=== PATIENT | female | born 1945 | race Caucasian/White ===

== ENCOUNTER 2021-08-12 15:56 | Outpatient (REF) | payer MEDICARE, SELFPAY ==
--- NOTE | ~2021-08-12 | US_ITS ---
EXAMINATION: US VENOUS ULTRASOUND WITH DOPPLER LOWER EXTREMITY, LEFT CLINICAL INFORMATION: Left leg edema COMPARISON: None TECHNIQUE: Ultrasound of the deep veins is performed from the hip to the calf with compression sonography and color and pulse Doppler assessment. Spectral analysis with color-flow imaging is performed. FINDINGS: There is normal venous compression and respiratory variation and augmented flow. The visualized common femoral vein, superficial femoral vein, profunda femoral vein, popliteal vein, and the trifurcation region shows no evidence of deep venous thrombosis. There is a small complex Riley's cyst. There are small normal-appearing left groin lymph nodes. US/US venous duplex LE LT IMPRESSION: No DVT demonstrated in the left lower extremity. Small Riley's cyst.
== END 2021-08-12 15:57 | disposition home or self-care (01) ==
LOC: HO.US 15:56
PROVIDERS: PCP Internal Medicine; Visit Provider Internal Medicine
DX: R60.0 Localized edema (principal)
CPT/HCPCS: 93971

== ENCOUNTER 2021-10-06 10:30 | Outpatient (REF) | payer MEDICARE, SELFPAY ==
--- NOTE | ~2021-10-06 | US_ITS ---
EXAMINATION: US ABDOMEN COMPLETE CLINICAL INFORMATION: Elevated liver function tests.. COMPARISON: None TECHNIQUE: Real-time imaging of the abdominal viscera. FINDINGS: PANCREAS: The visualized head and body of the pancreas appears unremarkable. Remainder of the pancreas is obscured by bowel gas. ABDOMINAL AORTA: The proximal, mid, and distal segments are normal in caliber. INFERIOR VENA CAVA: Visualized portions are normal. LIVER: Normal. The liver is normal in size. The liver contour is normal. Parenchymal echogenicity is normal. No focal hepatic lesion. There is no intrahepatic biliary duct dilatation seen. GALLBLADDER: Multiple echogenic nonmobile nonshadowing foci adjacent to the gallbladder wall, suggestive of polyps. The larger polyps measures 4 x 3 x 3 mm. No shadowing calculi. No wall thickening or pericholecystic fluid. COMMON BILE DUCT: Normal in caliber measuring 0.4 cm in diameter. RIGHT KIDNEY: Normal. No hydronephrosis. No renal calculi or focal parenchymal lesions. The kidney measures 10.3 cm in maximum dimension. LEFT KIDNEY: Normal. No hydronephrosis. No renal calculi or focal parenchymal lesions. The kidney measures 11.3 cm in maximum dimension. SPLEEN: Normal. The spleen measures 9.3 cm in maximum dimension. FREE FLUID: None. US/US abdomen complete IMPRESSION: 1. Findings suggest multiple gallbladder polyps, larger measuring 4 mm. Follow-up ultrasound in 6-12 months could be considered to ensure stability. 2. Otherwise unremarkable study.
== END 2021-10-06 10:31 | disposition home or self-care (01) ==
LOC: HO.HMGCX 10:30
PROVIDERS: PCP Internal Medicine; Visit Provider Internal Medicine
DX: R74.8 Abnormal levels of other serum enzymes (principal)
CPT/HCPCS: 76700

== ENCOUNTER 2022-04-14 08:47 | Outpatient (REF) | payer MEDICARE, SELFPAY ==
--- NOTE | ~2022-04-14 | US_ITS ---
EXAMINATION: US ABDOMEN COMPLETE CLINICAL INFORMATION: Elevated alkaline phosphatase. Gallbladder polyp. COMPARISON: Ultrasound abdomen complete 10/06/2021. TECHNIQUE: Real-time imaging of the abdominal viscera. FINDINGS: PANCREAS: Visualized head and body of the pancreas is homogeneous echotexture. The tail is not optimally visualized. ABDOMINAL AORTA: There is mild atherosclerosis of the abdominal aorta. INFERIOR VENA CAVA: Visualized portions are normal. LIVER: Normal. The liver is normal in size. The liver contour is normal. Parenchymal echogenicity is normal. No focal hepatic lesion. There is no intrahepatic biliary duct dilatation seen. GALLBLADDER: There are 3 nonmobile echogenic polyps along the inner gallbladder wall. The largest polyp measuring 0.5 x 0.5 x 0.4 cm. Gallbladder wall thickness measures 0.3 cm. The gallbladder is physiologically distended without evidence of stones, sludge, wall thickening or pericholecystic fluid. COMMON BILE DUCT: Normal in caliber measuring 0.6 cm in diameter. RIGHT KIDNEY: There is an anechoic cyst in the upper pole measuring 1.6 x 1.5 x 1.6 cm. There is mild pelvic fullness. No hydronephrosis or renal calculi. The kidney measures 11.2 cm in maximum dimension. LEFT KIDNEY: The left kidney is not optimally visualized. No hydronephrosis. No renal calculi or focal parenchymal lesions. The kidney measures 11.0 cm in maximum dimension. SPLEEN: Normal. The spleen measures 10.8 cm in maximum dimension. FREE FLUID: None. US/US abdomen complete IMPRESSION: At least 3 gallbladder polyps. No echogenic gallstones or wall thickening. Mild right kidney pelvic fullness with anechoic cyst upper pole measuring 1.6 cm. Mild atherosclerotic changes of abdominal aorta without dilation. Suboptimal visualization of left kidney.
== END 2022-04-14 08:48 | disposition home or self-care (01) ==
LOC: HO.US 08:47
PROVIDERS: PCP Internal Medicine; Visit Provider Internal Medicine
DX: K82.4 Cholesterolosis of gallbladder (principal); R74.8 Abnormal levels of other serum enzymes
CPT/HCPCS: 76700

== ENCOUNTER 2022-08-24 12:39 | Outpatient (REF) | payer MEDICARE, SELFPAY ==
--- NOTE | ~2022-08-24 | MM_ITS ---
EXAMINATION: MM SCREENING DIGITAL BREAST TOMOSYNTHESIS, BILATERAL CLINICAL INFORMATION: Screening. Asymptomatic. The lifetime risk of breast cancer based on the Tyrer-Cuzick Model is 2%. COMPARISON: Mammography: 06/12/2020, 11/01/2018, 09/14/2017 TECHNIQUE: Digital breast tomosynthesis is performed in both the craniocaudal and mediolateral oblique views along with computer-aided detection (CAD). Synthesized 2D images are generated from the tomosynthesis. FINDINGS: There are scattered areas of fibroglandular density (ACR BI-RADS breast composition Category b). Parenchymal pattern is similar to prior studies. There is no developing density or interval mass or architectural abnormality. There are vascular calcifications again noted primarily on the anterior breasts. Dermal lesion overlies the upper anterior left breast. The axilla are unremarkable. No significant changes. MM/MM tomosynthesis screening BI IMPRESSION: No mammographic evidence of malignancy. ASSESSMENT: BI-RADS 2: Benign RECOMMENDATION: Routine annual mammography screening. This patient's information was entered into a reminder system with a target due date for their next mammogram.
== END 2022-08-24 12:40 | disposition home or self-care (01) ==
LOC: HO.MAMMO 12:39
PROVIDERS: Visit Provider Internal Medicine
DX: Z12.31 Encounter for screening mammogram for malignant neoplasm of breast (principal)
CPT/HCPCS: 77063; 77067

== ENCOUNTER 2023-08-30 13:48 | Outpatient (REF) | payer MEDICARE, SELFPAY | END 2023-08-30 13:49 | disposition home or self-care (01) | LOC: HO.MAMMO 13:48 | PROVIDERS: PCP Internal Medicine; Visit Provider Radiology Diagnostic Radiology | DX: Z12.31 Encounter for screening mammogram for malignant neoplasm of breast (principal) | CPT/HCPCS: 77063; 77067 ==

== ENCOUNTER → 2023-08-30 14:00 | Outpatient (BNV) | payer MEDICARE, SELFPAY | PROVIDERS: PCP Internal Medicine; Visit Provider Radiology Diagnostic Radiology | DX: Z12.31 Encounter for screening mammogram for malignant neoplasm of breast (principal) | CPT/HCPCS: 77063; 77067 ==

== ENCOUNTER 2023-09-04 17:40 | Emergency (ER) | payer MEDICARE, SELFPAY ==
--- NOTE | ~2023-09-04 | XR_ITS ---
EXAMINATION: XR WRIST, RIGHT XR HAND, RIGHT CLINICAL INFORMATION: Fall, pain. COMPARISON: None available. TECHNIQUE: 4 views of the right wrist and right hand were obtained. FINDINGS: Comminuted, displaced and impacted distal radial fracture with intra-articular extension. Minimally displaced ulnar styloid fracture. Background of decreased bone mineralization with multifocal moderate to severe osteoarthritis manifested by joint space narrowing, subcortical sclerosis and in some sites marginal erosions; these are more prominent in the distal third and fourth interphalangeal joints, middle fifth interphalangeal joints, second and third metacarpophalangeal joints, and first carpometacarpal space. Chronic appearing fixed flexion deformities of the third, fourth and fifth distal phalanges. XR/XR hand wrist RT IMPRESSION: 1. Comminuted, impacted and displaced distal radial fracture with intra-articular extension. 2. Minimally displaced ulnar styloid fracture. 3. 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
--- NOTE | 2023-09-04 18:04 | ED_ITS ---
HPI - Fall General Chief Complaint: Extremity Injury, Upper Stated Complaint: fall at home, wrist injury Time Seen by Provider: 09/04/23 18:27 Source: patient and family Mode of arrival: wheelchair Limitations: no limitations History of Present Illness HPI Narrative: Patient is a 78-year-old female presents emergency department for evaluation after of Mechanical trip and fall while getting off of a stool at home. No precipitating symptoms. Sustaining injury to right wrist and right hip (history bilateral hip replacement). Denies head strike loss of consciousness. Denies use of anticoagulants. Denies numbness tingling. Related Data Previous Rx's Medication Instructions Recorded oxycodone 5 mg tablet 5 mg PO Q6H PRN pain #14 tabs 09/04/23 Allergies Allergy/AdvReac Type Severity Reaction Status Date / Time oxaprozin [Daypro] Allergy Unknown Rash Verified 09/04/23 18:09 alendronate sodium Allergy Unknown Verified 09/04/23 18:09 amlodipine Allergy Swelling Verified 09/04/23 18:09 amoxicillin Allergy Diarrhea Verified 09/04/23 18:09 azithromycin Allergy Rash Verified 09/04/23 18:09 carvedilol Allergy Joint Pain Verified 09/04/23 18:09 hydrochlorothiazide Allergy Unknown Verified 09/04/23 18:09 labetalol Allergy Swelling Verified 09/04/23 18:09 nitrofurantoin Allergy Gastrointestinal Verified 09/04/23 18:09 Upset Sulfa (Sulfonamide Allergy Gastrointestinal Verified 09/04/23 18:09 Antibiotics) Upset sulfamethoxazole Allergy Gastrointestinal Verified 09/04/23 18:09 [From Upset Sulfamethoxazole-Trimethoprim] trimethoprim Allergy Gastrointestinal Verified 09/04/23 18:09 [From Upset Sulfamethoxazole-Trimethoprim] Caltrate 600 Allergy Unknown Unknown Uncoded 09/04/23 18:04 Flonase Allergy Unknown Unknown Uncoded 09/04/23 18:04 Review of Systems Review of Systems: Yes all other systems are reviewed and are negative PMFSH Past Medical History Attestation statement: The following information was validated with the patient. Source: old records reviewed Social History Social History Smoked in Last 30 Days: No Use of substances other than those prescribed or required for medical reasons: No Advance Directives: No Advance Directives Information Provided: Yes Physical Exam Vital Signs: Vital Signs: Last Vital Signs Temp 96.1 F L 09/04/23 18:09 Pulse 79 09/04/23 20:00 Resp 16 09/04/23 20:00 BP 165/82 H 09/04/23 20:00 Pulse Ox 97 09/04/23 20:00 O2 Del Method Room Air 09/04/23 20:00 BMI result Body Mass Index 23.2 Appearance: Alert.?Oriented to person, place and time. No acute distress.?Normal affect. Head: Normocephalic, Eyes: Pupils equal, round and reactive to light.? ENT: Pharynx normal.?? Neck: Normal inspection.? Neck supple.??No midline cervical spine tenderness, step-offs, CVS: Heart sounds normal. Normal heart rate and rhythm.? Pulses normal.?? Respiratory: No respiratory distress.? Lung sounds clear to auscultation bilaterally?? Abdomen: Soft and non-tender. Normoactive bowel sounds. Skin: Skin warm and dry.? Normal skin color.? Extremities: No lower extremity edema.? No calf ttp?pain upon palpation of the right lateral hip. 2+ DP/PT pulse bilaterally. No shortening or rotation of the right lower extremity. Right wrist 2+ radial pulse, localized swelling along the radial, decreased AROM, tenderness to palpation. Neuro: Moves all extremities spontaneously. Sensation intact bilaterally. CN II- XII intact. No focal neuro deficits. Medications Administered Discontinued Medications Generic Name Dose Route Start Last Admin Trade Name Freq PRN Reason Stop Dose Admin Acetaminophen 975 mg 09/04/23 18:30 09/04/23 19:01 Acetaminophen 325 Mg Tablet PO 09/04/23 18:31 975 mg ONCE ONE Administration Oxycodone HCl 5 mg 09/04/23 19:55 09/04/23 20:05 Oxycodone Hcl Immed Release 5 Mg Tablet PO 09/04/23 19:56 5 mg ONCE ONE Administration Procedures Orthopedic Splinting/Casting Injury #1: Side: right Upper Extremity Injury Location: wrist Upper Extremity Immobilizer: sugar tong splint Medical Decision Making Medical Decision Making MDM Narrative: Patient is a 78-year-old female who presents emergency department for evaluation after mechanical fall landing on the right hand and hip with pain as per HPI. Examination notable for tenderness upon palpation of the right lateral hip, tenderness and swelling to the radial aspect of the wrist with decreased AROM. Bilateral upper and lower extremities are neurovascularly intact distally. Denies any head strike or loss of consciousness and She has no focal neurological deficits. She presents here with her family today who confirms history. No precipitating symptoms to suggest alternative cause for fall. XR imaging ordered for right hip she however refuses, reporting that she does not believe there is anything ?seriously injured?. XR imaging of the wrist reveals a comminuted impacted distal radius fracture, ulnar styloid fracture for which she was placed in a sugar-tong splint, remained neurovascularly intact distally after application. Advised that she will require outpatient follow-up with orthopedics. Reviewed worrisome signs and symptoms that would warrant re- evaluation in the emergency department. Differential Diagnosis Differential Diagnoses: The differential diagnosis associated with the presentation includes (Fracture, dislocation, sprain, fall) Independent Interpretation I performed an independent interpretation of an: Plain X-Ray (I person interpreted XR imaging and) Radiology Impression Discussion of test interpretation with radiology: I have reviewed the radiologist's reading. Independent Historian Clinical information obtained from an independent historian. History obtained from or confirmed by: Other (Daughter present who confirms history) External Record Review External record reviewed: Outpatient record and Other ([facility], no conflicts) Prescription Management I considered prescription management with: Pain Medication Discharge Plan Discharge Clinical Impression: Fracture of right ulnar styloid Distal radius fracture, right Qualifiers: Encounter type: initial encounter Fracture type: closed Patient Disposition: Home, Self-Care Instructions: Wrist Fracture in Adults (ED) Additional Instructions: Wear the sling as provided. The splint must remain in place at all times. It cannot be removed. It cannot get wet. Please be sure to rest, apply ice for 10-15 minutes 4 times daily. Elevate the arm above the level of your chest. You can take Tylenol 500 mg, 2 tablets (1,000mg) every 4-6 hours as needed for pain, but not to exceed 3 doses daily (3,000mg). I have sent a prescription for oxycodone to the pharmacy to use as needed for pain that is unrelieved by Tylenol. This is a narcotic medication. May make you drowsy. He can be addictive. You should not drive, drink alcohol, operate machinery while taking this medication. I have provided you with the contact information for the orthopedic office associated with this hospital. Should you wish to follow-up with your previous orthopedic office you are entitled to do so, they may contact the Medical Records Department to obtain imaging results. Return back to the emergency department with any new or worsening symptoms or concerns including severe worsening pain, discoloration to the fingers, persistent numbness, inability to move the fingers. XR/XR hand wrist RT IMPRESSION: 1. Comminuted, impacted and displaced distal radial fracture with intra-articular extension. 2. Minimally displaced ulnar styloid fracture. 3. 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 ? Prescriptions: New oxycodone 5 mg tablet 5 mg PO Q6H PRN (Reason: pain) Qty: 14 0RF Rx Instructions: Partial Fill upon patient request. Referrals: Balaji Mercado MD [Primary Care Provider] - Veronica Carey MD [Physician] -
[2023-09-04 18:09] VITALS: BP 177/80; PULSE 70; RESP 18; TEMP 35.6; O2SAT 100; BMI 23.2
[2023-09-04] MEDS: Acetaminophen 325 MG TABLET 975 MG PO (19:01)
[2023-09-04 20:00] VITALS: BP 165/82; PULSE 79; RESP 16; O2SAT 97
[2023-09-04] MEDS: oxyCODONE HCl Immed Release 5 MG TABLET PO (20:05)
--- NOTE | 2023-09-04 20:27 | PC.NURSE ---
sling applied by alana guzman at bedside. no distress- tolerated well.
--- NOTE | 2023-09-04 20:46 | PC.NURSE ---
pt d/c'd w sling intact. aware of d/c instructions by rn education. walked out w steady gait.
== END 2023-09-04 20:46 | disposition home or self-care (01) ==
PROVIDERS: Emergency Provider Internal Medicine; PCP Internal Medicine
DX: S52.611A Displaced fracture of right ulna styloid process, initial encounter for closed fracture (principal); S52.571A Other intraarticular fracture of lower end of right radius, initial encounter for closed fracture; W17.89XA Other fall from one level to another, initial encounter; Y93.9 Activity, unspecified; Y92.9 Unspecified place or not applicable; Y99.9 Unspecified external cause status
CPT/HCPCS: 29125; 73110; 73130; 99283; 99284

== ENCOUNTER 2023-09-09 14:38 | Outpatient (AMB) | payer MEDICARE, SELFPAY ==
--- NOTE | 2023-09-09 14:40 | A.OFFVIS_ITS ---
Intake Intake Visit Reasons: FC- Distal radius fx Intake Note: Samantha is a 78 year old right hand dominant female who presents today for a evaluation of her right wrist fx, DOI 09/04/23. Patient reports when she was cleaning her cabinets she lost balance and she fell on her right arm and right hip. She states having pain in her wrist and she feels pressure. Having off and on numbness and swelling. Allergies oxaprozin [Daypro] Allergy (Unknown, Verified 09/04/23 18:09) Rash alendronate sodium Allergy (Verified 09/04/23 18:09) Unknown amlodipine Allergy (Verified 09/04/23 18:09) Swelling amoxicillin Allergy (Verified 09/04/23 18:09) Diarrhea azithromycin Allergy (Verified 09/04/23 18:09) Rash carvedilol Allergy (Verified 09/04/23 18:09) Joint Pain hydrochlorothiazide Allergy (Verified 09/04/23 18:09) Unknown labetalol Allergy (Verified 09/04/23 18:09) Swelling nitrofurantoin Allergy (Verified 09/04/23 18:09) Gastrointestinal Upset Sulfa (Sulfonamide Antibiotics) Allergy (Verified 09/04/23 18:09) Gastrointestinal Upset sulfamethoxazole [From Sulfamethoxazole-Trimethoprim] Allergy (Verified 09/04/23 18:09) Gastrointestinal Upset trimethoprim [From Sulfamethoxazole-Trimethoprim] Allergy (Verified 09/04/23 18:09) Gastrointestinal Upset Caltrate 600 Allergy (Unknown, Uncoded 09/04/23 18:04) Unknown Flonase Allergy (Unknown, Uncoded 09/04/23 18:04) Unknown HPI FC- Distal radius fx HPI Details 78-year-old right hand dominant female anisha robles presents in the office today, as a new patient, for an evaluation of right wrist pain. The patient presented to the ED on 09/04/2023 status post a mechanical trip and fall while getting off of a stool at home while cleaning her cabinets. She states when she fell she hit her right arm and hip. X-rays of the right wrist were obtained. The patient was placed in a sugar tong splint and referred to orthopedics. She reports having pain in her right wrist with pressure. She confirms intermittent numbness and edema. She is accompanied in the office today by her daughter, who works at [employer], and will help to care for her mother post-op surgery and her son. Patient has an allergy history, as follows: -Oxaprozin; rash -Alendronate sodium; unknown -Amlodipine; edema -Amoxicillin; diarrhea -Azithromycin; rash -Carvedilol; joint pain -Hydrochlorothiazide; unknown -Labetalol; edema -Nitrofurantoin; GI upset -Sulfa; GI upset -Sulfamethoxazole; GI upset -Trimethoprim; GI upset -Caltrate 600; unknown -Flonase; unknown Patient is currently taking, as follows: -Betamethasone dipropionate 0.05% topica l cream -Hydrocortisone 2.5% topical cream BID -Loratadine 10 mg PO daily -Metronidazole 0.75% topical BID -Olmesartan 40 mg PO daily -Oxycodone 5 mg PO Q6H PRN Patient has a medical history, as follows: -Rheumatoid arthritis in the upper extre mities -Hypothyroid -Hypertension -Osteopenia Patient has a surgical history, as follows: -History of right hip arthroplasty -History of left hip arthroplasty Patient has a social history, as follows: -She is unemployed but stays active at [employer] [employer]. Review of Systems Const All systems reviewed & are unremarkable except as noted in HPI and below Physical Exam Const General: cooperative and no acute distress Orientation/consciousness: patient oriented x3 Resp Effort & Inspection: normal respiratory effort and able to speak in complete sentences Cardio Peripheral pulses: Peripheral pulses 2+ throughout Skin General skin exam: no rashes or lesions noted Neuro General: patient oriented x3 Extrem Other: Right wrist: Skin is intact. Circumferential resolving ecchymosis at the distal bicep extending to the elbow. Able to move all digits. Able to perform thumbs up. Sensation intact. Capillary refill is brisk. Office Procedures Casting/Splints [id number] Splint Application Procedure code (CPT) selection complete Assessment & Plan Assessment & Plan (1) Distal radius fracture, right: Code(s): S52.501A - Unspecified fracture of the lower end of right radius, initial encounter for closed fracture Qualifiers: Encounter type: initial encounter Fracture morphology: other fracture Fracture type: closed Qualified Code(s): S52.591A - Other fractures of lower end of right radius, initial encounter for closed fracture (2) Fracture of right ulnar styloid: Code(s): S52.611A - Displaced fracture of right ulna styloid process, initial encounter for closed fracture Qualifiers: Encounter type: initial encounter Fracture alignment: displaced Fracture type: closed Qualified Code(s): S52.611A - Displaced fracture of right ulna styloid process, initial encounter for closed fracture (3) Osteoarthritis of right wrist: Code(s): M19.031 - Primary osteoarthritis, right wrist Qualifiers: Osteoarthritis type: unspecified Qualified Code(s): M19.031 - Primary osteoarthritis, right wrist Plan Ms. Lr is a 78-year-old right hand dominant female who presents in the office today, as a new patient, for an evaluation of right wrist pain. The patient presented to the ED on 09/04/2023 status post a mechanical trip and fall while getting off of a stool at home while cleaning her cabinets. She states when she fell she hit her right arm and hip. X-rays of the right wrist were obtained. The patient was placed in a sugar tong splint and referred to orthopedics. She reports having pain in her right wrist with pressure. She confi guillermo intermittent numbness and edema. She is accompanied in the office today by her daughter, who works at [employer], and will help to care for her mother post-op surgery and her son. Patient has an allergy history, as follows: -Oxaprozin; rash -Alendronate sodium; unknown -Amlodipine; edema -Amoxicillin; diarrhea -Azithromycin; rash -Carvedilol; joint pain -Hydrochlorothiazide; unknown -Labetalol; edema -Nitrofurantoin; GI upset -Sulfa; GI upset -Sulfamethoxazole; GI upset -Trimethoprim; GI upset -Caltrate 600; unknown -Flonase; unknown Patient is currently taking, as follows: -Betamethasone dipropionate 0.05% topical cream -Hydrocortisone 2.5% topical cream BID -Loratadine 10 mg PO daily -Metronidazole 0.75% topical BID -Olmesartan 40 mg PO daily -Oxycodone 5 mg PO Q6H PRN Patient has a medical history, as follows: -Rheumatoid arthritis in the upper extremities -Hypothyroid -Hypertension -Osteopenia Patient has a surgical history, as follows: -History of right hip arthroplasty -History of left hip arthroplasty Patient has a social history, as follows: -She is unemployed but stays active at home. I discussed in detail the procedure and what to expect pre and post operatively. We discussed the risks, benefits and alternatives to the surgery as well as the rehabilitation course. The risks; which include, but are not limited to infection, bleeding, nerve injury, ongoing pain, swelling, and stiffness, perioperative risk of injury to bones and soft tissues, and blood clots. I have answered all questions and with their understanding they have consented to move forward with a right wrist open reduction internal fixation to be performed on next week by Dr. Mustapha Gan. Dr. Gan was available to speak with me about the patient while in the office and collaborative treatment plan was made. The patient was placed in a short arm volar splint, custom made, while in the office today. Follow up will be at the post operative appointment, or sooner if needed. X-rays of the right wrist, obtained on 09/04/2023, revealed: 1. Comminuted, impacted and displaced distal radial fracture with intra-articular extension. 2. Minimally displaced ulnar styloid fracture. 3. 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 Patient Instructions: Scribed for Christina Lozoya PA-C by Yakelin Guido medical office technologist, on 09/09/2023 at 2:42 pm, EST. Coding Level of Care Code New Pt Level 4 (05822) Diagnoses Other closed fracture of distal end of right radius, initial encounter S52.591A Encounter type: initial encounter Fracture morphology: other fracture Fracture type: closed Closed displaced fracture of styloid process of right ulna, initial encounter S52.611A Encounter type: initial encounter Fracture alignment: displaced Fracture type: closed Osteoarthritis of right wrist, unspecified osteoarthritis type M19.031 Osteoarthritis type: unspecified CPT Codes Splint - CPT: 99202-[id number] Splint Application ([id number])
== END 2023-09-09 16:00 ==
PROVIDERS: PCP Internal Medicine; Visit Provider Physician Assistant
DX: S52.591A Other fractures of lower end of right radius, initial encounter for closed fracture (principal); S52.611A Displaced fracture of right ulna styloid process, initial encounter for closed fracture; M19.031 Primary osteoarthritis, right wrist
CPT/HCPCS: 25600; 99204

== ENCOUNTER → 2023-09-09 14:38 | Outpatient (BNVA) | payer MEDICARE, SELFPAY | PROVIDERS: PCP Internal Medicine; Visit Provider Physician Assistant | DX: S52.591A Other fractures of lower end of right radius, initial encounter for closed fracture (principal); S52.611A Displaced fracture of right ulna styloid process, initial encounter for closed fracture; M19.031 Primary osteoarthritis, right wrist | CPT/HCPCS: 25600; 99202 ==

== ENCOUNTER 2023-09-15 06:23 | Day surgery (SDC) | payer MEDICARE, SELFPAY ==
--- NOTE | 2023-09-14 12:06 | HO.ANESPROP2 ---
Documented by User: Renetta Eller NP 09/14/23 12:08 HPI - Anesthesia Eval Consult details Narrative: 78yo F for Right Radius Distal Fracture ORIF *Multiple Med allergies* PMFSH Active Problems Active Problems: All Active Problems (Updated 09/09/23 @ 15:20 by Yakelin Guido) Osteoarthritis of right wrist (Acute) Past Medical History Medical History Osteopenia Hypothyroid HLD (hyperlipidemia) HTN (hypertension) Rheumatoid arthritis Surgical History Surgical History S/P total left hip arthroplasty S/P total right hip arthroplasty Social History Social History Patient Tobacco Use Status: Never used Tobacco Have you been hit, kicked, punched, or otherwise hurt by someone within the past year? If so, by whom?: No Are you DNR?: No Advance Directives: No Advance Directives Information Provided: Yes Nutrition Risks: No Nutritional Risk Patient : No Meds Allergies Allergy/AdvReac Type Severity Reaction Status Date / Time oxaprozin [Daypro] Allergy Unknown Rash Verified 09/04/23 18:09 alendronate sodium Allergy Unknown Verified 09/04/23 18:09 amlodipine Allergy Swelling Verified 09/04/23 18:09 amoxicillin Allergy Diarrhea Verified 09/04/23 18:09 azithromycin Allergy Rash Verified 09/04/23 18:09 carvedilol Allergy Joint Pain Verified 09/04/23 18:09 hydrochlorothiazide Allergy Unknown Verified 09/04/23 18:09 labetalol Allergy Swelling Verified 09/04/23 18:09 nitrofurantoin Allergy Gastrointestinal Verified 09/04/23 18:09 Upset Sulfa (Sulfonamide Allergy Gastrointestinal Verified 09/04/23 18:09 Antibiotics) Upset sulfamethoxazole Allergy Gastrointestinal Verified 09/04/23 18:09 [From Upset Sulfamethoxazole-Trimethoprim] trimethoprim Allergy Gastrointestinal Verified 09/04/23 18:09 [From Upset Sulfamethoxazole-Trimethoprim] Caltrate 600 Allergy Unknown Unknown Uncoded 09/04/23 18:04 Flonase Allergy Unknown Unknown Uncoded 09/04/23 18:04 Home Medications Medication Instructions Recorded Confirmed Last Taken Type betamethasone dipropionate 0.05 % appl topical 09/09/23 Unknown History topical cream hydrocortisone 2.5 % topical cream appl topical BID 09/09/23 Unknown History loratadine 10 mg tablet 10 mg PO DAILY 09/09/23 Unknown History metronidazole 0.75 % topical cream appl topical BID 09/09/23 Unknown History mupirocin 2 % topical ointment 1 appl topical BID-TID 09/09/23 Unknown History olmesartan 40 mg tablet 40 mg PO DAILY 09/09/23 Unknown History Assessment and Plan Assessment Anesthesia Assessment: Chart Reviewed Documented by User: Alejandro Haynes MD 09/15/23 07:34 [facility] Past Medical History Medical History Osteopenia Hypothyroid HLD (hyperlipidemia) HTN (hypertension) Rheumatoid arthritis Family History Family history of problems with anesthesia: No Surgical History Surgical History S/P total left hip arthroplasty S/P total right hip arthroplasty History of Problems with Anesthesia: No Social History Social History Patient Tobacco Use Status: Never used Tobacco Have you been hit, kicked, punched, or otherwise hurt by someone within the past year? If so, by whom?: No Are you DNR?: No Advance Directives: No Advance Directives Information Provided: Yes Nutrition Risks: No Nutritional Risk Patient : No Meds Allergies Allergy/AdvReac Type Severity Reaction Status Date / Time oxaprozin [Daypro] Allergy Unknown Rash Verified 09/04/23 18:09 alendronate sodium Allergy Unknown Verified 09/04/23 18:09 amlodipine Allergy Swelling Verified 09/04/23 18:09 amoxicillin Allergy Diarrhea Verified 09/04/23 18:09 azithromycin Allergy Rash Verified 09/04/23 18:09 carvedilol Allergy Joint Pain Verified 09/04/23 18:09 hydrochlorothiazide Allergy Unknown Verified 09/04/23 18:09 labetalol Allergy Swelling Verified 09/04/23 18:09 nitrofurantoin Allergy Gastrointestinal Verified 09/04/23 18:09 Upset Sulfa (Sulfonamide Allergy Gastrointestinal Verified 09/04/23 18:09 Antibiotics) Upset sulfamethoxazole Allergy Gastrointestinal Verified 09/04/23 18:09 [From Upset Sulfamethoxazole-Trimethoprim] trimethoprim Allergy Gastrointestinal Verified 09/04/23 18:09 [From Upset Sulfamethoxazole-Trimethoprim] Caltrate 600 Allergy Unknown Unknown Uncoded 09/04/23 18:04 Flonase Allergy Unknown Unknown Uncoded 09/04/23 18:04 Home Medications Medication Instructions Recorded Confirmed Last Taken Type betamethasone dipropionate 0.05 % appl topical 09/09/23 Unknown History topical cream hydrocortisone 2.5 % topical cream appl topical BID 09/09/23 Unknown History loratadine 10 mg tablet 10 mg PO DAILY 09/09/23 Unknown History metronidazole 0.75 % topical cream appl topical BID 09/09/23 Unknown History mupirocin 2 % topical ointment 1 appl topical BID-TID 09/09/23 Unknown History olmesartan 40 mg tablet 40 mg PO DAILY 09/09/23 Unknown History Exam Airway Mallampati Class: II TM Dist: >3cm Neck ROM: Limited Heart: rrr Lungs: cta Assessment and Plan Assessment Anesthesia Assessment: Anesthesia Plan Discussed Final Anesthetic Review Family History of Problems with Anesthesia: No History of Problems with Anesthesia: No NPO: Yes ASA Class: III Final Preanesthetic Review: No Changes in Pt Med Stat, Meds/Allgs Chart Reviewed, Consent Obtained/Reviewed and Anes Risks/Benef Reviewed Patient Risk: Intermediate Procedure Risk: Intermediate Anesthetic Plan Anesthetic Plan: GA, Regional Block and Agree w/ Assess. and Plan Disposition: Standard PACU
[2023-09-15] VITALS (7 sets, daily range): BP systolic 157–190; BP diastolic 70–82; PULSE 66–75; RESP 12–18; TEMP 36.6–36.8; O2SAT 98–100; BMI 23.4
--- NOTE | ~2023-09-15 | FL_ITS ---
EXAMINATION: XR FLUOROSCOPY WITH IMAGES CLINICAL INFORMATION: Fracture right distal radius. COMPARISON: Right hand x-ray 09/04/2023 TECHNIQUE: Fluoroscopy Supervised By: Dr. Mustapha Gan. Fluoroscopy Time: 23.44 seconds. Cumulative Dose: 0.4663 mGy. DAP: 0.0282 Gycm2. Images: 2. FINDINGS: Images demonstrate plate and screws transfixing the right distal radius fracture. There is improved alignment. FL/FL guidance in OR IMPRESSION: Fluoroscopic guidance for ORIF of right distal radius fracture.
[2023-09-15] MEDS: Lactated Ringers 1,000 ML 100 ML IVCONT (07:33)
--- NOTE | 2023-09-15 14:56 | PM.OP ---
Brief Operative Note Date of Service: 09/15/23 Pre-op diagnosis: Right distal radius fracture Post-op diagnosis: same Procedure: ORIF right distal radius fracture Implants: Le[place]aker Surgeon: Mustapha Gan MD Anesthesia: GETA Was an Binder Cutter used for this Procedure?: No Binder Cutter: Christina Lozoya Estimated blood loss (mL): 25 Tourniquet time (min): 40 IV fluids (mL): 750 Pathology: none sent Condition: stable Disposition: PACU
--- NOTE | 2023-09-17 12:58 | W.PM.OPN ---
Operative Note Operative Note Date of Service: 09/15/23 Narrative: Date of Service: 09/15/23 Pre-op diagnosis: Right distal radius fracture Post-op diagnosis: same Procedure: ORIF right distal radius fracture Implants: [place] Surgeon: Mustapha Gan MD Anesthesia: GETA Was an Relations Liaison used for this Procedure?: No Relations Liaison: Christina Lozoya Estimated blood loss (mL): 25 Tourniquet time (min): 40 IV fluids (mL): 750 Pathology: none sent Condition: stable Disposition: PACU Procedure in detail: The patient was brought to the operating room and placed supine on the hand table. The limb was prepped and draped in standard fashion and a time-out was called to identify proper site procedure proper surgeon. IV antibiotics per weight were administered. I began by exsanguinating the limb and insufflating the tourniquet to 250 mm Hg. I then made a standard incision over the FCR. FCR sheath was incised and the FCR was retracted ulnar. A irasema incision was made in the FPL sheath and this was opened up proximally and distally. The FPL was swept aside revealing the pronator quadratus which was periosteally elevated off the distal radius revealing a displaced distal radius fracture. I used a [place] and right your to remove necrotic debris and reduced the fracture. Using biplanar fluoroscopy I was satisfied with the reduction . A 0.54 K-wire was placed through the radial styloid into the radial shaft to provisionally maintain the reduction. A [place] distal radius plate was selected and placed on the distal radius. Fluoroscopic images were taken to confirm appropriate alignment on the AP and lateral projection. Once I was satisfied with this the radial styloid screw and the distal row were placed using standard AO technique. I then filled the proximal row with locking screws again confirming fracture reduction and hardware position using biplanar fluoroscopy. Once this was done I placed 2 proximal nonlocking screws through the cortical shaft reducing the plate to the bone and reapproximating the anatomic tilt of the distal radius on the lateral projection. Again once I was satisfied with the position of the plate and the fracture alignment all instrumentation was removed. The DRUJ was assessed and found to be stable and a layered closure was performed with absorbable sub-Q suture, a running prolene and skin glue. Sterile dressings were applied. Patient was placed into a well-padded volar splint. Patient was extubated brought to recovery room in stable condition there were no known complications.
== END 2023-09-15 11:30 | disposition home or self-care (01) ==
PROVIDERS: PCP Internal Medicine; Visit Provider Orthopaedic Surgery
PROC: (CPT 25608; principal; 2023-09-15 08:20)
DX: S52.571A Other intraarticular fracture of lower end of right radius, initial encounter for closed fracture (principal); S52.611A Displaced fracture of right ulna styloid process, initial encounter for closed fracture; M19.031 Primary osteoarthritis, right wrist; M06.9 Rheumatoid arthritis, unspecified; M85.80 Other specified disorders of bone density and structure, unspecified site; W08.XXXA Fall from other furniture, initial encounter; Y93.E9 Activity, other interior property and clothing maintenance; Y92.000 Kitchen of unspecified non-institutional (private) residence as the place of occurrence of the external cause; Y99.9 Unspecified external cause status; Z96.643 Presence of artificial hip joint, bilateral; I10 Essential (primary) hypertension; E03.9 Hypothyroidism, unspecified; Z79.899 Other long term (current) drug therapy; Z88.1 Allergy status to other antibiotic agents; Z88.2 Allergy status to sulfonamides; Z88.8 Allergy status to other drugs, medicaments and biological substances
CPT/HCPCS: 25608; C1713; J0665; J0690; J1100; J2405; J2704

== ENCOUNTER → 2023-09-15 06:23 | Outpatient (BNV) | payer MEDICARE, SELFPAY | PROVIDERS: PCP Internal Medicine; Visit Provider Orthopaedic Surgery | DX: S52.571A Other intraarticular fracture of lower end of right radius, initial encounter for closed fracture (principal) | CPT/HCPCS: 25608 ==

== ENCOUNTER 2023-09-21 12:09 | Outpatient (AMB) | payer MEDICARE, SELFPAY ==
--- NOTE | 2023-09-21 12:24 | A.OFFVIS_ITS ---
Intake Intake Visit Reasons: PO Rt distal radius ORIF 09/15/23 NE Intake Note: Samantha is a 78 year old female who presents today for a post op appointment s/p right distal radius ORIF 09/15/23 NE. Patient reports she is doing well, however just having numbness in her fingers. Allergies oxaprozin [Daypro] Allergy (Unknown, Verified 09/21/23 12:29) Rash alendronate sodium Allergy (Verified 09/21/23 12:29) Unknown amlodipine Allergy (Verified 09/21/23 12:29) Swelling amoxicillin Allergy (Verified 09/21/23 12:29) Diarrhea azithromycin Allergy (Verified 09/21/23 12:29) Rash carvedilol Allergy (Verified 09/21/23 12:29) Joint Pain hydrochlorothiazide Allergy (Verified 09/21/23 12:29) Unknown labetalol Allergy (Verified 09/21/23 12:29) Swelling nitrofurantoin Allergy (Verified 09/21/23 12:29) Gastrointestinal Upset Sulfa (Sulfonamide Antibiotics) Allergy (Verified 09/21/23 12:29) Gastrointestinal Upset sulfamethoxazole [From Sulfamethoxazole-Trimethoprim] Allergy (Verified 09/21/23 12:29) Gastrointestinal Upset trimethoprim [From Sulfamethoxazole-Trimethoprim] Allergy (Verified 09/21/23 12:29) Gastrointestinal Upset Caltrate 600 Allergy (Unknown, Uncoded 09/04/23 18:04) Unknown Flonase Allergy (Unknown, Uncoded 09/04/23 18:04) Unknown HPI PO Rt distal radius ORIF 09/15/23 NE HPI Details 78-year-old right hand dominant female w ho presents in the office today 6 days status post right wrist distal radius fracture ORIF, which was performed on 09/15/[address] Gan. While in the office today the patient reports she is doing well. However, she reports some numbness in her fingers that is intermittent. PFSH Medical History Osteopenia Hypothyroid HLD (hyperlipidemia) HTN (hypertension) Rheumatoid arthritis Surgical History S/P total left hip arthroplasty S/P total right hip arthroplasty Social History Patient Tobacco Use Status: Never used Tobacco Review of Systems Const All systems reviewed & are unremarkable except as noted in HPI and below Physical Exam Const General: cooperative, healthy appearing and no acute distress Resp Effort & Inspection: normal respiratory effort and able to speak in complete sentences Cardio Rate: regular rate Peripheral pulses: Peripheral pulses 2+ throughout GI Palpation (GI): Soft to palpation Skin Lesions: no lesions Rashes: no rashes Extrem Other: Right wrist: Incision site is clean, dry, and intact. Ecchymosis along the volar of the distal radius. No surrounding erythema or drainage. No signs of infection. Able to flex and extend all digits. Lacking about 3 cm from making a closed fist. NVI. Occasional numbness and tingling reported in all fingers dorsal and volar. Capillary refill is brisk. Assessment & Plan Assessment & Plan (1) Distal radius fracture, right: Code(s): S52.501A - Unspecified fracture of the lower end of right radius, initial encounter for closed fracture Qualifiers: Encounter type: initial encounter Fracture morphology: other fracture Fracture type: closed Qualified Code(s): S52.591A - Other fractures of lower end of right radius, initial encounter for closed fracture (2) Fracture of right ulnar styloid: Code(s): S52.611A - Displaced fracture of right ulna styloid process, initial encounter for closed fracture Qualifiers: Encounter type: initial encounter Fracture alignment: displaced Fracture type: closed Qualified Code(s): S52.611A - Displaced fracture of right ulna styloid process, initial encounter for closed fracture (3) Osteoarthritis of right wrist: Code(s): M19.031 - Primary osteoarthritis, right wrist Qualifiers: Osteoarthritis type: unspecified Qualified Code(s): M19.031 - Primary osteoarthritis, right wrist Plan Ms. Lr is a 78-year-old right hand dominant female who presents in the office today 6 days status post right wrist distal radius fracture ORIF, which was performed on 09/15/[address] Gan. While in the office today the patient reports she is doing well. However, she reports some numbness in her fingers. The patient was re-educated she can work on gentle ROM of the elbow, wrist, and hand. She was instructed she does not have to wear the sling at night, but can wear it for comfort. She should not allow the arm to hang down as this may result in increased swelling. She was places in a custom made cast while in the office today. She was educated should the cast become loose, dirty, wet, or have any damage or if she is concerned about an increase in pain she should contact the office immediately or present to the emergency room. She demonstrates understanding. We discussed pain management as she is taking percocet, but for the first hour after taking the medication she reports dizziness. She states she is taking the percocet when she feels a ?little twinge? of pain. She was instructed she should stay on top of her pain medication. She is unsure is she should take the percocet or not. She also had a question about if she should supplement the percocet with Tylenol. I educated the patient she should take no more than 2,000 mg of Tylenol per day. I gave her two options which included to continue on her current pain management regiment or she can discontinue the narcotics and stick to the Tylenol. This will depend on her pain management. I demonstrated exercises for the patient to work on while in the office today to help her get fingertips to palm. I instructed her she should use her good hand over the top of her fingertips to help slowly stretch her fingertips down until she is a little uncomfortable. Then she is to hold for 10 seconds. Release and repeat until her fingertips reach the palm. The patient is hesitant and it is unclear if she will follow these directions. However, I explained this is necessary to avoid stiffness. Out of an abundance of caution I would like for her to follow up will be in 1 week for a wound check and repeat x-rays, or sooner if needed. Patient Instructions: Scribed for Christina Lozoya PA-C by Yakelin Guido biomedical engineering technician, on 09/21/2023 at 12:11 pm, EST. Coding Level of Care Code Global (49726) Diagnoses Other closed fracture of distal end of right radius, initial encounter S52.591A Encounter type: initial encounter Fracture morphology: other fracture Fracture type: closed Closed displaced fracture of styloid process of right ulna, initial encounter S52.611A Encounter type: initial encounter Fracture alignment: displaced Fracture type: closed Osteoarthritis of right wrist, unspecified osteoarthritis type M19.031 Osteoarthritis type: unspecified
== END 2023-09-21 13:21 | disposition home or self-care (01) ==
PROVIDERS: PCP Internal Medicine; Visit Provider Physician Assistant
DX: S52.591A Other fractures of lower end of right radius, initial encounter for closed fracture (principal); S52.611A Displaced fracture of right ulna styloid process, initial encounter for closed fracture; M19.031 Primary osteoarthritis, right wrist
CPT/HCPCS: 99024

== ENCOUNTER → 2023-09-21 12:09 | Outpatient (BNVA) | payer MEDICARE, SELFPAY | PROVIDERS: PCP Internal Medicine; Visit Provider Physician Assistant | DX: S52.591D Other fractures of lower end of right radius, subsequent encounter for closed fracture with routine healing (principal); S52.611D Displaced fracture of right ulna styloid process, subsequent encounter for closed fracture with routine healing; M19.031 Primary osteoarthritis, right wrist | CPT/HCPCS: 99212 ==

== ENCOUNTER 2023-09-28 09:25 | Outpatient (REF) | payer MEDICARE, SELFPAY | END 2023-09-28 09:26 | disposition home or self-care (01) | LOC: HO.HOSX 09:25 | PROVIDERS: Visit Provider Physician Assistant | DX: S52.611D Displaced fracture of right ulna styloid process, subsequent encounter for closed fracture with routine healing (principal); S52.591D Other fractures of lower end of right radius, subsequent encounter for closed fracture with routine healing; M19.031 Primary osteoarthritis, right wrist | CPT/HCPCS: 29085; 73110; 99212 ==

== ENCOUNTER 2023-09-28 13:14 | Outpatient (AMB) | payer MEDICARE, SELFPAY ==
--- NOTE | 2023-09-28 13:31 | A.OFFVIS_ITS ---
Intake Intake Visit Reasons: PO Rt distal radius ORIF 09/15/23 NE-cast off Intake Note: Samantha is a 78 year old right hand dominant female who presents today for a post op appointment wound check s/p right distal radius ORIF 09/15/23 NE. Patient reports that she has been doing well, she has not needed to take her medication. Allergies oxaprozin [Daypro] Allergy (Unknown, Verified 09/28/23 13:35) Rash alendronate sodium Allergy (Verified 09/28/23 13:35) Unknown amlodipine Allergy (Verified 09/28/23 13:35) Swelling amoxicillin Allergy (Verified 09/28/23 13:35) Diarrhea azithromycin Allergy (Verified 09/28/23 13:35) Rash carvedilol Allergy (Verified 09/28/23 13:35) Joint Pain hydrochlorothiazide Allergy (Verified 09/28/23 13:35) Unknown labetalol Allergy (Verified 09/28/23 13:35) Swelling nitrofurantoin Allergy (Verified 09/28/23 13:35) Gastrointestinal Upset Sulfa (Sulfonamide Antibiotics) Allergy (Verified 09/28/23 13:35) Gastrointestinal Upset sulfamethoxazole [From Sulfamethoxazole-Trimethoprim] Allergy (Verified 09/28/23 13:35) Gastrointestinal Upset trimethoprim [From Sulfamethoxazole-Trimethoprim] Allergy (Verified 09/28/23 13:35) Gastrointestinal Upset Caltrate 600 Allergy (Unknown, Uncoded 09/28/23 13:35) Unknown Flonase Allergy (Unknown, Uncoded 09/28/23 13:35) Unknown HPI PO Rt distal radius ORIF 09/15/23 NE-cast off HPI Details 78-year-old right hand dominant female anisha robles returns to the office today for post-op right distal radius ORIF, 09/15/[address] Gan. She states she has no pain and is doing well overall. She also c/o swelling in her wrist at night and in the morning. She has not been having the need to take her medication. She has no other concerns today. [facility] Medical History (Updated 09/29/23 @ 20:25 by Kelly Craig PA-C) Osteopenia Hypothyroid HLD (hyperlipidemia) HTN (hypertension) Rheumatoid arthritis Surgical History S/P total left hip arthroplasty S/P total right hip arthroplasty Social History Patient Tobacco Use Status: Never used Tobacco Review of Systems Const All systems reviewed & are unremarkable except as noted in HPI and below Physical Exam Extrem Other: Right wrist: Incision clean, dry and intact. Swelling is resolving. She has some bruising over the surgical site but she has full sensation and pulses are present. Office Procedures Casting/Splints 12861-Lbpl/Wrist Cast Application Procedure code (CPT) selection complete Results Reviewed Results Reviewed: Xrays were obtained in the office today and personally reviewed by me of the right wrist show intact hardware with stable fracture alignment Assessment & Plan Assessment & Plan (1) Distal radius fracture, right: Code(s): S52.501A - Unspecified fracture of the lower end of right radius, initial encounter for closed fracture Qualifiers: Encounter type: subsequent encounter Fracture morphology: other fracture Fracture type: closed Fracture healing: with routine healing Qualified Code(s): S52.591D - Other fractures of lower end of right radius, subsequent encounter for closed fracture with routine healing (2) Fracture of right ulnar styloid: Code(s): S52.611A - Displaced fracture of right ulna styloid process, initial encounter for closed fracture Qualifiers: Encounter type: initial encounter Fracture alignment: displaced Fracture type: closed Qualified Code(s): S52.611A - Displaced fracture of right ulna styloid process, initial encounter for closed fracture (3) Osteoarthritis of right wrist: Code(s): M19.031 - Primary osteoarthritis, right wrist Qualifiers: Osteoarthritis type: unspecified Qualified Code(s): M19.031 - Primary osteoarthritis, right wrist Plan She was placed in a short arm cast which she will wear for another 2 weeks until there is good evidence of healing on x-rays. She may benefit from an Velcro wrist splint at that time which she would remove only for hygiene purposes and gentle ROM. I would like to see her back in 2 weeks for cast off and new x-rays, sooner if needed. Orders: Orders XR wrist RT min 3V 09/28/23 M25.531 - Pain in right wrist Patient Instructions: Scribed for Tiburcio-Kendal Craig PA-C, by Abisai Valencia medical chemist, on 09/28/2023 at 1:30 PM Kelly LYNNE PA-C, have personally reviewed and agree with the information entered by the scribe. Coding Level of Care Code Global (02454) Diagnoses Other closed fracture of distal end of right radius with routine healing, subsequent encounter S52.591D Encounter type: subsequent encounter Fracture morphology: other fracture Fracture type: closed Fracture healing: with routine healing Closed displaced fracture of styloid process of right ulna, initial encounter S52.611A Encounter type: initial encounter Fracture alignment: displaced Fracture type: closed Osteoarthritis of right wrist, unspecified osteoarthritis type M19.031 Osteoarthritis type: unspecified CPT Codes Casting - CPT: 42363-Yipu/Wrist Cast Application ([id number])
== END 2023-09-28 14:28 | disposition home or self-care (01) ==
PROVIDERS: PCP Internal Medicine; Visit Provider Physician Assistant
DX: S52.591D Other fractures of lower end of right radius, subsequent encounter for closed fracture with routine healing (principal); S52.611A Displaced fracture of right ulna styloid process, initial encounter for closed fracture; M19.031 Primary osteoarthritis, right wrist
CPT/HCPCS: 29085; 99024

== ENCOUNTER 2023-10-15 10:06 | Outpatient (AMB) | payer MEDICARE, SELFPAY ==
--- NOTE | 2023-10-15 10:30 | A.OFFVIS_ITS ---
Intake Intake Visit Reasons: PO Rt distal radius ORIF 09/15/23 NE-cast off Intake Note: Samantha is a 78 year old right hand dominant female who presents today for a post op appointment wound check s/p right distal radius ORIF 09/15/23 NE. Patient reports having a lot of soreness. She states that her skin feels tight. Allergies oxaprozin [Daypro] Allergy (Unknown, Verified 10/15/23 10:32) Rash alendronate sodium Allergy (Verified 10/15/23 10:32) Unknown amlodipine Allergy (Verified 10/15/23 10:32) Swelling amoxicillin Allergy (Verified 10/15/23 10:32) Diarrhea azithromycin Allergy (Verified 10/15/23 10:32) Rash carvedilol Allergy (Verified 10/15/23 10:32) Joint Pain hydrochlorothiazide Allergy (Verified 10/15/23 10:32) Unknown labetalol Allergy (Verified 10/15/23 10:32) Swelling nitrofurantoin Allergy (Verified 10/15/23 10:32) Gastrointestinal Upset Sulfa (Sulfonamide Antibiotics) Allergy (Verified 10/15/23 10:32) Gastrointestinal Upset sulfamethoxazole [From Sulfamethoxazole-Trimethoprim] Allergy (Verified 10/15/23 10:32) Gastrointestinal Upset trimethoprim [From Sulfamethoxazole-Trimethoprim] Allergy (Verified 10/15/23 10:32) Gastrointestinal Upset Caltrate 600 Allergy (Unknown, Uncoded 09/28/23 13:35) Unknown Flonase Allergy (Unknown, Uncoded 09/28/23 13:35) Unknown HPI PO Rt distal radius ORIF 09/15/23 NE-cast off HPI0 Details 78-year-old right hand dominant female anisha robles presents in the office today 1 month status post right wrist distal radius fracture ORIF, which was performed on 09/15/[address] Gan. I last saw the patient in the office on 09/21/2023 where she was placed into a cast. She was demonstrated exercises to work on to get fingertips to palm. While in the office today the patient reports a lot of soreness. She states her skin feel tight. [facility] Medical History (Updated 09/29/23 @ 20:25 by Kelly Craig PA-C) Osteopenia Hypothyroid HLD (hyperlipidemia) HTN (hypertension) Rheumatoid arthritis Surgical History S/P total left hip arthroplasty S/P total right hip arthroplasty Social History Patient Tobacco Use Status: Never used Tobacco Review of Systems Const All systems reviewed & are unremarkable except as noted in HPI and below Physical Exam Const General: cooperative, healthy appearing and no acute distress Resp Effort & Inspection: normal respiratory effort and able to speak in complete sentences Cardio Rate: regular rate Peripheral pulses: Peripheral pulses 2+ throughout GI Palpation (GI): Soft to palpation Skin Lesions: no lesions Rashes: no rashes Extrem Other: Right wrist: Distal radius incision site is clean, dry, and intact. Steri- stripes still intact. No surrounding erythema or drainage. Dry skin throughout the area that was in the cast. No open wounds. No signs of infection. Able to make a closed fist. Able to extend all digits fully. Sensation intact. Capillary refill is brisk. Radial pulse intact. Office Procedures Casting/Splints 98802-Ijci/Wrist Cast Application Procedure code (CPT) selection complete Assessment & Plan Assessment & Plan (1) Distal radius fracture, right: Code(s): S52.501A - Unspecified fracture of the lower end of right radius, initial encounter for closed fracture Qualifiers: Encounter type: subsequent encounter Fracture healing: with routine healing Fracture morphology: other fracture Fracture type: closed Qualified Code(s): S52.591D - Other fractures of lower end of right radius, subsequent encounter for closed fracture with routine healing (2) Fracture of right ulnar styloid: Code(s): S52.611A - Displaced fracture of right ulna styloid process, initial encounter for closed fracture Qualifiers: Encounter type: initial encounter Fracture alignment: displaced Fracture type: closed Qualified Code(s): S52.611A - Displaced fracture of right ulna styloid process, initial encounter for closed fracture (3) Osteoarthritis of right wrist: Code(s): M19.031 - Primary osteoarthritis, right wrist Qualifiers: Osteoarthritis type: unspecified Qualified Code(s): M19.031 - Primary osteoarthritis, right wrist Plan Ms. Lr is a 78-year-old right hand dominant female who presents in the office today 1 month status post right wrist distal radius fracture ORIF, which was performed on 09/15/[address] Gan. I last saw the patient in the office on 09/21/2023 where she was placed into a cast. She was demonstrated exercises to work on to get fingertips to palm. While in the office today the patient rep orts a lot of soreness. She states her skin feel tight. The patient was placed back into a short arm cast, custom made, for an additional 2 weeks to support the fracture site. Follow up will be in 2 weeks with repeat x-rays out of the cast, or sooner if needed. X-rays of the right wrist which were obtained while in the office today and were reviewed by me, Christina Lozoya PA-C, revealed intact orthopedic hardware with minimal bone callus. Orders: Orders XR wrist LT min 3V Today M25.539 - Pain in unspecified wrist Patient Instructions: Scribed for Christina Lozoya PA-C by Yakelin Guido diagnostic medical sonographer, on 10/12/2023 at 10:09 am, EST. Coding Level of Care Code Global (61318) Diagnoses Other closed fracture of distal end of right radius with routine healing, subsequent encounter S52.591D Encounter type: subsequent encounter Fracture healing: with routine healing Fracture morphology: other fracture Fracture type: closed Closed displaced fracture of styloid process of right ulna, initial encounter S52.611A Encounter type: initial encounter Fracture alignment: displaced Fracture type: closed Osteoarthritis of right wrist, unspecified osteoarthritis type M19.031 Osteoarthritis type: unspecified CPT Codes Casting - CPT: 07155-Hbyn/Wrist Cast Application ([id number])
== END 2023-10-15 11:27 | disposition home or self-care (01) ==
PROVIDERS: PCP Internal Medicine; Visit Provider Physician Assistant
DX: S52.591D Other fractures of lower end of right radius, subsequent encounter for closed fracture with routine healing (principal); S52.611A Displaced fracture of right ulna styloid process, initial encounter for closed fracture; M19.031 Primary osteoarthritis, right wrist
CPT/HCPCS: 29085; 99024

== ENCOUNTER 2023-10-15 10:22 | Outpatient (REF) | payer MEDICARE, SELFPAY ==
--- NOTE | ~2023-10-15 | XR_ITS ---
EXAMINATION: XR WRIST, LEFT CLINICAL INFORMATION: Wrist pain COMPARISON: 09/28/2023 TECHNIQUE: PA, lateral, and oblique views of the left wrist. FINDINGS: Diffuse demineralization and degenerative changes. Side plate and screws traverse mildly displaced distal radial fracture without signs of loosening. The distal radial fracture site is less conspicuous with mild increasing sclerosis. Mildly displaced ulnar styloid fracture is less evident. Alignment is maintained. Soft tissue swelling has improved. XR/XR wrist LT min 3V IMPRESSION: Healing distal right radial and ulnar fractures.
== END 2023-10-15 10:23 | disposition home or self-care (01) ==
LOC: HO.HOSX 10:22
PROVIDERS: Visit Provider Physician Assistant
DX: S52.591D Other fractures of lower end of right radius, subsequent encounter for closed fracture with routine healing (principal); S52.611D Displaced fracture of right ulna styloid process, subsequent encounter for closed fracture with routine healing
CPT/HCPCS: 29085; 73110; 99212

== ENCOUNTER 2023-10-29 10:18 | Outpatient (REF) | payer MEDICARE, SELFPAY ==
--- NOTE | ~2023-10-29 | XR_ITS ---
EXAMINATION: XR WRIST, RIGHT CLINICAL INFORMATION: Right wrist fracture, taken off cast COMPARISON: Right wrist x-rays on 10/15/2023 TECHNIQUE: PA, lateral, and oblique views of the right wrist. FINDINGS: BONES: Bony structures are diffusely osteopenic. Oblique fracture distal right radius, fixation with volar plate and cortical screws is seen. Alignment is close to anatomical. JOINTS: Alignment of joints is normal. SOFT TISSUE: Soft tissue is normal. No radiopaque foreign body or abnormal air collection is seen. XR/XR wrist RT min 3V IMPRESSION: 1. Unchanged Anatomic alignment of distal right radial fracture status post ORIF. No hardware failure or loosening is seen. 2. Interval healing of the right ulna styloid process fracture.
== END 2023-10-29 10:19 | disposition home or self-care (01) ==
LOC: HO.HOSX 10:18
PROVIDERS: Visit Provider Physician Assistant
DX: S52.591D Other fractures of lower end of right radius, subsequent encounter for closed fracture with routine healing (principal); S52.611D Displaced fracture of right ulna styloid process, subsequent encounter for closed fracture with routine healing; M19.031 Primary osteoarthritis, right wrist; X58.XXXD Exposure to other specified factors, subsequent encounter; Z98.890 Other specified postprocedural states
CPT/HCPCS: 73110; 99212

== ENCOUNTER 2023-10-29 11:19 | Outpatient (AMB) | payer MEDICARE, SELFPAY ==
--- NOTE | 2023-10-29 11:32 | A.OFFVIS_ITS ---
Intake Intake Visit Reasons: PO Rt distal radius ORIF 09/15/23 NE-w/XR/cast off Intake Note: Samantha is a 78 year old right hand dominant female who presents today for a post op appointment wound check s/p right distal radius ORIF 09/15/23 NE. Patient reports her skin feels a bit tight. Allergies oxaprozin [Daypro] Allergy (Unknown, Verified 10/29/23 11:33) Rash alendronate sodium Allergy (Verified 10/29/23 11:33) Unknown amlodipine Allergy (Verified 10/29/23 11:33) Swelling amoxicillin Allergy (Verified 10/29/23 11:33) Diarrhea azithromycin Allergy (Verified 10/29/23 11:33) Rash carvedilol Allergy (Verified 10/29/23 11:33) Joint Pain hydrochlorothiazide Allergy (Verified 10/29/23 11:33) Unknown labetalol Allergy (Verified 10/29/23 11:33) Swelling nitrofurantoin Allergy (Verified 10/29/23 11:33) Gastrointestinal Upset Sulfa (Sulfonamide Antibiotics) Allergy (Verified 10/29/23 11:33) Gastrointestinal Upset sulfamethoxazole [From Sulfamethoxazole-Trimethoprim] Allergy (Verified 10/29/23 11:33) Gastrointestinal Upset trimethoprim [From Sulfamethoxazole-Trimethoprim] Allergy (Verified 10/29/23 11:33) Gastrointestinal Upset Caltrate 600 Allergy (Unknown, Uncoded 09/28/23 13:35) Unknown Flonase Allergy (Unknown, Uncoded 09/28/23 13:35) Unknown HPI PO Rt distal radius ORIF 09/15/23 NE-w/XR/cast off HPI Details 78-year-old right hand dominant female anisha robles presents in the office today 1 month status post right wrist distal radius fracture ORIF, which was performed on 09/15/[address] Gan. I last saw the patient while in the office on 10/15/2023 when she was placed back into a short leg cast. She reports weakness in the right wrist. The patient reports dryness of her skin and states she feels tightness. [facility], [facility] Medical History (Updated 09/29/23 @ 20:25 by Kelly Craig PA-C) Osteopenia Hypothyroid HLD (hyperlipidemia) HTN (hypertension) Rheumatoid arthritis Surgical History S/P total left hip arthroplasty S/P total right hip arthroplasty Social History Patient Tobacco Use Status: Never used Tobacco Review of Systems Const All systems reviewed & are unremarkable except as noted in HPI and below Physical Exam Const General: cooperative, healthy appearing and no acute distress Resp Effort & Inspection: normal respiratory effort and able to speak in complete sentences Cardio Rate: regular rate Peripheral pulses: Peripheral pulses 2+ throughout GI Palpation (GI): Soft to palpation Skin Lesions: no lesions Rashes: no rashes Extrem Other: Right wrist: Incision site is clean, dry, and intact. No surrounding erythema or drainage. No signs of infection. Able to flex and extend at the wrist, but is limited due to stiffness and mild pain. Able to make a closed fist. Sensation intact. Capillary refill is brisk. Radial pulse intact. Assessment & Plan Assessment & Plan (1) Distal radius fracture, right: Code(s): S52.501A - Unspecified fracture of the lower end of right radius, initial encounter for closed fracture Qualifiers: Encounter type: subsequent encounter Fracture healing: with routine healing Fracture morphology: other fracture Fracture type: closed Qualified Code(s): S52.591D - Other fractures of lower end of right radius, subsequent encounter for closed fracture with routine healing (2) Fracture of right ulnar styloid: Code(s): S52.611A - Displaced fracture of right ulna styloid process, initial encounter for closed fracture Qualifiers: Encounter type: initial encounter Fracture alignment: displaced Fracture type: closed Qualified Code(s): S52.611A - Displaced fracture of right ulna styloid process, initial encounter for closed fracture (3) Osteoarthritis of right wrist: Code(s): M19.031 - Primary osteoarthritis, right wrist Qualifiers: Osteoarthritis type: unspecified Qualified Code(s): M19.031 - Primary osteoarthritis, right wrist Plan Ms. Lr is a 78-year-old right hand dominant female who presents in the office today 1 month status post right wrist distal radius fracture ORIF, which was performed on 09/15/[address] Gan. I last saw the patient while in the office on 10/15/2023 when she was placed back into a short leg cast. She reports weakness in the right wrist. The patient reports dryness of her skin and states she feels tightness. The patient will be placed in a velcro wrist splint, off the shelf. She can take it off for hand washing and hygiene. A referral was placed for occupational therapy. I recommend for the patient to attend occupational therapy 2 times a week for 4-6 weeks. The patient expressed an issue with attending this often due to a concern for lacking transportation. Her current means of transportation is her daughter. I discuss with the patient that the hospital has partnered with [employer] and they would be able to bring her back and forth to appointment. She would like to defer stating she does not want someone picking her up. For the dry skin the patient was told she is able to apply lotion but should avoid the incision site. Follow up will be in 5 weeks, or sooner if needed. X-rays of the right wrist which were obtained while in the office today and were reviewed by me, Christina Lozoya PA-C, revealed intact orthopedic hardware with routine healing. Orders: Orders XR wrist RT min 3V Today M25.539 - Pain in unspecified wrist OT Evaluation and Treatment Today M19.031 - Primary osteoarthritis, right wrist, S52.501A - Unspecified fracture of the lower end of right radius, initial encounter for closed fracture, S52.611A - Displaced fracture of right ulna styloid process, initial encounter for closed fracture Patient Instructions: Scribed for Christina Lozoya PA-C by Yakelin Guido director medical science, on 10/29/2023 at 11:30 am, EST. Coding Level of Care Code Global (71807) Diagnoses Other closed fracture of distal end of right radius with routine healing, subsequent encounter S52.591D Encounter type: subsequent encounter Fracture healing: with routine healing Fracture morphology: other fracture Fracture type: closed Closed displaced fracture of styloid process of right ulna, initial encounter S52.611A Encounter type: initial encounter Fracture alignment: displaced Fracture type: closed Osteoarthritis of right wrist, unspecified osteoarthritis type M19.031 Osteoarthritis type: unspecified
== END 2023-10-29 12:32 | disposition home or self-care (01) ==
PROVIDERS: PCP Internal Medicine; Visit Provider Physician Assistant
DX: S52.591D Other fractures of lower end of right radius, subsequent encounter for closed fracture with routine healing (principal); S52.611A Displaced fracture of right ulna styloid process, initial encounter for closed fracture; M19.031 Primary osteoarthritis, right wrist
CPT/HCPCS: 99024

== ENCOUNTER 2023-12-07 12:21 | Outpatient (AMB) | payer MEDICARE, SELFPAY ==
--- NOTE | 2023-12-07 12:32 | MHC.OFFVIS ---
Intake Intake Visit Reasons: PO Rt distal radius ORIF 09/15/23 NE Intake Note: Samantha is a 78 year old right hand dominant female who presents today for a post op appointment wound check s/p right distal radius ORIF 09/15/23 NE.X rays were updated. Patient reports that OT is going well, yet is feeling a bit sore. Pain is a bit worse when she is done doing her exercises. Allergies oxaprozin [Daypro] Allergy (Unknown, Verified 10/29/23 11:33) Rash alendronate sodium Allergy (Verified 10/29/23 11:33) Unknown amlodipine Allergy (Verified 10/29/23 11:33) Swelling amoxicillin Allergy (Verified 10/29/23 11:33) Diarrhea azithromycin Allergy (Verified 10/29/23 11:33) Rash carvedilol Allergy (Verified 10/29/23 11:33) Joint Pain hydrochlorothiazide Allergy (Verified 10/29/23 11:33) Unknown labetalol Allergy (Verified 10/29/23 11:33) Swelling nitrofurantoin Allergy (Verified 10/29/23 11:33) Gastrointestinal Upset Sulfa (Sulfonamide Antibiotics) Allergy (Verified 10/29/23 11:33) Gastrointestinal Upset sulfamethoxazole [From Sulfamethoxazole-Trimethoprim] Allergy (Verified 10/29/23 11:33) Gastrointestinal Upset trimethoprim [From Sulfamethoxazole-Trimethoprim] Allergy (Verified 10/29/23 11:33) Gastrointestinal Upset Caltrate 600 Allergy (Unknown, Uncoded 09/28/23 13:35) Unknown Flonase Allergy (Unknown, Uncoded 09/28/23 13:35) Unknown HPI PO Rt distal radius ORIF 09/15/23 NE HPI Details 78-year-old right hand dominant female who presents in the office today 3 month status post right wrist distal radius fracture ORIF, which was performed on 09/15/[address] Gan. I last saw the patient in the office on 10/29/2023 when she was referred to occupational therapy. While in the office today the patient reports occupational therapy went well, but she does have a bit of soreness. She states her pain is a bit worse when she is doing her exercises. [facility] Medical History (Updated 09/29/23 @ 20:25 by Kelly Craig PA-C) Osteopenia Hypothyroid HLD (hyperlipidemia) HTN (hypertension) Rheumatoid arthritis Surgical History S/P total left hip arthroplasty S/P total right hip arthroplasty Social History Patient Tobacco Use Status: Never used Tobacco Review of Systems Const All systems reviewed & are unremarkable except as noted in HPI and below Physical Exam Const General: cooperative, healthy appearing and no acute distress Resp Effort & Inspection: normal respiratory effort and able to speak in complete sentences Cardio Rate: regular rate Peripheral pulses: Peripheral pulses 2+ throughout GI Palpation (GI): Soft to palpation Skin Lesions: no lesions Rashes: no rashes Extrem Other: Right wrist: Incision site is healed. No surrounding erythema or drainage. No signs of infection. Able to flex and extend at the wrist, slightl stiffness. Able to make a closed fist. Sensation intact. Capillary refill is brisk. Radial pulse intact. Assessment & Plan Assessment & Plan (1) Distal radius fracture, right: Code(s): S52.501A - Unspecified fracture of the lower end of right radius, initial encounter for closed fracture Qualifiers: Encounter type: subsequent encounter Fracture healing: with routine healing Fracture morphology: other fracture Fracture type: closed Qualified Code(s): S52.591D - Other fractures of lower end of right radius, subsequent encounter for closed fracture with routine healing (2) Fracture of right ulnar styloid: Code(s): S52.611A - Displaced fracture of right ulna styloid process, initial encounter for closed fracture Qualifiers: Encounter type: initial encounter Fracture alignment: displaced Fracture type: closed Qualified Code(s): S52.611A - Displaced fracture of right ulna styloid process, initial encounter for closed fracture (3) Osteoarthritis of right wrist: Code(s): M19.031 - Primary osteoarthritis, right wrist Qualifiers: Osteoarthritis type: unspecified Qualified Code(s): M19.031 - Primary osteoarthritis, right wrist Plan Ms. Lr is a 78-year-old right hand dominant female who presents in the office today 3 month status post right wrist distal radius fracture ORIF, which was performed on 09/15/[address] Gan. I last saw the patient in the office on 10/29/2023 when she was referred to occupational therapy. While in the office today the patient reports occupational therapy went well, but she does have a bit of soreness. She states her pain is a bit worse when she is doing her exercises. I asked the patient is her ROM is similar or at the same level that it was prior to her wrist fracture. She reports her ROM has actually improved slightly. She is attending occupational therapy and was given a home exercise program to work on. I would encourage her to attend one to two more sessions with further instructions on the home exercise program. She may discontinue the use of the sling as she has met her goals. Follow up will be PRN, or sooner if needed. X-rays of the right wrist which were obtained while in the office today and were reviewed by me, Christina Lozoya PA-C, revealed a healed distal radius fracture with intact orthopedic hardware. Current pain regiment: --Oxycodone-acetaminophen 5-325 PO Q4-6H PRN (09/15/2023) Orders: Orders XR wrist RT min 3V 12/07/23 M25.539 - Pain in unspecified wrist Patient Instructions: Scribed by Yakelin Guido medical staff assistant, for Christina Lozoya PA-C on 12/07/2023 at 12:29 pm, EST. Coding Level of Care Code Global (76913) Diagnoses Other closed fracture of distal end of right radius with routine healing, subsequent encounter S52.591D Encounter type: subsequent encounter Fracture healing: with routine healing Fracture morphology: other fracture Fracture type: closed Closed displaced fracture of styloid process of right ulna, initial encounter S52.611A Encounter type: initial encounter Fracture alignment: displaced Fracture type: closed Osteoarthritis of right wrist, unspecified osteoarthritis type M19.031 Osteoarthritis type: unspecified
== END 2023-12-07 12:53 | disposition home or self-care (01) ==
PROVIDERS: PCP Internal Medicine; Visit Provider Physician Assistant
DX: S52.591D Other fractures of lower end of right radius, subsequent encounter for closed fracture with routine healing (principal); S52.611A Displaced fracture of right ulna styloid process, initial encounter for closed fracture; M19.031 Primary osteoarthritis, right wrist
CPT/HCPCS: 99024

== ENCOUNTER 2023-12-07 17:03 | Outpatient (REF) | payer MEDICARE, SELFPAY ==
--- NOTE | ~2023-12-07 | XR_ITS ---
EXAMINATION: XR WRIST, RIGHT CLINICAL INFORMATION: Pain. COMPARISON: Radiographs dated 10/29/2023. TECHNIQUE: PA, lateral, and oblique views of the right wrist. FINDINGS: There is bony demineralization. An intact orthopedic fixator plate and fixator screws are applied to the distal right radius. There is stable alignment of an oblique fracture of the distal right radial metaphysis. No hardware failure or loosening is seen. The proximal and distal carpal rows are intact. There is mild osteoarthritic change of the first carpometacarpal joint. Marked osteoarthritic change is seen of the second and third metacarpophalangeal joints and the fifth proximal interphalangeal joint. No focal soft tissue swelling, gas or foreign body is seen. XR/XR wrist RT min 3V IMPRESSION: There is stable alignment of a fracture of the distal right radial metaphysis status-post ORIF. No hardware failure or loosening is seen.
== END 2023-12-07 17:04 | disposition home or self-care (01) ==
LOC: HO.HOSX 17:03
PROVIDERS: Visit Provider Physician Assistant
DX: S52.611D Displaced fracture of right ulna styloid process, subsequent encounter for closed fracture with routine healing (principal)
CPT/HCPCS: 73110; 99212

== ENCOUNTER 2023-12-10 15:30 | Outpatient (RCR) | payer MEDICARE, SELFPAY ==
--- NOTE | 2023-11-23 12:34 | MHC.OT.OEV ---
[address] [phone] F: [phone] Occupational Therapy Evaluation Patient Name: Samantha Lr Diagnosis: (R) distal radial fracture ORIF Date of Onset: 09/04/23 Date of Surgery: 09/15/23 Attending Provider: Christina Lozoya Prescribed Treatment: MD Follow Up Appointment: History of Current Condition: Patient is a 78 year old right handed female who sustained a fall when attempting to clean out a kitchen cabinet while on a step stool resulting in a right distal radial fx with ORIF (09/15/2023). Significant Medical History: Precautions/Contraindications: Patient Goals: To be (I) to drive Hand Dominance: Right Observations: QuickDASH Score: 56.8 Prior Level of Function and Occupation Self Care, Employment, Leisure: (I)ADLs/ IADLs Lives with family. Daughter and boyfriend are supportive Living Situation, Family and/or Social Support: Strong family support Current Level of Function and Occupation Self Care, Employment, Leisure: Min (A) upper body self care task; daughter was helping but patient is able complete hair washing and styling hair Mod (A) IADLs; daughter and boyfriend assist Sleep: Pain is not waking patient at night. Driving: max (A) Vision: Balance: Pain Assessment Pain Score: 6 Pain Scale Used: Numeric (0 - 10) Pain Location and Description: 0/10 at rest 6/10 the pain flucates Aggravating Factors: Movement Alleviating Factors: Tylenol Skin and Soft Tissue Assessment Skin and Soft Tissue: Other Comments: Bruising was observed on the volar side of wrist and down the forearm, and red yanelis on forearm was present. Nerve assessment Ulnar Nerve: Median Nerve: Radial Nerve: Comments: Sensory Assessment Temperature: Light Touch: Proprioception: Vibration: Comments: Edema Assessment Upper Extremity: Lower Extremity: Comments: Dexterity Assessment Dexterity: Comments: Finger opposition Special Tests Comments: AROM(PROM) Strength Cervical Cervical Flexion: Cervical Extension: Cervical Lateral Flexion: Cervical Rotation: Comments: Shoulder Flexion: WFL Extension: WFL Abduction: WFL Internal Rotation: External Rotation: Comments: Flexion: WFL Extension:WFL Abduction: WFL Internal Rotation: External Rotation: WFL Comments: Elbow Flexion: WFL Extension: WFL Pronation: Supination: Comments: Flexion: WFL Extension: WFL Pronation: Supination: Comments: Wrist Flexion: 45* Extension: 40* Ulnar Deviation: 20* Radial Deviation: 23* Comments: Flexion: (R) not tested Extension: (R) not tested Ulnar Deviation: (R) not tested Radial Deviation: (R) not tested Comments: Thumb Thumb CMC Flexion: Thumb MCP Flexion: Thumb IP Flexion: Radial Abduction: Palmar Abduction: [place] ([place] 0-10): Comments: Digits Index MCP: PIP: DIP: Long MCP: PIP: DIP: Ring MCP: PIP: DIP: Small MCP: PIP: DIP: Comments: Demonstrated the ability to make a composite fist. Gross Grasp: (R)24.7lbs., (L)35.3lbs. Lateral Pinch: Two-Point Pinch: Three-Jaw Bull: Comments: Patient Education Primary Language: Barbadian Learning Consultant Required: No Current Knowledge: Teaching Method: Education Needs Identified on Evaluation: How did patient/family demonstrate learning? Barriers to Learning: Readiness for Learning: Who was educated? Comments: Plan of Care Assessment: Patient is a 78 year old female who sustained a fall while attempting to clean out her kitchen cabinet while on a step stool. She stated that she miss-stepped onto the stool which is what caused the fall resulting in a (R)distal radial fx ORIF. She also stated she is motivated to participated in therapy and wants to be (I) with daily tasks. Patient denied numbness/ tingling in upper extremity. Reported pain as 0/10 at rest and 6/10 during movement. Patient's (R) wrist ROM measurements are as follows: flexion 45*, extension 40*, radial deviation 23*, ulnar deviation 20. She demonstrated the ability to make composite fist to the 1st palmar crease. Patient's pig casting machine operator strength is 24.71lbs. (R) 35.3lbs. (L) which is under for patient's age and gender. Quick DASH= 56.8 indicating patient's perceived impairment of her upper extremity during self care tasks. Based on patient's initial evaluation patient's current level of function is min (A) ADLs, mod (A) IADLs as patient presents with impaired strength, impaired ROM, impaired functional activity tolerance as patient reports 6/10 pain during movement and impaired performance during functional tasks. Due to the documented impairments it is recommended that patient receive skilled OT in order for patient to achieve her PLOF of (I) during self care tasks. Thank you for your referral. STG Duration: 2 weeks Short Term Goals: Patient will increase (R) wrist flexion by 10* Patient will increase (R) wrist extension by 10* Patient will increase (R) wrist ulnar deviation by 5* Patient will report decreased pain of 4/10 pain in (R) wrist Patient will be (I) with brace weaning schedule Patient will be (I) with edema management techniques LTG Duration: 4 weeks [employer]ductor Packages Leak Tester Goals: Patient will have full ROM in (R) wrist Patient will report 0/10 pain in (R) wrist Patient will increase (R) pig casting machine operator strength by 10lbs. Patient will be (I) with HEP Frequency and Duration: The patient will be seen 2x a week for 4 weeks Treatment Plan: Therapeutic Exercise Therapeutic Activity Home Exercise Program Splinting Patient Education Edema Control ADL Training Fluidotherapy MHP Cold Packs Kinesiotaping OT eval and treat Electronically Signed By: Renetta Waggoner OTR/L,CLT Reviewed/agree with student documentation: Therapist: Please sign and return to therapist, Thank you for your referral.
--- NOTE | 2023-12-03 16:19 | MHC.OT.OP ---
[address] [phone] F: [phone] Occupational Therapy Progress Note Patient Name: Samantha Lr Diagnosis: (R) distal radial fracture ORIF Date of Surgery: 09/15/23 Date of Evaluation: 11/19/23 Treatments to Date: 3 Cancellations to Date: No Shows to Date: Subjective: I think the yellow band is causing me pain. Pain Score: 0 Pain Location: (R) wrist Objective Measures: Status: Progressing Assessment: Patient was seen for initial OT evaluation on 11/19/2023 and has had 3 visits. Patient has been working on increasing wrist ROM and gentle strengthening. She demonstrates deconditioning of the wrist, OT will slowly increase tolerance for strength. She is compliant with her HEP and is motivated to participate in therapy. Short Term Goals: Patient will increase (R) wrist flexion by 10* Patient will increase (R) wrist extension by 10* Patient will increase (R) wrist ulnar deviation by 5* Patient will report decreased pain of 4/10 pain in (R) wrist Patient will be (I) with brace weaning schedule Patient will be (I) with edema management techniques Correction Goals: Patient will have full ROM in (R) wrist Patient will report 0/10 pain in (R) wrist Patient will increase (R) project manager/team coach strength by 10lbs. Patient will be (I) with HEP Frequency and Duration: The patient will be seen 2x a week for 4 weeks Treatment Plan: Therapeutic Exercise Therapeutic Activity Home Exercise Program Splinting Patient Education Edema Control ADL Training Fluidotherapy MHP Cold Packs Kinesiotaping OT eval and treat Electronically Signed By: CHRIS Dobbs/Gary,CLT Reviewed/agree with student documentation: Therapist:
--- NOTE | 2023-12-10 16:20 | MHC.OT.DC ---
[address] [phone] F: [phone] Occupational Therapy Discharge Note Patient Name: Samantha Lr Provider: Christina Lozoya Diagnosis: (R) distal radial fracture ORIF Date of Surgery: 09/15/23 Date of Evaluation: 11/19/23 Date of Discharge: 12/10/23 Treatments to Date: 4 Cancellations to Date: No Shows to Date: Discharge Status: Discharge Summary: Patient is d/c from skilled therapy as patient elected to stop. Patient is (I) with current HEP and was educated in safely advancing program as needed. Patient verbalized understanding. Should patient need to return to [facility], OT will re-evaluate and treat as appropriate. Thank you for your referral Electronically Signed By: CHRIS Dobbs/Gary, BETHANYT Reviewed/agree with student documentation: Therapist: Please Sign and return to therapist, thank you for your referral.
== END 2023-12-10 16:21 | disposition home or self-care (01) ==
LOC: HO.OT 15:30
PROVIDERS: PCP Internal Medicine; Visit Provider Physician Assistant
DX: S52.501A Unspecified fracture of the lower end of right radius, initial encounter for closed fracture (principal); S52.611A Displaced fracture of right ulna styloid process, initial encounter for closed fracture; M19.031 Primary osteoarthritis, right wrist
CPT/HCPCS: 97110; 97166; 97535

== ENCOUNTER 2024-02-16 13:53 | Outpatient (REF) | payer MEDICARE, SELFPAY ==
[2024-02-16 15:07] LABS: Anion Gap 14 (12-20); Blood Urea Nitrogen 4 mg/dL (9-16); Calcium 9.7 mg/dL (8.4-10.2); Carbon Dioxide 29 mmol/L (22-29); Chloride 91 mmol/L (96-108); Estimated Glomerular Filt Rate > 60; Glucose Random 112 mg/dL (60-115); Potassium 3.4 mmol/L (3.3-5.1); Sodium 131 mmol/L (135-145)
== END 2024-02-16 13:54 | disposition home or self-care (01) ==
LOC: HO.LAB 13:53
PROVIDERS: PCP Internal Medicine; Visit Provider Nurse Practitioner Adult Health
DX: E87.1 Hypo-osmolality and hyponatremia (principal)
CPT/HCPCS: 36415; 80048

== ENCOUNTER 2024-03-01 06:36 | Inpatient (IN) | payer MEDICARE, SELFPAY ==
[2024-03-01] VITALS (11 sets, daily range): BP systolic 133–202; BP diastolic 65–119; PULSE 97–113; RESP 16–34; TEMP 36.4–37.4; O2SAT 93–98; BMI 21.9
--- NOTE | ~2024-03-01 | CT_ITS ---
EXAMINATION: CT ANGIOGRAM OF THE CHEST WITH AND WITHOUT CONTRAST (CT PULMONARY ANGIOGRAM FOR PE) CLINICAL INFORMATION: Reason for Exam tachycardia, dyspnea COMPARISON: None available. TECHNIQUE: Prior to contrast administration, noncontrast localization images were obtained. Subsequently, multidetector volumetric imaging was performed from the thoracic inlet to below the diaphragms following the administration of 65 mL Omnipaque 350 intravenous contrast. No contrast reaction reported Sagittal, coronal, and MIP oblique sagittal reformatted images were obtained on the CT workstation, uploaded to PACS, and reviewed. This CT examination was performed using dose optimization techniques as appropriate, variously including the following: *Automated exposure control *Adjustment of mA and/or kV according to patient size (this includes techniques or standardized protocols for targeted exams where dose is matched to indication/reason for exam; i.e. extremities or head) *Use of iterative reconstruction technique Total exam dose-length product 156 mGy-cm FINDINGS: QUALITY OF STUDY/CONTRAST BOLUS: Satisfactory. PULMONARY ARTERIES: No pulmonary emboli. THORACIC AORTA: No aneurysm. LUNG: Parenchymal lymph node along the left major fissure. A few scattered micronodules. No follow-up imaging is recommended as per Fleischner Society guidelines. Minor tree-in-bud airspace opacities in the middle lobe consistent with bronchiolitis. Mild diffuse airway wall thickening. Mild centrilobular emphysema. 1.5 x 1.3 x 1.0 cm pure groundglass nodule right upper lobe series 7 image 28. PLEURA: No pleural effusion or pneumothorax. MEDIASTINUM: Normal heart size. No pericardial effusion. No hilar or mediastinal lymphadenopathy. No evidence of septal bowing or right heart strain. CORONARY ARTERY CALCIFICATION: None visualized on this study. CHEST WALL/AXILLA: No axillary or internal mammary lymphadenopathy. OSSEOUS STRUCTURES: Degenerative changes in the spine. UPPER ABDOMEN: Simple cyst in the right upper kidney. No follow-up imaging is recommended. No reflux of contrast into the hepatic veins to suggest elevated right heart pressures. CT/CT angio chest PE protocol IMPRESSION: Negative for pulmonary embolus and. Mild tree-in-bud airspace opacities in the middle lobe consistent with bronchiolitis. 1.5 x 1.3 cm groundglass nodule in the right upper lobe. 2017 Fleischner Society Recommendations for Lung Nodule(s): Follow-Up based on size (average of long- and short-axis diameters). Use most suspicious nodule for followup. Single GG lung nodule >= 6 mm: Recommend a non-contrast Chest CT at 6-12 months to confirm persistence, then additional non-contrast Chest CTs every 2 years until 5 years. These guidelines do not apply to patients younger than 35 years, immunocompromised patients, and patients with cancer. Follow up in patients with significant comorbidities as clinically warranted. For lung cancer screening, adhere to Lung-RADS guidelines. Reference: Radiology. 2017 Mc; 284(1):228-243 Emphysema and diffuse airway wall thickening consistent with chronic airways disease. VTE: negative
--- NOTE | 2024-03-01 06:44 | ECG_ITS ---
Test Reason : SOB Blood Pressure : / mmHG Vent. Rate : 094 BPM Atrial Rate : 094 BPM P-R Int : 192 ms QRS Dur : 080 ms QT Int : 346 ms P-R-T Axes : 082 -10 063 degrees QTc Int : 432 ms Normal sinus rhythm Minimal voltage criteria for LVH, may be normal variant ( Ismael product ) Septal infarct , age undetermined Abnormal ECG No previous ECGs available Referred By: Generic ED Physician Electronically Signed By:DONNELL DOWNEY
[2024-03-01 07:03] LABS: Hemoglobin 12.7 g/dl (12.0-16.0); PLT CLUMP 1; SCAN SMEAR FLAG 1
--- NOTE | 2024-03-01 07:04 | ED.SOB ---
HPI - SOB/Dyspnea General Chief Complaint: Dyspnea Stated Complaint: diff breathing for multiple days Time Seen by Provider: 03/01/24 07:01 Source: patient and family Mode of arrival: ambulatory Limitations: no limitations History of Present Illness ED Provider: BRIGIDA AGUERO Narrative: 78 yo female with PMH of HTN sick on and off since January has been on prednisone taper and doxycycline without improvement - seemed to do a little better on prednisone then got worse. Lived with a smoker as a child but otherwise has never smoked no travel no change in history. No fevers. She has no sick contacts or exposures. Reportedly just had normal CXR. She is using albuterol newly which sort of helps as well. Has been coughing up clear then yellow then nothing on and off. MD elicited complaint: shortness of breath and cough Onset (ago): week(s) (4+) Context: recent illness Timing: intermittent Severity: moderate Exacerbating factors: exertion and coughing Relieving factors: bronchodilators Associated symptoms: cough, wheezing and sputum production Treatment prior to arrival: bronchodilator and other Related Data Home Medications ?Medication ?Instructions ?Recorded ?Confirmed betamethasone dipropionate 0.05 % 1 appl topical BID PRN Rash 09/09/23 03/01/24 topical cream loratadine 10 mg tablet 10 mg PO BEDTIME 09/09/23 03/01/24 metronidazole 0.75 % topical cream 1 appl topical BID 09/09/23 03/01/24 olmesartan 40 mg tablet 40 mg PO DAILY 09/09/23 03/01/24 Lactobacillus rhamnosus GG 10 1 cap PO DAILY 03/01/24 03/01/24 billion cell capsule (Culturelle) albuterol sulfate 90 mcg/actuation 2 puff inhalation Q6H PRN wheezing 03/01/24 03/01/24 aerosol inhaler celecoxib 200 mg capsule (Celebrex) 200 mg PO BID 03/01/24 03/01/24 cholecalciferol (vitamin D3) 25 25 mcg PO DAILY 03/01/24 03/01/24 mcg (1,000 unit) tablet (Vitamin D3) clobetasol 0.05 % topical cream 1 appl topical DAILY PRN Rash 03/01/24 03/01/24 cocoa butter-zinc oxide 76 %-10 % 1 supp AL QPM 03/01/24 03/01/24 rectal suppository (Calmol-4) fluticasone propionate 50 2 spray intranasal DAILY 03/01/24 03/01/24 mcg/actuation nasal spray,suspension hydrochlorothiazide 12.5 mg tablet 6.25 mg PO SUMOWEFR 03/01/24 03/01/24 hydroxychloroquine 200 mg tablet 200 mg PO Q OTHER DAY 03/01/24 03/01/24 hydroxychloroquine 200 mg tablet 400 mg PO Q OTHER DAY 03/01/24 03/01/24 levothyroxine 112 mcg tablet 112 mcg PO SUMOTUWETHFR 03/01/24 03/01/24 Allergies Allergy/AdvReac Type Severity Reaction Status Date / Time oxaprozin [Daypro] Allergy Unknown Rash Verified 03/01/24 06:43 alendronate sodium Allergy Unknown Verified 03/01/24 06:43 amlodipine Allergy Swelling Verified 03/01/24 06:43 amoxicillin Allergy Diarrhea Verified 03/01/24 06:43 azithromycin Allergy Rash Verified 03/01/24 06:43 carvedilol Allergy Joint Pain Verified 03/01/24 06:43 hydrochlorothiazide Allergy Unknown Verified 03/01/24 06:43 labetalol Allergy Swelling Verified 03/01/24 06:43 nitrofurantoin Allergy Gastrointestinal Verified 03/01/24 06:43 Upset Sulfa (Sulfonamide Allergy Gastrointestinal Verified 03/01/24 06:43 Antibiotics) Upset sulfamethoxazole Allergy Gastrointestinal Verified 03/01/24 06:43 [From Upset Sulfamethoxazole-Trimethoprim] trimethoprim Allergy Gastrointestinal Verified 03/01/24 06:43 [From Upset Sulfamethoxazole-Trimethoprim] Caltrate 600 Allergy Unknown Unknown Uncoded 03/01/24 06:43 Flonase Allergy Unknown Unknown Uncoded 03/01/24 06:43 Review of Systems Review of Systems: Constitutional : No Fever, No Chills ENT/Mouth : No Hoarseness, No sore throat, No Rhinorrhea Eyes: No Redness, No Discharge, No Vision Changes Cardiovascular : No Chest Pain, positive SOB, positive Dyspnea on Exertion, No Edema Respiratory : positive Cough, pos Sputum, positive Wheezing, Gastrointestinal : No Nausea, No Vomiting, No Diarrhea, No abdominal Pain Genitourinary : No Dysuria, No Hematuria Musculoskeletal : No joint pain, No Myalgias Skin : No rash Neuro : No Weakness, No Numbness, No Headache Psych : No anxiety, depression All other systems reviewed and are negative [facility] Past Medical History Attestation statement: The following information was validated with the patient. Source: old records reviewed Medical History Osteopenia Hypothyroid HLD (hyperlipidemia) HTN (hypertension) Rheumatoid arthritis Surgical History S/P total left hip arthroplasty S/P total right hip arthroplasty Social History Social History Patient Tobacco Use Status: Never used Tobacco Advance Directives: No Advance Directives Information Provided: Yes Do you have a plan to hurt others: No Plan Physical Exam Vital Signs: Vital Signs: Last Vital Signs Temp 99.3 F 03/01/24 13:41 Pulse 108 H 03/01/24 13:41 Resp 16 03/01/24 13:41 BP 155/74 H 03/01/24 13:41 Pulse Ox 94 03/01/24 13:41 O2 Del Method Room Air 03/01/24 13:41 BMI result Body Mass Index 21.9 Appearance: Alert. Oriented X3. Mild acute distress. Eyes: Pupils equal, round and reactive to light. ENT: Pharynx normal. Neck: Normal inspection. Neck supple. CVS: Normal heart rate and rhythm. Pulses normal. Respiratory: Mild respiratory distress - tachypnea and retractions Breath sounds insp and exp wheezes Abdomen: Soft and non-tender. Skin: Skin warm and dry. Normal skin color. Extremities: No lower extremity edema. Neuro: Oriented X 3. No motor deficit. No sensory deficit. Medications Administered Generic Name Dose Route Start Last Admin Trade Name Freq PRN Reason Stop Dose Admin Albuterol/Ipratropium 3 ml 03/01/24 11:15 03/01/24 11:59 Albuterol/Iprat 2.5/0.5mg 3 Ml Ampul.Neb INHALE 3 ml Q4H JAYDA Administration Enoxaparin Sodium 40 mg 03/01/24 12:00 03/01/24 11:41 Enoxaparin Sodium 40 Mg/0.4 Ml Syringe SUBCUT 40 mg Q24H JAYDA Administration Guaifenesin/Codeine Phosphate 10 ml 03/01/24 11:15 03/01/24 11:41 Guaifen/Codeine Sf 200/20/10ml 10 Ml Liquid PO 10 ml Q6H JAYDA Administration Omeprazole 20 mg 03/01/24 11:06 03/01/24 11:41 Omeprazole 20 Mg Capsule. PO 20 mg DAILY@0630 JAYDA Administration Discontinued Medications Generic Name Dose Route Start Last Admin Trade Name Tabby PRN Reason Stop Dose Admin Acetaminophen 650 mg 03/01/24 09:25 03/01/24 10:06 Acetaminophen 325 Mg Tablet PO 03/01/24 09:26 650 mg ONCE ONE Administration Albuterol Sulfate 2.5 mg 03/01/24 08:02 03/01/24 08:08 Albuterol Sulfate (0.083%) 2.5 Mg/3 Ml Vial.Neb INHALE 03/01/24 08:03 2.5 mg ONCE ONE Administration Albuterol Sulfate 2.5 mg/ 0 mg 03/01/24 07:43 03/01/24 07:54 Albuterol/Ipratropium 3 ml INHALE 03/01/24 07:44 1 dose ONCE ONE Administration Sodium Chloride 1,000 mls @ 80 mls/hr 03/01/24 08:00 03/01/24 09:16 Ns IVCONT 80 mls/hr .[id number] JAYDA Administration Ceftriaxone Sodium 1 gm/ 50 mls @ 100 mls/hr 03/01/24 09:44 03/01/24 11:05 Sodium Chloride IV 03/01/24 10:13 Infused ONCE ONE Infusion Iohexol 100 ml 03/01/24 11:12 03/01/24 11:12 Iohexol 350 Mg/Ml 100 Ml Infus..Btl IV 03/01/24 11:13 65 ml ONCE ONE Administration Methylprednisolone Sodium Succinate 60 mg 03/01/24 07:15 03/01/24 08:11 Methylprednisolone Sod Succ 125 Mg/2 Ml Vial IVPUSH 03/01/24 07:16 60 mg ONCE ONE Administration Medical Decision Making Medical Decision Making MDM Narrative: 78 yo female with PMH of HTN sick on and off since January here with c/o URI and dyspnea on and off for 4 weeks at this time given the chronicity of her complaints will obtain labs, CTA for mass/lung parenchyma evaluation, nebs, IV steroids, EKG - patient adamantly denies any known prior reactive airway disease. Differential Diagnosis Differential Diagnoses: The differential diagnosis associated with the presentation includes bronchitis, mass, URI, reactive airway disease Admission/Observation Consideration of admission/observation: Escalation of care including admission/observation considered given work of breathing, wheezing and RR will admit - no pneumonia seen on CTA has emphysema though will start on ceftriaxone 945am possible infection suspected resp pathogen panel pending Consult Healthcare Provider Management of the patient was discussed with: Hospitalist (will admit) Lab Data MDM Lab Attestation statement: I reviewed the patient's lab results. 03/01/24 06:55 03/01/24 07:17 Labs: Lab Results 03/01/24 03/01/24 03/01/24 Range/Units 06:55 07:17 07:25 WBC 11.4 H (4.8-10.8) X10*3/uL RBC 4.13 L (4.20-5.50) X10*6/uL Hgb 12.7 (12.0-16.0) g/dl Hct 36.5 L (37.0-47.0) % MCV 88.4 (80.0-98.0) fL MCH 30.8 (27.0-33.0) pg MCHC 34.8 (31.0-35.0) g/dl RDW 12.7 (11.0-16.0) % Plt Count 452 H (160-400) X10*3/uL MPV 9.3 L (9.4-12.3) fL Immature Gran % (Auto) 0.4 (0.0-0.4) % Neut % (Auto) 77.7 H (45-73) % Lymph % (Auto) 6.0 L (20-40) % [place] % (Auto) 7.4 (2-11) % Eos % (Auto) 8.0 H (0-4) % Baso % (Auto) 0.5 (0-2) % Lymph # (Auto) 0.7 L (1.2-4.9) X10*3/uL [place] # (Auto) 0.8 (0.1-1.2) X10*3/uL Eos # (Auto) 0.9 H (0.0-0.4) X10*3/uL Baso # (Auto) 0.1 (0.0-0.2) X10*3/uL Abs Immat Gran (auto) 0.04 H (0.00-0.03) X10*3/uL Absolute Neuts (auto) 8.8 H (2.0-8.3) x10*3/uL Absolute Nucleated RBC 0.000 (0.0-0.012) X10*3/uL Nucleated RBC % (auto) 0.0 (0.0-0.2) /100WBC Smear Tech's Comments VERIFIED VBG pH (7.32-7.43) VBG pCO2 mmHg VBG pO2 mmHg VBG HCO3 (22-26) mmol/L VBG O2 Saturation % VBG Base Excess mmol/L Sodium 129 L (135-145) mmol/L Potassium 3.4 (3.3-5.1) mmol/L Chloride 95 L (96-108) mmol/L Carbon Dioxide 24 (22-29) mmol/L Anion Gap 13 (12-20) BUN 7 L (9-16) mg/dL Creatinine 0.61 (0.5-1.4) mg/dL Estim Creat Clear Calc 62.1 Estimated GFR > 60 Random Glucose 143 H (60-115) mg/dL Lactic Acid (0.5-2.0) mmol/L Calcium 9.4 (8.4-10.2) mg/dL Troponin I High Sens 9.6 (<3.5-17.0) ng/L B-Natriuretic Peptide 33 (<100) pg/mL Respiratory Panel Bach Adenovirus (Rapid PCR) (Not Detect.) B.pert (TEM-PCR) (Not Detect.) B.parapertussis DNA PCR (Not Detect.) C. pneumoniae DNA (PCR) (Not Detect.) Coronavirus OC43 (PCR) (Not Detect.) Coronavirus HKU1 (PCR) (Not Detect.) Coronavirus 229E (PCR) (Not Detect.) Coronavirus NL63 (PCR) (Not Detect.) Human Metapneumovir PCR (Not Detect.) Influenza A (RT-PCR) (Not Detect.) Influenza Type A (PCR) NEGATIVE (Negative) Influenza B (RT-PCR) (Not Detect.) Influenza Type B (PCR) NEGATIVE (Negative) M. pneumoniae (PCR) (Not Detect.) Parainfluenza 1 (PCR) (Not Detect.) Parainfluenza 2 (PCR) (Not Detect.) Parainfluenza 3 (PCR) (Not Detect.) Parainfluenza 4 (PCR) (Not Detect.) RSV (PCR) (Not Detect.) RSV RNA Qual (PCR) NEGATIVE (Negative) Entero/Rhino (PCR) (Not Detect.) SARS-CoV-2 RNA (RT-PCR) NEGATIVE (Negative) 03/01/24 03/01/24 03/01/24 Range/Units 07:27 07:44 10:15 WBC (4.8-10.8) X10*3/uL RBC (4.20-5.50) X10*6/uL Hgb (12.0-16.0) g/dl Hct (37.0-47.0) % MCV (80.0-98.0) fL MCH (27.0-33.0) pg MCHC (31.0-35.0) g/dl RDW (11.0-16.0) % Plt Count (160-400) X10*3/uL MPV (9.4-12.3) fL Immature Gran % (Auto) (0.0-0.4) % Neut % (Auto) (45-73) % Lymph % (Auto) (20-40) % [place] % (Auto) (2-11) % Eos % (Auto) (0-4) % Baso % (Auto) (0-2) % Lymph # (Auto) (1.2-4.9) X10*3/uL [place] # (Auto) (0.1-1.2) X10*3/uL Eos # (Auto) (0.0-0.4) X10*3/uL Baso # (Auto) (0.0-0.2) X10*3/uL Abs Immat Gran (auto) (0.00-0.03) X10*3/uL Absolute Neuts (auto) (2.0-8.3) x10*3/uL Absolute Nucleated RBC (0.0-0.012) X10*3/uL Nucleated RBC % (auto) (0.0-0.2) /100WBC Smear Tech's Comments VBG pH 7.62 H* (7.32-7.43) VBG pCO2 24 mmHg VBG pO2 169 mmHg VBG HCO3 24 (22-26) mmol/L VBG O2 Saturation 99.0 % VBG Base Excess 4.9 mmol/L Sodium (135-145) mmol/L Potassium (3.3-5.1) mmol/L Chloride (96-108) mmol/L Carbon Dioxide (22-29) mmol/L Anion Gap (12-20) BUN (9-16) mg/dL Creatinine (0.5-1.4) mg/dL Estim Creat Clear Calc Estimated GFR Random Glucose (60-115) mg/dL Lactic Acid 1.7 (0.5-2.0) mmol/L Calcium (8.4-10.2) mg/dL Troponin I High Sens (<3.5-17.0) ng/L B-Natriuretic Peptide (<100) pg/mL Respiratory Panel Bach See Note Adenovirus (Rapid PCR) Not Detected (Not Detect.) B.pert (TEM-PCR) Not Detected (Not Detect.) B.parapertussis DNA PCR Not Detected (Not Detect.) C. pneumoniae DNA (PCR) Not Detected (Not Detect.) Coronavirus OC43 (PCR) Not Detected (Not Detect.) Coronavirus HKU1 (PCR) Not Detected (Not Detect.) Coronavirus 229E (PCR) Not Detected (Not Detect.) Coronavirus NL63 (PCR) Not Detected (Not Detect.) Human Metapneumovir PCR Not Detected (Not Detect.) Influenza A (RT-PCR) Not Detected (Not Detect.) Influenza Type A (PCR) (Negative) Influenza B (RT-PCR) Not Detected (Not Detect.) Influenza Type B (PCR) (Negative) M. pneumoniae (PCR) Not Detected (Not Detect.) Parainfluenza 1 (PCR) Not Detected (Not Detect.) Parainfluenza 2 (PCR) Not Detected (Not Detect.) Parainfluenza 3 (PCR) Not Detected (Not Detect.) Parainfluenza 4 (PCR) Not Detected (Not Detect.) RSV (PCR) Not Detected (Not Detect.) RSV RNA Qual (PCR) (Negative) Entero/Rhino (PCR) Not Detected (Not Detect.) SARS-CoV-2 RNA (RT-PCR) Not Detected (Negative) Independent Interpretation I performed an independent interpretation of an: EKG and CT Scan (no PE, no pneumonia) Interpretation: Rate: 94 Rhythm: NSR [place]: left Normal P waves. Normal PASHA. Normal QRS complex. ST T wave : no SYD, flat aVL qTC: 432 prior studies: no acute ischemia The study has been interpreted contemporaneously by me. . Radiology Impression Discussion of test interpretation with radiology: I have reviewed the radiologist's reading. External Record Review External record reviewed: Inpatient record Critical Care Time Critical Care Time Critical Care Time: Yes Total Critical Care Time: 35 Attestation: repeat nebs, IV steroids, review of records, admission I attest to this time spent taking care of the patient Discharge Plan Discharge Clinical Impression: Acute bronchospasm, Shortness of breath, Bronchiolitis Patient Disposition: Admitted As Inpatient
[2024-03-01 07:07] LABS: Monocytes Percent Auto 7.4 % (2-11)
[2024-03-01 07:09] LABS: Basophils Absolute Auto 0.1 X10*3/uL (0.0-0.2); Basophils Percent Auto 0.5 % (0-2); Eosinophils Absolute Auto 0.9 X10*3/uL (0.0-0.4); Hematocrit 36.5 % (37.0-47.0); Imm Gran Abs Auto 0.04 X10*3/uL (0.00-0.03); Imm Gran Pct Auto 0.4 % (0.0-0.4); Lymphocytes Absolute Auto 0.7 X10*3/uL (1.2-4.9); MANUAL DIFF FLAG SCAN; Mean Corpuscular HGB Conc 34.8 g/dl (31.0-35.0); Mean Corpuscular Hemoglobin 30.8 pg (27.0-33.0); Mean Corpuscular Volume 88.4 fL (80.0-98.0); Monocytes Absolute Auto 0.8 X10*3/uL (0.1-1.2); Neutrophils Absolute Auto 8.8 x10*3/uL (2.0-8.3); Neutrophils Percent Auto 77.7 % (45-73); Red Blood Count 4.13 X10*6/uL (4.20-5.50); Red Cell Distribution Width 12.7 % (11.0-16.0)
[2024-03-01 07:14] LABS: White Blood Count 11.4 X10*3/uL (4.8-10.8)
[2024-03-01 07:28] LABS: Troponin-I High Sensitivity 9.6 ng/L (<3.5-17.0)
[2024-03-01 07:35] LABS: Mean Platelet Volume 9.3 fL (9.4-12.3); Platelet Count 452 X10*3/uL (160-400); SLIDE REVIEW VERIFIED
[2024-03-01 07:41] LABS: Venous Blood Gas Refer to POC result
[2024-03-01 07:42] LABS: Anion Gap 13 (12-20); Blood Urea Nitrogen 7 mg/dL (9-16); Calcium 9.4 mg/dL (8.4-10.2); Carbon Dioxide 24 mmol/L (22-29); Chloride 95 mmol/L (96-108); Creatinine Clr Calc Pharmacy 62.1; Estimated Glomerular Filt Rate > 60; Glucose Random 143 mg/dL (60-115); Potassium 3.4 mmol/L (3.3-5.1); Sodium 129 mmol/L (135-145)
[2024-03-01 07:42] LABS: VBG Base Excess 4.9 mmol/L; VBG HCO3 24 mmol/L (22-26); VBG pCO2 24 mmHg; VBG pH 7.62 (7.32-7.43); VBG pO2 169 mmHg
[2024-03-01 07:53] LABS: B Type Natriuretic Peptide 33 pg/mL (<100)
[2024-03-01] MEDS: Albuterol Sulfate 2.5 MG, Albuterol/Iprat 2.5/0.5MG 3 ML 3 ML INHALE (07:54)
[2024-03-01] MEDS: Albuterol Sulfate (0.083%) 2.5 MG/3 ML VIAL.NEB INHALE (08:08)
[2024-03-01] MEDS: methylPREDNISolone Sod Succ 125 MG/2 ML VIAL 60 MG IVPUSH (08:11)
[2024-03-01 09:02] LABS: Influenza A PCR NEGATIVE (Negative); Influenza B PCR NEGATIVE (Negative); Resp Syncy Virus RNA Qual PCR NEGATIVE (Negative); SARS COV2 PCR INHOUSE NEGATIVE (Negative)
[2024-03-01] MEDS: 0.9 % Sodium Chloride 1,000 ML 80 ML IVCONT (09:16)
[2024-03-01] MEDS: Acetaminophen 325 MG TABLET 650 MG PO (10:06)
[2024-03-01] MEDS: cefTRIAXone sodium 1 GM in 0.9 % Sodium Chloride 50 ML IV (10:32)
[2024-03-01 10:34] LABS: Lactic Acid 1.7 mmol/L (0.5-2.0)
--- NOTE | 2024-03-01 11:11 | P.HPHOSP_ITS ---
History of Present Illness Date of Service: 03/01/24 Attending physician on admission: Nya Llanos Chief Complaint: sob 78 yo f with PMHx HTN,RA , ? hypothyroidism-patient is having intermittent symptom of shortness of breath since January -patient went to her PCP and given prednisone taper and doxycycline without much effect, so decided to come to the hospital. Patient also having cough on and off she says the sputum will be clear to yellowish color. Denies any fever or sick contacts or recent travel. Lived with a smoker as a child but otherwise has never smoked. No fevers. Reportedly just had normal CXR. She is using albuterol newly which sort of helps as well. Denies any new complaint of chest pain or abdominal pain or fever or chills or nausea or vomiting Denies any weakness or numbness. Lab imaging reviewed: WBC count 11.4 h/h: 12.7/36.5 platlet 452. bmp:sodium 129 range bnp 33 serum osm-normal urine osm and electolytes-lower side. cta: Negative for pulmonary embolus and. Mild tree-in-bud airspace opacities in the middle lobe consistent with bronchiolitis Review of Systems 2 Review of Systems: as above. Yes all other systems are reviewed and are negative [facility] Medical History Osteopenia Hypothyroid HLD (hyperlipidemia) HTN (hypertension) Rheumatoid arthritis Surgical History S/P total left hip arthroplasty S/P total right hip arthroplasty Social History Patient Tobacco Use Status: Never used Tobacco Advance Directives: No Advance Directives Information Provided: Yes Do you have a plan to hurt others: No Plan Nutrition Risks: No Nutritional Risk Meds Allergies Allergy/AdvReac Type Severity Reaction Status Date / Time oxaprozin [Daypro] Allergy Unknown Rash Verified 03/01/24 06:43 alendronate sodium Allergy Unknown Verified 03/01/24 06:43 amlodipine Allergy Swelling Verified 03/01/24 06:43 amoxicillin Allergy Diarrhea Verified 03/01/24 06:43 azithromycin Allergy Rash Verified 03/01/24 06:43 carvedilol Allergy Joint Pain Verified 03/01/24 06:43 hydrochlorothiazide Allergy Unknown Verified 03/01/24 06:43 labetalol Allergy Swelling Verified 03/01/24 06:43 nitrofurantoin Allergy Gastrointestinal Verified 03/01/24 06:43 Upset Sulfa (Sulfonamide Allergy Gastrointestinal Verified 03/01/24 06:43 Antibiotics) Upset sulfamethoxazole Allergy Gastrointestinal Verified 03/01/24 06:43 [From Upset Sulfamethoxazole-Trimethoprim] trimethoprim Allergy Gastrointestinal Verified 03/01/24 06:43 [From Upset Sulfamethoxazole-Trimethoprim] Caltrate 600 Allergy Unknown Unknown Uncoded 03/01/24 06:43 Flonase Allergy Unknown Unknown Uncoded 03/01/24 06:43 Active Medications: Current Medications Sodium Chloride (Ns) 1,000 mls @ 80 mls/hr IVCONT .[id number] Last Admin: 03/01/24 09:16 Dose: 80 mls/hr Home Medications ?Medication ?Instructions ?Recorded ?Confirmed ?Last Taken ?Type betamethasone dipropionate 0.05 % 1 appl topical BID PRN Rash 09/09/23 03/01/24 Unknown History topical cream loratadine 10 mg tablet 10 mg PO BEDTIME 09/09/23 03/01/24 Unknown History metronidazole 0.75 % topical cream 1 appl topical BID 09/09/23 03/01/24 Unknown History olmesartan 40 mg tablet 40 mg PO DAILY 09/09/23 03/01/24 Unknown History Lactobacillus rhamnosus GG 10 1 cap PO DAILY 03/01/24 03/01/24 Unknown History billion cell capsule (Culturelle) albuterol sulfate 90 mcg/actuation 2 puff inhalation Q6H PRN wheezing 03/01/24 03/01/24 03/01/24 History aerosol inhaler celecoxib 200 mg capsule (Celebrex) 200 mg PO BID 03/01/24 03/01/24 Unknown History cholecalciferol (vitamin D3) 25 25 mcg PO DAILY 03/01/24 03/01/24 Unknown History mcg (1,000 unit) tablet (Vitamin D3) clobetasol 0.05 % topical cream 1 appl topical DAILY PRN Rash 03/01/24 03/01/24 Unknown History cocoa butter-zinc oxide 76 %-10 % 1 supp RI BEDTIME 03/01/24 03/01/24 Unknown History rectal suppository (Calmol-4) fluticasone propionate 50 2 spray intranasal DAILY 03/01/24 03/01/24 Unknown History mcg/actuation nasal spray,suspension hydrochlorothiazide 12.5 mg tablet 6.25 mg PO SUMOWEFR 03/01/24 03/01/24 Unknown History hydroxychloroquine 200 mg tablet 200 mg PO Q OTHER DAY 03/01/24 03/01/24 02/29/24 History hydroxychloroquine 200 mg tablet 400 mg PO Q OTHER DAY 03/01/24 03/01/24 02/28/24 History levothyroxine 112 mcg tablet 112 mcg PO SUMOTUWETHFR 03/01/24 03/01/24 Unknown History Physical Exam 2 Vital Signs and Narrative: Vital Signs: Last Vital Signs Temp 98.7 F 03/01/24 11:09 Pulse 110 H 03/01/24 11:09 Resp 22 H 03/01/24 11:09 BP 133/70 03/01/24 11:09 Pulse Ox 94 03/01/24 11:09 O2 Del Method Room Air 03/01/24 11:09 BMI result Body Mass Index 21.9 Appearance: Alert.? Oriented X3.? sob ?. cvs: rrr, [id number] , no murmur res: air entry diminished ,has mild b/l wheezing. abd: no rebound or guarding ,nt, bs present. ext pulses present , no cyanosis . neuro: axo3 , nonfocal. Results Labs 03/01/24 06:55 03/01/24 15:45 Labs: Laboratory Results - last 24 hr 03/01/24 03/01/24 03/01/24 06:55 07:17 07:25 MCV 88.4 MCH 30.8 MCHC 34.8 RDW 12.7 Plt Count 452 H MPV 9.3 L Immature Gran % (Auto) 0.4 Neut % (Auto) 77.7 H Lymph % (Auto) 6.0 L Pope % (Auto) 7.4 Eos % (Auto) 8.0 H Baso % (Auto) 0.5 Lymph # (Auto) 0.7 L Pope # (Auto) 0.8 Eos # (Auto) 0.9 H Baso # (Auto) 0.1 Abs Immat Gran (auto) 0.04 H Absolute Neuts (auto) 8.8 H Absolute Nucleated RBC 0.000 Nucleated RBC % (auto) 0.0 Smear Tech's Comments VERIFIED VBG pH VBG pCO2 VBG pO2 VBG HCO3 VBG O2 Saturation VBG Base Excess Anion Gap 13 Estim Creat Clear Calc 62.1 Estimated GFR > 60 Random Glucose 143 H Lactic Acid Calcium 9.4 Troponin I High Sens 9.6 B-Natriuretic Peptide 33 Influenza Type A (PCR) NEGATIVE Influenza Type B (PCR) NEGATIVE RSV RNA Qual (PCR) NEGATIVE SARS-CoV-2 RNA (RT-PCR) NEGATIVE 03/01/24 03/01/24 07:27 10:15 MCV MCH MCHC RDW Plt Count MPV Immature Gran % (Auto) Neut % (Auto) Lymph % (Auto) Pope % (Auto) Eos % (Auto) Baso % (Auto) Lymph # (Auto) Pope # (Auto) Eos # (Auto) Baso # (Auto) Abs Immat Gran (auto) Absolute Neuts (auto) Absolute Nucleated RBC Nucleated RBC % (auto) Smear Tech's Comments VBG pH 7.62 H* VBG pCO2 24 VBG pO2 169 VBG HCO3 24 VBG O2 Saturation 99.0 VBG Base Excess 4.9 Anion Gap Estim Creat Clear Calc Estimated GFR Random Glucose Lactic Acid 1.7 Calcium Troponin I High Sens B-Natriuretic Peptide Influenza Type A (PCR) Influenza Type B (PCR) RSV RNA Qual (PCR) SARS-CoV-2 RNA (RT-PCR) Assessment and Plan (1) Shortness of breath: Status: Acute (2) Acute bronchospasm: Status: Acute Plan 78 yo f with PMHx HTN,RA , ? hypothyroidism- came with sob 1 month ,also has cough productive copd excerebation(undiagnosed copd) cta -shows emphysema, no pulm embolism ,has bronchiolitis. res panel negative tachycardia sec to nebs tachypnea due to copd/emphysema. mild leucocytosis sec to bronchiolitis. continue nebs,steriods ,iv doxycycline,loratidine ,hycodan . hyponatremia possible chronic possible related hctz /dehydration serum osm normal urine osmolarity/electrolytes low Briefly received fluid in ED. . Fluid, hold hydrochlorothiazide Monitor sodium closely hx rheumatoid arthritis: continue homemeds -hydrochloroquine, currently also on steroids due to COPD. History of hypothyroidism: Continue levothyroxine. htn : continue MANPREET ,will add small dose amlodipine and dc hctz. DVT prophylaxis: SubQ Lovenox. Ongoing hospitalization need: Patient will benefit from 2 midnight stays- secondary to COPD exacerbation, hypo natremia: Patient is nebs, steroids, IV antibiotics and need close renal function and electrolytes monitering. Above management discussed with the patient and her family at bedside in detail they all understand and in agreement with the above plan. Time spent 70 minute. Quality Stroke Does the patient have a stroke diagnosis?: No VTE Prior VTE?: No VTE Risk Level:: Medical - moderate - high VTE Device Contraindication: N/A - Device Ordered VTE Drug Contraindication: N/A - Med Ordered
[2024-03-01] MEDS: iohexoL 350 MG/ML 100 ML INFUS..BTL IV (11:12)
[2024-03-01 11:34] LABS: Adenovirus PCR Not Detected (Not Detect.); Bordetella parapertussis PCR Not Detected (Not Detect.); Bordetella pertussis PCR Not Detected (Not Detect.); Chlamydia pneumoniae PCR Not Detected (Not Detect.); Coronavirus 229E PCR Not Detected (Not Detect.); Coronavirus HKU1 PCR Not Detected (Not Detect.); Coronavirus NL63 PCR Not Detected (Not Detect.); Coronavirus OC43 PCR Not Detected (Not Detect.); Human metapneumovirus PCR Not Detected (Not Detect.); Influenza A PCR Not Detected (Not Detect.); Influenza B PCR Not Detected (Not Detect.); Mycoplasma pneumoniae PCR Not Detected (Not Detect.); Parainfluenza 1 PCR Not Detected (Not Detect.); Parainfluenza 2 PCR Not Detected (Not Detect.); Parainfluenza 3 PCR Not Detected (Not Detect.); Parainfluenza 4 PCR Not Detected (Not Detect.); RSV PCR Not Detected (Not Detect.); Rhino/Enterovirus PCR Not Detected (Not Detect.)
[2024-03-01] MEDS: Omeprazole 20 MG CAPSULE.DR PO (11:41)
[2024-03-01] MEDS: Enoxaparin Sodium 40 MG/0.4 ML SYRINGE SUBCUT (11:41)
[2024-03-01] MEDS: guaiFEN/Codeine SF 200/20/10ML 10 ML LIQUID PO ×3 (11:41→21:58)
[2024-03-01] MEDS: Albuterol/Iprat 2.5/0.5MG 3 ML AMPUL.NEB INHALE ×4 (11:59→23:07)
[2024-03-01 12:14] LABS: Osmolality Urine 143 mosm/kg (373-1093); Potassium Urine Random 14.5 mmol/L; Sodium Urine Random < 20.0 mmol/L
[2024-03-01 12:18] LABS: Chloride Urine Random < 20.0 mmol/L
[2024-03-01 13:08] LABS: SARS-CoV-2 PCR Not Detected (Not Detect.)
--- NOTE | 2024-03-01 14:12 | PHA.MEDREC ---
Pharmacy Consult ? Medication Reconciliation Pharmacy has completed the medication reconciliation. spoke with patient and family to confirm medications. They had an uncompleted med list and verified the rest of them. She reports her hydroxychloroquine alternates 200 mg daily and 400 mg daily. She last took 200 mg yesterday. She only takes a 1/2 tablet of the hydrochlorothiazide on wednesday, wednesday, wednesday and wednesday. She reports she finished her prednisone taper last week. She is no longer taking the benzonatate capsules. She reports she was taking mucinex for the phlegm but stopped taking it on Wednesday. She reports she did not take any medications today.
[2024-03-01] MEDS: Levothyroxine Sodium 112 MCG TABLET PO (14:57)
[2024-03-01] MEDS: Hydroxychloroquine Sulfate 200 MG TABLET 400 MG PO (14:58)
[2024-03-01] MEDS: 0.9 % Sodium Chloride Flush 3 ML SYRINGE IVFLUSH ×2 (15:01→21:59)
[2024-03-01 16:14] LABS: Sodium 133 mmol/L (135-145)
[2024-03-01 16:39] LABS: Osmolality, Serum 285 mosm/kg (281-305)
[2024-03-01 19:24] LABS: Sodium 135 mmol/L (135-145)
[2024-03-01] MEDS: Doxycycline Hyclate 100 MG in 0.9 % Sodium Chloride 250 ML 166.67 MG IV (21:54)
[2024-03-01] MEDS: Loratadine 10 MG TABLET PO (21:58)
[2024-03-01] MEDS: Celecoxib 200 MG CAPSULE PO (21:58)
[2024-03-01] MEDS: methylPREDNISolone Sod Succ 40 MG/ML VIAL IVPUSH (21:59)
[2024-03-01] MEDS: Cocoa Butter/Zinc Oxide SUPP.RECT 1 SUPP PR (21:59)
[2024-03-01] MEDS: Acetaminophen 325 MG TABLET 975 MG PO (22:17)
[2024-03-01 23:52] LABS: Sodium 136 mmol/L (135-145)
[2024-03-02] VITALS (13 sets, daily range): BP systolic 153–173; BP diastolic 75–88; PULSE 84–105; RESP 15–18; TEMP 36.1–36.8; O2SAT 94–97
[2024-03-02] MEDS: Albuterol/Iprat 2.5/0.5MG 3 ML AMPUL.NEB INHALE ×4 (04:30→23:50)
[2024-03-02] MEDS: Omeprazole 20 MG CAPSULE.DR PO (05:15)
[2024-03-02] MEDS: Levothyroxine Sodium 112 MCG TABLET PO (05:15)
[2024-03-02] MEDS: guaiFEN/Codeine SF 200/20/10ML 10 ML LIQUID PO ×4 (05:15→23:12)
[2024-03-02 07:47] LABS: Anion Gap 15 (12-20); Blood Urea Nitrogen 7 mg/dL (9-16); Calcium 9.2 mg/dL (8.4-10.2); Carbon Dioxide 22 mmol/L (22-29); Chloride 99 mmol/L (96-108); Estimated Glomerular Filt Rate > 60; Glucose Random 169 mg/dL (60-115); Potassium 3.3 mmol/L (3.3-5.1); Sodium 133 mmol/L (135-145)
[2024-03-02 08:20] LABS: Alanine Aminotransferase 15 U/L (0-31); Alkaline Phosphatase 92 U/L (39-117); Aspartate Amino Transferase 16 U/L (5-31); Bilirubin Direct < 0.2 mg/dL (0.0-0.5); Bilirubin Total 0.2 mg/dL (0.0-1.0); Total Protein 6.8 g/dL (6.5-8.0)
[2024-03-02] MEDS: 0.9 % Sodium Chloride Flush 3 ML SYRINGE IVFLUSH ×3 (09:27→23:13)
[2024-03-02] MEDS: Cholecalciferol (Vitamin D3) 25 MCG TABLET PO (09:28)
[2024-03-02] MEDS: Valsartan 160 MG TABLET PO (09:28)
[2024-03-02] MEDS: Celecoxib 200 MG CAPSULE PO ×2 (09:28→20:16)
[2024-03-02] MEDS: methylPREDNISolone Sod Succ 40 MG/ML VIAL IVPUSH ×2 (09:28→20:17)
[2024-03-02] MEDS: Hydroxychloroquine Sulfate 200 MG TABLET PO (09:29)
[2024-03-02] MEDS: Doxycycline Hyclate 100 MG in 0.9 % Sodium Chloride 250 ML 166.67 MG IV ×2 (09:30→20:17)
[2024-03-02] MEDS: Enoxaparin Sodium 40 MG/0.4 ML SYRINGE SUBCUT (11:04)
--- NOTE | 2024-03-02 11:59 | MHC.CM.PN ---
IMM 03/02/24, EMR REVIEWED, PT W/(UNDIAGNOSED) COPD EXAC & HYPONATREMIA, CM MET W/PT WHO REPORTS SHE LIVES W/HER AND ADULT DTR, PT IS FULLY INDEP AT BASELINE, DENIES USE OF DME/SERVICES AND GOAL FOR DC IS HOME NO SERVICES. PT VERIFIES PCP IS [facility] AND COPY OF HCP AT [facility], CM WILL CALL TO REQUEST COPY.
--- NOTE | 2024-03-02 12:57 | HO.PM.IMPN ---
Subjective Subjective Date of Service: 03/02/24 Interval History: copd excerebation,hyponatremia Review of Systems sob with excersion,otherwise feeling somewhat improving from yesterday cough improving Physical Exam Vital Signs: Vital Signs: Last Vital Signs Temp 98.3 F 03/02/24 12:00 Pulse 98 03/02/24 12:00 Resp 15 03/02/24 12:00 BP 173/83 H 03/02/24 12:00 Pulse Ox 94 03/02/24 12:00 O2 Del Method Room Air 03/02/24 12:00 BMI result Body Mass Index 21.9 Appearance: Alert.? Oriented X3.? sob ?. cvs: rrr, [id number] . res: air entry diminished ,has b/l wheezing. abd: no rebound or guarding ,nt, bs present. ext pulses present , no cyanosis . neuro: axo3 , nonfocal. Objective Data Active Medications Acetaminophen (Acetaminophen 325 Mg Tablet) 975 mg PO Q6H PRN PRN Reason: mild pain, headache or fever Last Admin: 03/01/24 22:17 Dose: 975 mg Documented By: FRIDA Albuterol Sulfate (Albuterol Sulfate 90 Mcg 8 Gm Inhaler) 2 puff INHALE Q6H PRN PRN Reason: wheezing Albuterol/Ipratropium (Albuterol/Iprat 2.5/0.5mg 3 Ml Ampul.Neb) 3 ml INHALE Q4H [facility] Last Admin: 03/02/24 04:30 Dose: 3 ml Documented By: PIPER Betamethasone Dipropion Augmented (Betamethasone Dip Aug 0.05% Cr 15 Gm Tube) 1 appl TOPICAL DAILY PRN PRN Reason: rash Celecoxib (Celecoxib 200 Mg Capsule) 200 mg PO BID [facility] Last Admin: 03/02/24 09:28 Dose: 200 mg Documented By: DEA Acton Butter/Zinc Oxide (Acton Butter/Zinc Oxide Supp.Rect) 1 supp UT BEDTIME [facility] Last Admin: 03/01/24 21:59 Dose: 1 supp Documented By: FRIDA Enoxaparin Sodium (Enoxaparin Sodium 40 Mg/0.4 Ml Syringe) 40 mg SUBCUT Q24H [facility] Last Admin: 03/02/24 11:04 Dose: 40 mg Documented By: DEA Fluticasone Propionate (Fluticasone Propionate Nasal 16 Gm Colon) 2 spray NOSTRIL-B DAILY [facility] Last Admin: 03/02/24 09:30 Dose: Not Given Documented By: DEA Non-Admin Reason: uses at bedtime Guaifenesin/Codeine Phosphate (Guaifen/Codeine Sf 200/20/10ml 10 Ml Liquid) 10 ml PO Q6H [facility] Last Admin: 03/02/24 11:04 Dose: 10 ml Documented By: DEA Hydroxychloroquine Sulfate (Hydroxychloroquine Sulfate 200 Mg Tablet) 200 mg PO Q48H [facility] Last Admin: 03/02/24 09:29 Dose: 200 mg Documented By: DEA Hydroxychloroquine Sulfate (Hydroxychloroquine Sulfate 200 Mg Tablet) 400 mg PO Q48H [facility] Doxycycline Hyclate 100 mg/ (Sodium Chloride) 250 mls @ 166.67 mls/hr IV BID [facility] Last Infusion: 03/02/24 11:04 Dose: Infused Documented By: DEA Levothyroxine Sodium (Levothyroxine Sodium 112 Mcg Tablet) 112 mcg PO SuMoTuWeThFr@0600 [facility] Last Admin: 03/02/24 05:15 Dose: 112 mcg Documented By: FRIDA Loratadine (Loratadine 10 Mg Tablet) 10 mg PO BEDTIME [facility] Last Admin: 03/01/24 21:58 Dose: 10 mg Documented By: FRIDA Methylprednisolone Sodium Succinate (Methylprednisolone Sod Succ 40 Mg/Ml Vial) 40 mg IVPUSH BID [facility] Last Admin: 03/02/24 09:28 Dose: 40 mg Documented By: DEA Non-Formulary Medication (Metronidazole) 1 appl TOPICAL BID [facility] Omeprazole (Omeprazole 20 Mg Capsule.Dr) 20 mg PO DAILY@0630 [facility] Last Admin: 03/02/24 05:15 Dose: 20 mg Documented By: FRIDA Sodium Chloride (0.9 % Sodium Chloride Flush 3 Ml Syringe) 3 ml IVFLUSH QSHIFT [facility] Last Admin: 03/02/24 09:27 Dose: 3 ml Documented By: DEA Triamcinolone Acetonide (Triamcinolone Acet 0.5 % Oint 15 Gm Tube) 1 appl TOPICAL BID PRN PRN Reason: Rash Valsartan (Valsartan 160 Mg Tablet) 160 mg PO DAILY [facility] Last Admin: 03/02/24 09:28 Dose: 160 mg Documented By: DEA Vitamin D (Cholecalciferol (Vitamin D3) 25 Mcg Tablet) 25 mcg PO DAILY [facility] Last Admin: 03/02/24 09:28 Dose: 25 mcg Documented By: DEA Labs 03/01/24 06:55 03/02/24 07:20 Labs: Laboratory Results - last 24 hr 03/01/24 03/01/24 03/02/24 07:44 15:45 07:20 Hold Purple Top SEE NOTE Anion Gap 15 Estim Creat Clear Calc 60.0 Estimated GFR > 60 Random Glucose 169 H Osmolality 285 Calcium 9.2 Total Bilirubin 0.2 Direct Bilirubin < 0.2 AST 16 ALT 15 Alkaline Phosphatase 92 Total Protein 6.8 Albumin 4.0 Respiratory Panel Bach See Note Adenovirus (Rapid PCR) Not Detected B.pert (TEM-PCR) Not Detected B.parapertussis DNA PCR Not Detected C. pneumoniae DNA (PCR) Not Detected Coronavirus OC43 (PCR) Not Detected Coronavirus HKU1 (PCR) Not Detected Coronavirus 229E (PCR) Not Detected Coronavirus NL63 (PCR) Not Detected Human Metapneumovir PCR Not Detected Influenza A (RT-PCR) Not Detected Influenza B (RT-PCR) Not Detected M. pneumoniae (PCR) Not Detected Parainfluenza 1 (PCR) Not Detected Parainfluenza 2 (PCR) Not Detected Parainfluenza 3 (PCR) Not Detected Parainfluenza 4 (PCR) Not Detected RSV (PCR) Not Detected Entero/Rhino (PCR) Not Detected SARS-CoV-2 RNA (RT-PCR) Not Detected Microbiology Microbiology Results: Microbiology 03/01/24 10:27 Blood Culture - Preliminary Blood - Venous No growth after 24 hours. 03/01/24 10:15 Blood Culture - Preliminary Blood - Venous No growth after 24 hours. Assessment and Plan (1) Bronchiolitis: Status: Acute (2) Shortness of breath: Status: Acute Plan 78 yo f with PMHx HTN,RA , ? hypothyroidism- came with sob 1 month ,also has cough productive copd excerebation(undiagnosed copd) sob with mild excersion cta -shows emphysema, no pulm embolism ,has bronchiolitis. res panel negative tachycardia sec to nebs tachypnea due to copd/emphysema. mild leucocytosis sec to bronchiolitis. continue nebs,steriods ,iv doxycycline,loratidine ,hycodan . hyponatremia possible chronic possible related hctz /dehydration serum osm normal urine osmolarity/electrolytes low improving with holding hctz. hx rheumatoid arthritis: continue homemeds -hydrochloroquine, currently also on steroids due to COPD. History of hypothyroidism: Continue levothyroxine. htn uncontrolled: continue MANPREET ,will add small dose amlodipine and dc hct,added procardia ongoing hospitalization need: copd excerbation/bronchiolitis-still significantly symptomatic -continue steroids, nebs, monitor respiratory status closely, monitor electrolytes closely for hyponatremia, also need monitering bp uncontrolled ( added procardia). Quality Stroke Does the patient have a stroke diagnosis?: No VTE Prior VTE?: No VTE Risk Level:: Medical - moderate - high VTE Device Contraindication: N/A - Device Ordered VTE Drug Contraindication: N/A - Med Ordered
[2024-03-02] MEDS: NIFEdipine ER 30 MG TAB.ER.24 PO (13:50)
[2024-03-02] MEDS: Loratadine 10 MG TABLET PO (20:16)
[2024-03-02] MEDS: Cocoa Butter/Zinc Oxide SUPP.RECT 1 SUPP PR (20:22)
[2024-03-03 03:02] VITALS: BP 155/78; PULSE 97; RESP 16; TEMP 36.8; O2SAT 98
[2024-03-03] MEDS: Omeprazole 20 MG CAPSULE.DR PO (05:41)
[2024-03-03] MEDS: guaiFEN/Codeine SF 200/20/10ML 10 ML LIQUID PO ×2 (05:41→11:24)
[2024-03-03] MEDS: Levothyroxine Sodium 112 MCG TABLET PO (05:48)
[2024-03-03 07:01] VITALS: BP 159/74; PULSE 97; RESP 18; TEMP 36.6; O2SAT 95
[2024-03-03] MEDS: Albuterol/Iprat 2.5/0.5MG 3 ML AMPUL.NEB INHALE ×3 (07:59→15:17)
[2024-03-03] MEDS: methylPREDNISolone Sod Succ 40 MG/ML VIAL IVPUSH (08:56)
[2024-03-03] MEDS: 0.9 % Sodium Chloride Flush 3 ML SYRINGE IVFLUSH (08:56)
[2024-03-03] MEDS: Celecoxib 200 MG CAPSULE PO (08:57)
[2024-03-03] MEDS: Cholecalciferol (Vitamin D3) 25 MCG TABLET PO (08:57)
[2024-03-03] MEDS: Hydroxychloroquine Sulfate 200 MG TABLET 400 MG PO (08:57)
[2024-03-03 08:58] VITALS: BP 151/74
[2024-03-03] MEDS: Valsartan 160 MG TABLET PO (08:58)
[2024-03-03 08:59] VITALS: BP 151/74
[2024-03-03] MEDS: NIFEdipine ER 30 MG TAB.ER.24 60 MG PO (08:59)
[2024-03-03] MEDS: Doxycycline Monohydrate 100 MG CAPSULE PO (09:27)
--- NOTE | 2024-03-03 09:34 | PM.DS ---
DS: Providers Provider Date of Service: 03/03/24 Date of admission: 03/01/24 11:04 Date of discharge: 03/03/24 Primary care physician: Balaji Mercado MD Attending physician on discharge: Nya Llanos Discharging clinician: Nya Llanos DS: Diagnosis Discharge Diagnosis (1) Bronchiolitis: Status: Acute (2) Shortness of breath: Status: Acute DS: Summary Hospital Course Hospital Course: 78 yo f with PMHx HTN,RA , ? hypothyroidism-patient is having intermittent symptom of shortness of breath since January -patient went to her PCP and given prednisone taper and doxycycline without much effect, so decided to come to the hospital. Patient also having cough on and off she says the sputum will be clear to yellowish color. Denies any fever or sick contacts or recent travel. Lived with a smoker as a child but otherwise has never smoked. No fevers. Reportedly just had normal CXR. She is using albuterol newly which sort of helps as well. Denies any new complaint of chest pain or abdominal pain or fever or chills or nausea or vomiting Denies any weakness or numbness. Lab imaging reviewed: WBC count 11.4 h/h: 12.7/36.5 platlet 452. bmp:sodium 129 range bnp 33 serum osm-normal urine osm and electolytes-lower side. cta: Negative for pulmonary embolus and. Mild tree-in-bud airspace opacities in the middle lobe consistent with bronchiolitis. Hospital course: Patient was admitted for shortness of breath and productive cough for 1 week-patient came to the hospital further workup with CTA shows mild emphysema and bronchitis: Patient was started on IV steroids, nebs, loratadine and cough syrup high-patient is seems to be improved significantly: Will be going home with p.o. prednisone 40 mg for 4 days. Doxycycline 100 mg p.o. b.i.d. for 7 days, loratadine 10 mg daily for 10 days. Will also add cough syrup. Hyponatremia possibly chronic-likely related to hydrochlorothiazide use. Patient hydrochlorothiazide was stopped and patient's sodium improved. hypertension: added nifedipine 60 mg po daily, continue omlesartan. Follow BMP out patiently in 1 week. plan: Continue prednisone 40 mg for 4 days. Doxycycline 100 mg p.o. b.i.d. for 7 days, loratadine 10 mg daily for 10 days. Will also add cough syrup. cta chest shows:1.5 x 1.3 cm groundglass nodule in the right upper lobe. consider follow up Ct chest outpatient with for follow up(please see imaging section for below for details). Stop hydrochlorothiazide, continue nifedipine 60 mg po daily. Follow BMP out patiently in 1 week. Follow-up with PCP outpatient, further management outpatient. Consider outpatient pulmonary evaluation. Above management discussed with the patient in detail length she understand and in agreement with the above plan, time spent 40 minute. Time Attestation Total time managing care of this patient today: 40 mintues. Discharge Coordination Time (in mins): 40 min Quality: Safe Use of Opioids Does Pt have an Active Cancer Diagnosis on the Problem List?: No Quality: Stroke Does the patient have a stroke diagnosis?: No Physical Exam Vital Signs: Vital Signs: Last Vital Signs Temp 97.9 F 03/03/24 07:01 Pulse 97 03/03/24 07:01 Resp 18 03/03/24 07:01 BP 151/74 H 03/03/24 08:59 Pulse Ox 95 03/03/24 07:01 O2 Del Method Room Air 03/03/24 07:01 BMI result Body Mass Index 21.9 Appearance: Alert.? Oriented X3.? sob ?. cvs: rrr, [id number] , no murmur res: air entry diminished ,has mild b/l wheezing. abd: no rebound or guarding ,nt, bs present. ext pulses present , no cyanosis . neuro: axo3 , nonfocal. DS: Data Data Completed and Pending Labs on day of discharge: Preliminary micro results at discharge 03/01/24 10:27 Blood Culture - Preliminary Blood - Venous No growth after 24 hours. 03/01/24 10:15 Blood Culture - Preliminary Blood - Venous No growth after 24 hours. Imaging Chest x-ray: Radiologist's impression: ITS Impressions Chest CTA 03/01/24 11:11 IMPRESSION: Negative for pulmonary embolus and. Mild tree-in-bud airspace opacities in the middle lobe consistent with bronchiolitis. 1.5 x 1.3 cm groundglass nodule in the right upper lobe. 2017 Fleischner Society Recommendations for Lung Nodule(s): Follow-Up based on size (average of long- and short-axis diameters). Use most suspicious nodule for followup. Single GG lung nodule >= 6 mm: Recommend a non-contrast Chest CT at 6-12 months to confirm persistence, then additional non-contrast Chest CTs every 2 years until 5 years. These guidelines do not apply to patients younger than 35 years, immunocompromised patients, and patients with cancer. Follow up in patients with significant comorbidities as clinically warranted. For lung cancer screening, adhere to Lung-RADS guidelines. Reference: Radiology. 2017 Apr; 284(1):228-243 Emphysema and diffuse airway wall thickening consistent with chronic airways disease. VTE: negative Discharge Plan Discharge Anticipated Discharge Date/Time: 03/03/24 09:13 Patient Disposition: Home, Self-Care Discharge Diagnosis: Bronchiolitis, possible COPD exacerbation, hypertension, hyponatremia Referrals: Balaji Mercado MD [Primary Care Provider] - 1 Week Discharge Medications: New omeprazole 20 mg Capsule,Delayed Release(Dr/Ec) 20 mg PO DAILY@0630 Qty: 30 0RF nifedipine 30 mg Tablet Extended Release 24hr 60 mg PO DAILY Qty: 180 0RF Protocol: Hold for SBP< HOLD for SBP < : 90 doxycycline monohydrate 100 mg Capsule 100 mg PO Q12H Qty: 14 0RF prednisone 20 mg tablet 40 mg PO DAILY Qty: 8 0RF Continued celecoxib [Celebrex] 200 mg capsule 200 mg PO BID hydroxychloroquine 200 mg tablet 200 mg PO Q OTHER DAY albuterol sulfate 90 mcg/actuation HFA aerosol inhaler 2 puff inhalation Q6H PRN (Reason: wheezing) fluticasone propionate 50 mcg/actuation spray,suspension 2 spray intranasal DAILY levothyroxine 112 mcg tablet 112 mcg PO SUMOTUWETHFR Culturelle 10 billion cell Capsule 1 cap PO DAILY cholecalciferol (vitamin D3) [Vitamin D3] 25 mcg (1,000 unit) Tablet 25 mcg PO DAILY Calmol-4 76-10 % Suppository 1 supp SD BEDTIME clobetasol 0.05 % cream 1 appl topical DAILY PRN (Reason: Rash) hydroxychloroquine 200 mg Tablet 400 mg PO Q OTHER DAY betamethasone dipropionate 0.05 % cream 1 appl topical BID PRN (Reason: Rash) metronidazole 0.75 % cream 1 appl topical BID loratadine 10 mg tablet 10 mg PO BEDTIME olmesartan 40 mg tablet 40 mg PO DAILY Discontinued hydrochlorothiazide 12.5 mg tablet 6.25 mg PO SUMOWEFR Discharge Orders: Discharge Order (Routine); Ordered 03/03/24 Ordered By: Nya Llanos Diet: Advance to usual diet Activity on Discharge: As tolerated Stand Alone Forms: Patient Portal Discharge page Print Language: Arabic Other Ambulatory Orders: Basic Metabolic Panel (Routine) Timeframe: 1 Week Facility: [facility] - Location: Laboratory Ordered By: Nya Llanos Care Plan Goals: Patient was admitted for shortness of breath and productive cough for 1 week-patient came to the hospital further workup with CTA shows mild emphysema and bronchitis: Patient was started on IV steroids, nebs, loratadine and cough syrup high-patient is seems to be improved significantly: Will be going home with p.o. prednisone 40 mg for 4 days. Doxycycline 100 mg p.o. b.i.d. for 7 days, loratadine 10 mg daily for 10 days. Will also add cough syrup. Hyponatremia possibly chronic-likely related to hydrochlorothiazide use. Patient hydrochlorothiazide was stopped and patient's sodium improved. hypertension: added nifedipine 60 mg po daily, continue omlesartan. Follow BMP out patiently in 1 week. Follow-up with PCP outpatient, further management outpatient. Consider outpatient pulmonary evaluation. Health Concerns: As above. Plan of Treatment: As above. Assessment: As above.
--- NOTE | 2024-03-03 10:51 | MHC.CM.PN ---
Addendum entered by Dayna Tiwari 03/03/24 11:01: [facility] WILL FAX A COPY OF PTS HCP TO CM OFFICE Original Note: PT CLEARED TO [place] HOME TODAY WITH NO SERVICES VIA PRIVATE TRANSPORT CM DID CALL [facility] TO REQUEST A COPY OF PTS HCP [facility] [phone] #[phone]
[2024-03-03] MEDS: Enoxaparin Sodium 40 MG/0.4 ML SYRINGE SUBCUT (11:25)
[2024-03-03 11:35] VITALS: PULSE 93; RESP 18; O2SAT 98
[2024-03-03 15:18] VITALS: PULSE 101; RESP 20; O2SAT 98
== END 2024-03-03 17:13 | disposition home or self-care (01) | DRG 202 ==
LOC: HO.ED 09:36 → HO.EDOVER 11:13 → HO.S3 17:18
PROVIDERS: Internal Medicine; Physician Assistant; Admitting Provider Internal Medicine; Emergency Provider Emergency Medicine; PCP Internal Medicine; Visit Provider Internal Medicine
DX: J21.9 Acute bronchiolitis, unspecified (principal); E87.1 Hypo-osmolality and hyponatremia; M06.9 Rheumatoid arthritis, unspecified; E78.5 Hyperlipidemia, unspecified; E03.9 Hypothyroidism, unspecified; J43.9 Emphysema, unspecified; I10 Essential (primary) hypertension; Z20.822 Contact with and (suspected) exposure to COVID-19; Z79.890 Hormone replacement therapy; Z79.899 Other long term (current) drug therapy
CPT/HCPCS: 0241U; 36415; 71275; 80048; 80076; 82436; 82803; 83605; 83880; 83930; 83935; 84133; 84295; 84300; 84484; 85025; 87040; 87633; 93005; 94640; 97161; 99285; J0696; J1650; J2919; Q9967

== ENCOUNTER → 2024-03-01 06:44 | Outpatient (BNV) | payer MEDICARE, SELFPAY | PROVIDERS: Admitting Provider Internal Medicine; Emergency Provider Emergency Medicine; PCP Internal Medicine; Visit Provider Internal Medicine | DX: R06.02 Shortness of breath (principal); R94.31 Abnormal electrocardiogram [ECG] [EKG] | CPT/HCPCS: 93010 ==

== ENCOUNTER → 2024-03-01 11:04 | Outpatient (BNV) | payer MEDICARE, SELFPAY | PROVIDERS: Admitting Provider Internal Medicine; Emergency Provider Emergency Medicine; PCP Internal Medicine; Visit Provider Internal Medicine | DX: J21.9 Acute bronchiolitis, unspecified (principal); R06.02 Shortness of breath | CPT/HCPCS: 99223; 99232; 99239 ==

== ENCOUNTER → 2024-04-03 13:59 | Outpatient (REF) | payer MEDICARE, SELFPAY ==
--- NOTE | 2024-04-03 14:04 | CA_ITS ---
Transthoracic Echocardiogram Patient (Last, First, Middle): Samantha Lr A Gender: Female Date of : 1945 Age: 79 Procedure Date: 04/03/2024 Procedure Type: Transthoracic Echocardiogram Location: OP Height: 154.94 cm Weight: 58.97 kg BSA: 1.57 m2 Heart Rate: bpm BP: 126 / 78 mmHg Solution Analyst: MARIA M Referring MD: Arsalan De La Torre PA-C Symptoms: R06.02 SOB Study Quality: Adequate ECG Rhythm: Sinus Conclusions: - The left ventricular systolic function is normal. The calculated ejection fraction is 63% by biplane method. - No obvious valvular pathology seen on this study. Findings Left Ventricle Normal left ventricular cavity size. The left ventricular systolic function is normal. The calculated ejection fraction is 63% by biplane method. There is no evidence of regional wall motion abnormalities. Evidence suggests grade I (mild) diastolic dysfunction. There is mild septal asymmetric hypertrophy. Right Ventricle Normal right ventricular cavity size and systolic function. Atria Both atria are normal in size. Aortic Valve There is a normal trileaflet aortic valve. There is no aortic valve stenosis. There is no aortic valve regurgitation. Mitral Valve The mitral valve appears normal. There is no mitral valve regurgitation. There is no mitral valve stenosis. Pulmonic Valve The pulmonic valve is likely normal. Tricuspid Valve There is trace tricuspid valve regurgitation. There is no evidence of pulmonary hypertension. Great Vessels The asc aorta is normal in size. Venous The inferior vena cava is normal in size and collapses greater than 50% with inspiration. Pericardium/Pleural There is no evidence of pericardial effusion. Prior Study Comparison No prior study available for comparison. Recommendations, Care & Conclusions No obvious valvular pathology seen on this study. Measurements 2D Linear Measurements IVSd: 1.11 0.6-0.9/0.6-1.0 cm LVIDd: 3.68 3.9-5.3/4.2-5.9 cm LVIDd Index: 2.34 2.4-3.2/2.2-3.1 cm/m2 LVIDs: 2.13 2.0-3.6 cm LVPWd: 0.86 0.7-1.1 cm LA Diam: 2.40 2.7-3.8/3.0-4.0 cm LAIDs Index: 1.53 1.5-2.3 cm/m2 LV Mass: 136.05 67-162/88-224 g LV Mass Index: 86.65 43-95/49-115 g/m2 LVOT Diam: 1.90 3.0+(-)1.3 cm 2D Systolic Function EF 4C: 60.70 >55% EF 2C: 64.20 >55% EF BiP: 63.10 >55% Mitral Valve MV Pk E: 0.73 MV PK A: 1.08 MV Decel Time: 195.00 E/A: 0.70 E'Lateral: 8.16 E'Medial: 3.92 E/E' Med: 18.60 E/E' Lat: 8.90 PHT: 57.00 MVA PHT: 3.86 Decel Payette: 3.74 Aortic Valve AoV Pk Emmett: 1.45 AoV Mn Emmett: 0.99 AoV VTI: 0.25 AoV Pk Grad: 8.00 Aov Mn Grad: 4.00 MARTIN Cont.VTI: 2.14 LVOT LVOT Pk Emmett: 1.16 LVOT Mn Emmett: 0.83 LVOT VTI: 0.19 LVOT Pk Grad: 5.00 LVOT Mn Grad: 3.00 LVOT Diam: 1.90 LVOT Area: 2.84 Diastolic Function MV Pk E: 0.73 MV Pk A: 1.08 E/A: 0.70 E'Medial: 3.92 E/E' Med: 18.60 E' Laterial: 8.16 E/E' Lat: 8.90 Right Ventricle TAPSE (mm): 20.00 TVS' Emmett: 12.90 Tricuspid Valve TR Pk Emmett: 2.29 TR Pk Grad: 21.00 RA Press: 3.00 RVSP: 24.00 Great Vessels Aorta Sinus of Valsalva: 3.23 2.0-3.[address] [place]: 2.55 1.7-3.4 cm Ao Asc: 3.40 2.1-3.4 cm Updated in Other Vendor System with Status of Final Gil Wade MD electronically signed on 04/04/2024 12:49:04 PM with status of Final
== END ==
LOC: HO.CARD 13:59
PROVIDERS: PCP Internal Medicine; Visit Provider Physician Assistant Surgical
DX: R06.02 Shortness of breath (principal)
CPT/HCPCS: 93306

== ENCOUNTER → 2024-04-03 14:04 | Outpatient (BNV) | payer MEDICARE, SELFPAY | PROVIDERS: PCP Internal Medicine; Visit Provider Internal Medicine | DX: I42.2 Other hypertrophic cardiomyopathy (principal) | CPT/HCPCS: 93306 ==

== ENCOUNTER 2024-04-08 10:23 | Inpatient (IN) | payer MEDICARE, SELFPAY ==
[2024-04-08] VITALS (12 sets, daily range): BP systolic 117–156; BP diastolic 69–81; PULSE 64–106; RESP 15–85; TEMP 36.6–37.2; O2SAT 25–98; BMI 23.8; BMI 23.7
--- NOTE | ~2024-04-08 | XR_ITS ---
EXAMINATION: XR CHEST CLINICAL INFORMATION: Reason for Exam CP COMPARISON: CT PE protocol 03/01/2024 TECHNIQUE: One view of the chest FINDINGS: Lines and tubes: EKG leads overlie the patient. Blunting of the costophrenic angles may reflect small bilateral pleural effusions. Clear lungs. No pneumothorax. Unchanged cardiomediastinal silhouette. XR/XR chest 1V IMPRESSION: 1. Blunting of the costophrenic angles may reflect small bilateral pleural effusions. Clear lungs.
--- NOTE | 2024-04-08 10:25 | ECG_ITS ---
Test Reason : chest pain Blood Pressure : / mmHG Vent. Rate : 104 BPM Atrial Rate : 104 BPM P-R Int : 180 ms QRS Dur : 082 ms QT Int : 342 ms P-R-T Axes : 069 -26 051 degrees QTc Int : 449 ms Sinus tachycardia Septal infarct (cited on or before 01-MAR-2024) Abnormal ECG When compared with ECG of 01-MAR-2024 06:51, No significant change was found Referred By: Generic ED Physician Electronically Signed By:DONNELL DOWNEY
[2024-04-08] MEDS: Magnesium Sulfate/H2O 2 GM/50 ML PIGGYBACK IV (11:08)
[2024-04-08] MEDS: methylPREDNISolone Sod Succ 125 MG/2 ML VIAL IVPUSH (11:08)
--- NOTE | 2024-04-08 11:09 | ED_ITS ---
HPI - SOB/Dyspnea General Chief Complaint: Dyspnea Stated Complaint: chest pain diff breathing Time Seen by Provider: 04/08/24 10:42 Source: patient and family (Daughter) Mode of arrival: ambulatory Limitations: no limitations History of Present Illness ED Provider: DR. Mari HPI Narrative: 79-year-old female with PMH HTN, RA, hypothyroidism, and started to have on and off breathing problems started 2 months ago, patient declined any history of smoking, had a recent hospitalization for similar presentation of shortness of breath and bronchospasm, patient was seen by public health technologist at [facility] who prescribed medication to the patient that is not fully effective for the patient. Presented with 2 days of worsening of difficulty breathing mostly with exertion, patient also reported PND and lower extremities edema. Patient had a CTA of the chest on 03/01/24. Which is consistent with diffuse airway wall thickening consistent with chronic airway disease. Related Data Home Medications ?Medication ?Instructions ?Recorded ?Confirmed betamethasone dipropionate 0.05 % 1 appl topical BID PRN Rash 09/09/23 03/01/24 topical cream loratadine 10 mg tablet 10 mg PO BEDTIME 09/09/23 03/01/24 metronidazole 0.75 % topical cream 1 appl topical BID 09/09/23 03/01/24 olmesartan 40 mg tablet 40 mg PO DAILY 09/09/23 03/01/24 Lactobacillus rhamnosus GG 10 1 cap PO DAILY 03/01/24 03/01/24 billion cell capsule (Culturelle) albuterol sulfate 90 mcg/actuation 2 puff inhalation Q6H PRN wheezing 03/01/24 03/01/24 aerosol inhaler celecoxib 200 mg capsule (Celebrex) 200 mg PO BID 03/01/24 03/01/24 cholecalciferol (vitamin D3) 25 25 mcg PO DAILY 03/01/24 03/01/24 mcg (1,000 unit) tablet (Vitamin D3) clobetasol 0.05 % topical cream 1 appl topical DAILY PRN Rash 03/01/24 03/01/24 cocoa butter-zinc oxide 76 %-10 % 1 supp VT BEDTIME 03/01/24 03/01/24 rectal suppository (Calmol-4) fluticasone propionate 50 2 spray intranasal DAILY 03/01/24 03/01/24 mcg/actuation nasal spray,suspension hydroxychloroquine 200 mg tablet 200 mg PO Q OTHER DAY 03/01/24 03/01/24 hydroxychloroquine 200 mg tablet 400 mg PO Q OTHER DAY 03/01/24 03/01/24 levothyroxine 112 mcg tablet 112 mcg PO SUMOTUWETHFR 03/01/24 03/01/24 Previous Rx's ?Medication ?Instructions ?Recorded doxycycline monohydrate 100 mg 100 mg PO Q12H #14 caps 03/03/24 capsule nifedipine 30 mg tablet,extended 60 mg PO DAILY #180 tabs 03/03/24 release 24 hr omeprazole 20 mg capsule,delayed 20 mg PO DAILY@0630 #30 caps 03/03/24 release prednisone 20 mg tablet 40 mg (2 x 20 mg) PO DAILY #8 tabs 03/03/24 Allergies Allergy/AdvReac Type Severity Reaction Status Date / Time oxaprozin [Daypro] Allergy Unknown Rash Verified 04/08/24 10:38 alendronate sodium Allergy Unknown Verified 04/08/24 10:38 amlodipine Allergy Swelling Verified 04/08/24 10:38 amoxicillin Allergy Diarrhea Verified 04/08/24 10:38 azithromycin Allergy Rash Verified 04/08/24 10:38 carvedilol Allergy Joint Pain Verified 04/08/24 10:38 hydrochlorothiazide Allergy Unknown Verified 04/08/24 10:38 labetalol Allergy Swelling Verified 04/08/24 10:38 nitrofurantoin Allergy Gastrointestinal Verified 04/08/24 10:38 Upset Sulfa (Sulfonamide Allergy Gastrointestinal Verified 04/08/24 10:38 Antibiotics) Upset sulfamethoxazole Allergy Gastrointestinal Verified 04/08/24 10:38 [From Upset Sulfamethoxazole-Trimethoprim] trimethoprim Allergy Gastrointestinal Verified 04/08/24 10:38 [From Upset Sulfamethoxazole-Trimethoprim] Caltrate 600 Allergy Unknown Unknown Uncoded 03/01/24 06:43 Flonase Allergy Unknown Unknown Uncoded 03/01/24 06:43 Review of Systems 2 Review of Systems: All other systems are reviewed and are negative Constitutional: Reports as per HPI and Reports no additional constitutional complaints Eyes: Reports as per HPI and Reports no additional eye complaints Reports system reviewed and no additional complaints, except as documented Cardiovascular: Reports as per HPI and Reports no additional cardiovascular complaints Respiratory: Reports as per HPI and Reports no additional respiratory complaints Gastrointestinal: Reports as per HPI and Reports no additional gastrointestinal complaints Genitourinary: Reports no additional female genitourinary complaints Musculoskeletal: Reports no additional musculoskeletal complaints Skin/Breast: Reports system reviewed and no additional complaints, except as docu Psychiatric: Reports no additional psychiatric complaints Endocrine: Reports no additional endocrine complaints Hematologic/Lymphatic: Reports no additional hematologic/lymphatic complaints Allergic/Immunologic: Reports no additional allergic/immunologic complaints Reports system reviewed and no additional complaints, except as documented and Reports Abnormal speech present [facility] Past Medical History Medical History Osteopenia Hypothyroid HLD (hyperlipidemia) HTN (hypertension) Rheumatoid arthritis Surgical History S/P total left hip arthroplasty S/P total right hip arthroplasty Social History Social History Household Members: Family Housing: House Housing Other:: 2 floors Do you presently have visiting nurse or other home services: No Patient Tobacco Use Status: Never used Tobacco e-Cigarette/Vaping Use: Never Used Advance Directives: No Advance Directives Information Provided: No Do you have a plan to hurt others: No Plan service: No Physical Exam 2 Vital Signs: Vital Signs: Last Vital Signs Pulse 94 04/08/24 11:33 Resp 18 04/08/24 11:33 BP 145/73 H 04/08/24 11:33 Pulse Ox 95 04/08/24 11:33 O2 Del Method Room Air 04/08/24 11:33 BMI result Body Mass Index 23.8 Vital signs have been reviewed and appear to be correct. Blood pressure elevated. Heart rate elevated , Respiratory rate fast, Temperature normal. Oxygen saturation normal. Appearance: Alert. Oriented X3. Mild acute respiratory distress. Head: Normal external exam. Normocephalic. Atraumatic. No Drummond signs noted. No raccoon eyes noted Eyes: PERRLA. EOMI. Conjunctiva and sclera normal. Eyelids normal. ENT: TM's Normal. Pharynx normal. Uvula midline. Moist mucous membranes. No trismus noted. No drooling noted. No muffled voice noted. Neck: Normal inspection. Neck supple. FROM. No adenopathy. Thyroid Normal. No meningeal signs. No neck mass noted. CVS: Normal heart rate and rhythm. Heart sound normal. No murmurs noted. Pulses normal throughout. Respiratory: Mild acute respiratory distress. Painless inspiration. Breath sounds normal, diffuse expiratory wheezing with prolonged expiration, Chest nontender. No accessory muscle usage noted or decreased air movement noted. Abdomen: Soft and nontender. Bowel sounds normal in all 4 quadrants. No distention noted. No organomegaly noted. No visible injury noted. Back: No CVA tenderness. Full range of motion noted. Skin: Skin warm and dry. Normal skin color. Normal skin turgor. No rashes/lesions/lacerations noted. Extremities: No lower extremity edema. Extremities exhibit normal range of motion. Extremities nontender. Neuro: Oriented X 3. Cranial nerve exam: II-XII are grossly intact No motor deficit. No sensory deficit. Reflexes normal. Course Reevaluation(s) Reevaluation #1: Acute bronchospasm. Patient came in with mild acute respiratory distress improved after was given bronchodilator, magnesium, and Solu-Medrol, and prophylactic dose of doxycycline. Will admit the patient to inpatient care for further evaluation and likely pulmonology consultation. Time: 12:45 Medications Administered Generic Name Dose Route Start Last Admin Trade Name Freq PRN Reason Stop Dose Admin Magnesium Sulfate 2 gm in 50 mls @ 25 mls/hr 04/08/24 10:50 04/08/24 11:08 Magnesium Sulfate/H2o IV 04/08/24 12:49 25 mls/hr ONCE ONE Administration Discontinued Medications Generic Name Dose Route Start Last Admin Trade Name Freq PRN Reason Stop Dose Admin Albuterol Sulfate 5 mg/ 0 mg 04/08/24 11:08 04/08/24 11:12 Albuterol/Ipratropium 3 ml INHALE 04/08/24 11:09 7.5 each ONCE ONE Administration Furosemide 20 mg 04/08/24 11:11 04/08/24 11:30 Furosemide 20 Mg/2 Ml Vial IVPUSH 04/08/24 11:12 20 mg ONCE ONE Administration Protocol Doxycycline Hyclate 100 mg/ 250 mls @ 166.67 mls/hr 04/08/24 10:50 04/08/24 11:15 Sodium Chloride IV 04/08/24 12:19 166.67 mls/hr ONCE ONE Administration Methylprednisolone Sodium Succinate 125 mg 04/08/24 10:50 04/08/24 11:08 Methylprednisolone Sod Succ 125 Mg/2 Ml Vial IVPUSH 04/08/24 10:51 125 mg ONCE ONE Administration Medical Decision Making Differential Diagnosis Differential Diagnoses: The differential diagnosis associated with the presentation includes (Acute asthma exacerbation, ACS, pneumonia, pneumothorax, pleural effusion, electrolyte derangement, severe anemia.) Admission/Observation Consideration of admission/observation: Escalation of care including admission/observation considered Consult Healthcare Provider Management of the patient was discussed with: Hospitalist (Dr. Kirk) Lab Data MDM Lab Attestation statement: I reviewed the patient's lab results. 04/08/24 11:08 04/08/24 11:08 Labs: Lab Results 04/08/24 04/08/24 Range/Units 11:06 11:08 WBC 8.1 (4.8-10.8) X10*3/uL RBC 4.06 L (4.20-5.50) X10*6/uL Hgb 12.2 (12.0-16.0) g/dl Hct 35.3 L (37.0-47.0) % MCV 86.9 (80.0-98.0) fL MCH 30.0 (27.0-33.0) pg MCHC 34.6 (31.0-35.0) g/dl RDW 12.2 (11.0-16.0) % Plt Count 449 H (160-400) X10*3/uL MPV 8.3 L (9.4-12.3) fL Immature Gran % (Auto) 0.5 H (0.0-0.4) % Neut % (Auto) 83.3 H (45-73) % Lymph % (Auto) 6.1 L (20-40) % [place] % (Auto) 3.7 (2-11) % Eos % (Auto) 5.5 H (0-4) % Baso % (Auto) 0.9 (0-2) % Lymph # (Auto) 0.5 L (1.2-4.9) X10*3/uL [place] # (Auto) 0.3 (0.1-1.2) X10*3/uL Eos # (Auto) 0.4 (0.0-0.4) X10*3/uL Baso # (Auto) 0.1 (0.0-0.2) X10*3/uL Abs Immat Gran (auto) 0.04 H (0.00-0.03) X10*3/uL Absolute Neuts (auto) 6.7 (2.0-8.3) x10*3/uL Absolute Nucleated RBC 0.000 (0.0-0.012) X10*3/uL Nucleated RBC % (auto) 0.0 (0.0-0.2) /100WBC PT 12.3 (11.1-13.3) SEC INR 1.0 (0.9-1.1) Sodium 130 L (135-145) mmol/L Potassium 3.5 (3.3-5.1) mmol/L Chloride 90 L (96-108) mmol/L Carbon Dioxide 29 (22-29) mmol/L Anion Gap 15 (12-20) BUN 11 (9-16) mg/dL Creatinine 0.75 (0.5-1.4) mg/dL Estim Creat Clear Calc 49.6 Estimated GFR > 60 Random Glucose 151 H (60-115) mg/dL Lactic Acid 1.0 (0.5-2.0) mmol/L Calcium 9.7 (8.4-10.2) mg/dL Magnesium 2.0 (1.6-2.6) mg/dL Total Bilirubin 0.4 (0.0-1.0) mg/dL AST 25 (5-31) U/L ALT 31 (0-31) U/L Alkaline Phosphatase 255 H (39-117) U/L Troponin I High Sens 8.5 (<3.5-17.0) ng/L B-Natriuretic Peptide 50 (<100) pg/mL Total Protein 7.6 (6.5-8.0) g/dL Albumin 4.4 (3.5-5.0) g/dL Independent Interpretation I performed an independent interpretation of an: Plain X-Ray (Chest, no acute intrathoracic pathology.) Radiology Impression Discussion of test interpretation with radiology: I have reviewed the radiologist's reading. Critical Care Time Critical Care Time Critical Care Time: Yes Total Critical Care Time: 45 Attestation: The patient was critically ill with a high probability of imminent or life- threatening deterioration. I spent greater than 30 minutes of discontinuous time evaluating the patient, delivering critical care at the bedside, discussing evaluating data with consultants. Critical care time does not include time spent performing separately billable procedures or teaching. Time spent performing critical care was 45 minutes. Discharge Plan Discharge Clinical Impression: Acute bronchospasm, Shortness of breath Patient Disposition: Admitted As Inpatient Print Language: French
[2024-04-08] MEDS: Albuterol Sulfate 5 MG, Albuterol/Iprat 2.5/0.5MG 3 ML 3 ML INHALE (11:12)
[2024-04-08 11:13] LABS: MANUAL DIFF FLAG NO
[2024-04-08 11:15] LABS: Basophils Absolute Auto 0.1 X10*3/uL (0.0-0.2); Basophils Percent Auto 0.9 % (0-2); Eosinophils Absolute Auto 0.4 X10*3/uL (0.0-0.4); Eosinophils Percent Auto 5.5 % (0-4); Hematocrit 35.3 % (37.0-47.0); Hemoglobin 12.2 g/dl (12.0-16.0); Imm Gran Abs Auto 0.04 X10*3/uL (0.00-0.03); Imm Gran Pct Auto 0.5 % (0.0-0.4); Lymphocytes Absolute Auto 0.5 X10*3/uL (1.2-4.9); Lymphocytes Percent Auto 6.1 % (20-40); Mean Corpuscular HGB Conc 34.6 g/dl (31.0-35.0); Mean Corpuscular Volume 86.9 fL (80.0-98.0); Mean Platelet Volume 8.3 fL (9.4-12.3); Monocytes Absolute Auto 0.3 X10*3/uL (0.1-1.2); Monocytes Percent Auto 3.7 % (2-11); Neutrophils Absolute Auto 6.7 x10*3/uL (2.0-8.3); Neutrophils Percent Auto 83.3 % (45-73); Platelet Count 449 X10*3/uL (160-400); Red Blood Count 4.06 X10*6/uL (4.20-5.50); Red Cell Distribution Width 12.2 % (11.0-16.0); White Blood Count 8.1 X10*3/uL (4.8-10.8)
[2024-04-08] MEDS: Doxycycline Hyclate 100 MG in 0.9 % Sodium Chloride 250 ML 166.67 MG IV ×2 (11:15→21:50)
[2024-04-08 11:28] LABS: Prothrombin Time 12.3 SEC (11.1-13.3)
[2024-04-08 11:29] LABS: Alanine Aminotransferase 31 U/L (0-31); Albumin Level 4.4 g/dL (3.5-5.0); Alkaline Phosphatase 255 U/L (39-117); Anion Gap 15 (12-20); Aspartate Amino Transferase 25 U/L (5-31); Bilirubin Total 0.4 mg/dL (0.0-1.0); Blood Urea Nitrogen 11 mg/dL (9-16); Calcium 9.7 mg/dL (8.4-10.2); Carbon Dioxide 29 mmol/L (22-29); Chloride 90 mmol/L (96-108); Creatinine Clr Calc Pharmacy 49.6; Estimated Glomerular Filt Rate > 60; Glucose Random 151 mg/dL (60-115); Potassium 3.5 mmol/L (3.3-5.1); Sodium 130 mmol/L (135-145); Total Protein 7.6 g/dL (6.5-8.0)
[2024-04-08] MEDS: Furosemide 20 MG/2 ML VIAL IVPUSH (11:30)
--- OUTSIDE RECORDS SUMMARY | 2024-04-08 11:30 | XMS_ITS | Continuity of Care Document ---
Author Organization [facility] ter Address [address] [place] [address]- Care Team Providers Care Adobe Architect Name Role Phone Balaji Mercado MD Primary Care Physician Encounter [place] Date(s): 04/29/22 - 04/29/[address] [address] Attending Physician: Megan Bob Allergies, Adverse Reactions, Alerts Substance Reaction Severity Status azithromycin dizziness Active cortisone rash Active Daypro rash Active Flonase 0.05 mg/inh spray Ac tive Zithromax Z-Braulio Active Medications acetaminophen 325 mg oral tablet 650 mg, By Mouth, Every 6 hours, Refills 0, Maintenance, 06/02/17 7:26:36 Start Date: 06/02/17 Status: Ordered Aspirin Tablet 325 mg, By Mouth, 2 times a day, Refills 0, Maintenance, 06/02/17 7:26:55 Start Date: 06/02/17 Status: Ordered CeleBREX 200 mg oral capsule 1 capsule = 200 mg, By Mouth, Daily, # 30 capsule, 0 Refills, Maintenance, 05/31/17 2:11:30, Capsule Start Date: 05/31/17 Status: Ordered Claritin 10 mg oral tablet 10, mg, 1, tablet, By Mouth, Daily at bedtime, 0, 0, 03/11/06 10:12:34, Print SNOW Number, [id number], Constant Indicator Start Date: 03/11/06 Status: Ordered cyclobenzaprine 5 mg oral tablet 1 tablet = 5 mg, By Mouth, 3 times a day, 0 Refills, Maintenance, 02/05/17 10:26:27 Start Date: 02/05/17 Status: Ordered Desonide 0.05% Topical 1 application, Topically, Daily at bedtime, 0 Refills, Maintenance, Cream Start Date: 05/31/17 Status: Ordered docusate sodium 100 mg oral capsule 100 mg, 1, capsule, By Mouth, 2 times a day, Refills 0, Maintenance, 06/02/17 7:27:09 Start Date: 06/02/17 Status: Ordered fluticasone 50 mcg inhalation powder = 50 mcg, Inhalation, Daily at bedtime, 0 Refills, Maintenance, 02/05/17 10:24:49 Start Date: 02/05/17 Status: Ordered hydrochlorothiazide 12.5 mg oral capsule 1 capsule = 12.5 mg, By Mouth, Daily, 0 Refills, Maintenance, 02/05/17 10:26:10 Start Date: 02/05/17 Status: Ordered HYDROmorphone 2 mg oral tablet = 2 mg, By Mouth, Every 4 hours, PRN Pain , Mild, 0 Refills, Maintenance, 06/02/17 7:27:11, Tablet Start Date: 06/02/17 Status: Ordered HYDROmorphone 4 mg oral tablet = 4 mg, By Mouth, Every 4 hours, PRN Pain , Moderate, 0 Refills, Maintenance, 06/02/17 7:27:12, Tablet Start Date: 06/02/17 Status: Ordered lisinopril 20 mg oral tablet 20 mg, 1, tablet, By Mouth, Daily, Refills 0, Maintenance, 02/05/17 10:24:23 Start Date: 02/05/17 Status: Ordered Maalox Plus Liquid 30 mL, By Mouth, Every 4 hours, PRN Nausea & Vomiting, 0 Refills, Maintenance, 06/02/17 7:26:38, Suspension Start Date: 06/02/17 Status: Ordered metroNIDAZOLE 0.75% topical cream 1 application, Topically, Daily in AM, # 45 Gm, 0 Refills, Maintenance, 05/31/17 2:10:28, Cream Start Date: 05/31/17 Status: Ordered MiraLax Powder 1 pack/packet = 17 Gm, By Mouth, Daily, 0 Refills, Maintenance, 06/02/17 7:27:16, Powder Start Date: 06/02/17 Status: Ordered MOM Liquid 30 mL, By Mouth, Daily, PRN Constipation, 0 Refills, Maintenance, 06/02/17 7:27:14, Suspension Start Date: 06/02/17 Status: Ordered omeprazole 40 mg, By Mouth, Daily, Maintenance, 06/02/17 7:27:25, omeprazole Start Date: 06/02/17 Status: Ordered senna 187 mg oral tablet 1 tablet = 8.6 mg, By Mouth, Daily at bedtime, 0 Refills, Maintenance, 06/02/17 7:27:28, Tablet Start Date: 06/02/17 Status: Ordered Synthroid 0.112 mg oral tablet 0.112, mg, 1, tablet, By Mouth, Daily, 0, 0, 03/11/06 10:10:58, Print SNOW Number, [id number], Constant Indicator Start Date: 03/11/06 Status: Ordered Systane ophthalmic solution 1 drops, Eyes, Both, Daily at bedtime, PRN for dry eyes, # 5 mL, 0 Refills, Maintenance, 05/31/17 2:10:49, Solution Start Date: 05/31/17 Status: Ordered Vitamin D3 1000 intl units oral tablet 1 tablet = 1,000 International_Units, By Mouth, Daily, 0 Refills, Maintenance, 02/05/17 10:27:43 Start Date: 02/05/17 Status: Ordered Problem List Condition Effective Dates Status Health Status Inform ant Easy bruisability(Confirmed) Active Social History Social History Type Response Smoking Status Never smoker entered on: 02/05/17 Sex
--- OUTSIDE RECORDS SUMMARY | 2024-04-08 11:30 | XMS_ITS | Continuity of Care Document ---
Author Organization [facility] Address [address] [place] [address]- Care Team Providers Care Filer Finish Name Role Phone Balaji Mercado MD Primary Care Physician [place] [facility] [place] - 04/29/22 [facility] [address] [place] [address]- [place] Allergies, Adverse Reactions, Alerts Substance Reaction Severity [...] 0, 0, 03/11/06 10:10:58, Print SNOW Number, [id number], Constant Indicator Start Date: 03/11/06 Status: Ordered [...]
--- OUTSIDE RECORDS SUMMARY | 2024-04-08 11:30 | XMS_ITS | Continuity of Care Document ---
Author Organization [facility] Address [address] [place] [address] [address] [place] [address]- Care Team Providers Care Payroll Human Resources Assistant Name Role Phone Balaji Mercado MD Primary Care Physician [phone] [place] [facility] [place] - 02/09/[address] [place], [place] [address] Allergies, Adverse Reactions, Alerts Substance Reaction Severity [...] at bedtime, 0, 0, 03/11/06 10:12:34, Print SONW Number, [id number], Constant Indicator Start Date: 03/11/06 [...] 0, 0, 03/11/06 10:10:58, Print SNOW Number, [id number], Constant Indicator Start Date: 03/11/06 Status: Ordered Systane ophthalmic solution 1 drops, Eyes, Both, Daily at bedtime, PRN for dry eyes, # 5 mL, 0 Refills, Maintenance, 05/31/17 2:10:49, Solution Start Date: 05/31/17 Status: Ordered Vitamin D3 1000 intl units oral tablet 1 tablet = 1,000 International_Units, By Mouth, Daily, 0 Refills, Maintenance, 02/05/17 10:27:43 Start Date: 02/05/17 Status: Ordered Problem List Condition Confirmation Course Effective Dates Status Health St atus Informant Easy bruisability Confirmed Active Hemorrhoids Confirmed Active Social History Social History Type Response Smoking Status Never smoker entered on: 02/05/17 Sex Patient Care team information Care Team Personnel Name: Balaji Mercado MD Position: [facility] Outreach Member Role: PCP Address: Address: [address] [place] [address] Internal Medicine [address] Name: Rosalina Fong RN Position: [facility] SN RN Member Role: Primary Care Nurse Name: Isabel Maria RN Position: [facility] [place] Office Staff Member Role: Primary Care Nurse Name: Mandi Sarmiento Position: [facility] Outreach Member Role: Lifetime Consulting Physician Care Team Related Persons Name: ROBERT MARTIN Address: home [address] [place] [address] Name: LUIS HARRELL Address: [address] [address]
--- OUTSIDE RECORDS SUMMARY | 2024-04-08 11:30 | XMS_ITS | Continuity of Care Document ---
Author Organization [facility] Address [address] [place] [address]- Care Team Providers Care Motor Transport Inspector Name Role Phone Balaji Mercado MD Primary Care Physician [phone] [place] [facility] [place]22 [facility] [address] [place] [address]- Attending Physician: Gurinder Miller Admitting Physician: Gurinder Miller Referring Physician: AdmtrGurinder Allergies, Adverse Reactions, Alerts Substance Reaction Severity Status azithromycin dizziness Active cortisone rash Active Daypro rash Active Zithromax Z-Braulio Active Flonase 0.05 mg/inh spray Ac tive Medications acetaminophen 325 mg oral tablet 650 [...] 7:27:25, omeprazole Start Date: 06/02/17 Status: Ordered PEG-3350 with Electrolytes (Eqv-NuLYTELY) oral powder for reconstitution See Instructions, as directed, # 1 each, 0 Refills, Maintenance, 09/14/22 13:05:00 EST, [id number], ok to sub for any gallon prep, as directed, 159, cm, 09/14/22 12:27:00 EST, Height Start Date: 09/14/22 Status: Ordered senna 187 mg oral tablet 1 tablet = 8.6 mg, By Mouth, Daily at bedtime, 0 Refills, Maintenance, 06/02/17 7:27:28, Tablet Start Date: 06/02/17 Status: Ordered Synthroid 0.112 mg oral tablet 0.112, mg, 1, tablet, By Mouth, Daily, 0, 0, 03/11/06 10:10:58, Print SNOW Number, [id number], Constant Indicator Start Date: 03/11/06 Status: Ordered [...] St atus Informant Easy bruisability Confirmed Active Social History Social History Type Response Smoking Status Never smoker entered on: 02/05/17 Sex Note * Event Display: Non BH Lab Results Authored Date: * Event Display: Non BH Lab Results Authored Date: Patient Care team information Care Team Personnel Name: Balaji Mercado MD Position: [facility] Outreach Member Role: PCP Address: Address: [address] [place] [address] Internal Medicine [address] Name: Rosalina Fong RN Position: [facility] RN Member Role: Primary Care Nurse Name: Isabel Maria RN Position: [facility] RN Member Role: Primary Care Nurse Care Team Related Persons Name: ROBERT MARTIN Address: [address] [place] [address] Name: LUIS HARRELL Address: [address] [place] [address]
--- OUTSIDE RECORDS SUMMARY | 2024-04-08 11:30 | XMS_ITS | Continuity of Care Document ---
Author Organization [facility] Address [address] [place] [address] Dr [address] [place] [address]- Care Team Providers Care Maple Products Supervisor Name Role Phone Balaji Mercado MD Primary Care Physician [place] [facility] [place] - 04/05/[address] [place], [place] [address] Allergies, Adverse Reactions, Alerts Substance Reaction Severity Status azithromycin dizziness Active cortisone rash Active Daypro rash Active Flonase 0.05 mg/inh spray Ac tive Zithromax Z-Braulio Active Medications acetaminophen 325 mg oral tablet 650 mg, By Mouth, Every 6 hours, Refills 0, Maintenance, 06/02/17 7:26:36 Start Date: 06/02/17 Status: Ordered albuterol 0.083% inhalation solution 75 mL, 0 Refill(s), INHALE 3 ML BY NEBULIZATION EVERY 6 HOURS NEEDED, 0 Refills, 03/23/24 14:47:00 EDT, Partial fill upon patient request if the prescription is for a schedule II opioid drug. Start Date: 03/23/24 Status: Ordered albuterol CFC free 90 mcg/inh inhalation aerosol 2, puffs, Inhalation, Every 6 hours, PRN, # 18 Gm, Refills 0, Maintenance, 03/23/24 14:50:00 EDT, Aerosol Start Date: 03/23/24 Status: Ordered [place] Saline 0.65% nasal gel 1 sprays, 4 times a day, 0 Refills, Maintenance, 02/22/24 14:58:00 EDT, Partial fill upon patient request if the prescription is for a schedule II opioid drug. Start Date: 02/22/24 Status: Ordered Betamethasone Dipropionate 0.05% Lotion See Instructions, Apply 1 application, 2 times a day as needed., 0 Refills, Maintenance, 03/23/24 14:51:00 EDT, Partial fill upon patient request if the prescription is for a schedule II opioid drug. Start Date: 03/23/24 Status: Ordered CeleBREX 200 mg oral capsule 1 capsule = 200 mg, By Mouth, Daily, # 30 capsule, 0 Refills, Maintenance, 05/31/17 2:11:30, Capsule Start Date: 05/31/17 Status: Ordered clobetasol 0.05% topical ointment See Instructions, Apply 1 application topically daily as needed., 0 Refills, Maintenance, 03/23/24 15:07:00 EDT, Partial fill upon patient request if the prescription is for a schedule II opioid drug. Start Date: 03/23/24 Status: Ordered Culturelle Pro-well 3-in-1 oral capsule 1 capsule, By Mouth, Daily, # 30 capsule, 0 Refills, Maintenance, 03/23/24 15:04:00 EDT, Capsule, Partial fill upon patient request if the prescription is for a schedule II opioid drug. Start Date: 03/23/24 Status: Ordered cyclobenzaprine 5 mg oral tablet 1 tablet = 5 mg, By Mouth, 3 times a day, 0 Refills, Maintenance, 02/05/17 10:26:27 Start Date: 02/05/17 Status: Ordered Desonide 0.05% Topical 1 application, Topically, Daily at bedtime, 0 Refills, Maintenance, Cream Start Date: 05/31/17 Status: Ordered fluticasone 50 mcg inhalation powder = 50 mcg, Inhalation, Daily at bedtime, 0 Refills, Maintenance, 02/05/17 10:24:49 Start Date: 02/05/17 Status: Ordered furosemide 20 mg oral tablet 15 each, 0 Refill(s), Refills 0, 03/23/24 14:47:00 EDT, Partial fill upon patient request if the prescription is for a schedule II opioid drug. Start Date: 03/23/24 Status: Ordered Hemorrhoidal 0.25% rectal suppository See Instructions, Place 1 suppository rectally every morning., 0 Refills, Maintenance, 03/23/24 14:55:00 EDT, Partial fill upon patient request if the prescription is for a schedule II opioid drug. Start Date: 03/23/24 Status: Ordered hydrochlorothiazide 12.5 mg oral capsule 1 capsule = 12.5 mg, By Mouth, Daily, 0 Refills, Maintenance, 02/05/17 10:26:10 Start Date: 02/05/17 Status: Ordered hydroxychloroquine 200 mg oral tablet 180 tablet, 0 Refill(s), Refills 0, 03/23/24 15:02:00 EDT, Partial fill upon patient request if theprescription is for a schedule II opioid drug. Start Date: 03/23/24 Status: Ordered levothyroxine 112 mcg (0.112 mg) oral capsule 1 capsule = 112 mcg, By Mouth, Daily, # 30 tablet, 0 Refills, Maintenance, 02/22/24 15:04:00 EDT, Capsule, Partial fill upon patient request if the prescription is for a schedule II opioid drug. Start Date: 02/22/24 Status: Ordered lisinopril 20 mg oral tablet 20 mg, 1, tablet, By Mouth, Daily, Refills 0, Maintenance, 02/05/17 10:24:23 Start Date: 02/05/17 Status: Ordered loratadine 10 mg oral tablet 10 mg, 1, tablet, By Mouth, Daily, # 30 tablet, Refills 0, Maintenance, 03/23/24 15:08:00 EDT, Partial fill upon patient request if the prescription is for a schedule II opioid drug. Start Date: 03/23/24 Status: Ordered metroNIDAZOLE 0.75% topical cream 1 application, Topically, Daily in AM, # 45 Gm, 0 Refills, Maintenance, 05/31/17 2:10:28, Cream Start Date: 05/31/17 Status: Ordered multivitamin Multiple Vitamins oral capsule 2 capsules, By Mouth, Daily, # 30 capsule, 0 Refills, Maintenance, 03/23/24 15:09:00 EDT, Capsule, Partial fill upon patient request if the prescription is for a schedule II opioid drug. Start Date: 03/23/24 Status: Ordered mupirocin 2% topical ointment 1 application, Topically, 2 times a day, apply to affected skin, # 30 Gm, 0 Refills, Maintenance, 03/23/24 15:09:00 EDT, Ointment, Partial fill upon patient request if the prescription is for a schedule II opioid drug. Start Date: 03/23/24 Stop Date: 04/06/24 Status: Ordered NIFEdipine 30 mg oral tablet, extended release 30 Unknown, Oral, 0 Refill(s), Take 30 mg by mouth 2 (two) times a day., Refills 0, 03/02/24 20:00:00 EDT, Partial fill upon patient request if the prescription is for a schedule II opioid drug. Start Date: 03/02/24 Status: Ordered olmesartan 40 mg oral tablet 90 tablet, 0 Refill(s), 0 Refills, 03/23/24 15:01:00 EDT, Partial fill upon patient request if the prescription is for a schedule II opioid drug. Start Date: 03/23/24 Status: Ordered omeprazole 20 mg oral enteric coated capsule 30 each, 0 Refill(s), TAKE 1 CAPSULE BY MOUTH DAILY AT 6.30 AM, 0 Refills, 03/23/24 15:01:00 EDT, Partial fill upon patient request if the prescription is for a schedule II opioid drug. Start Date: 03/23/24 Status: Ordered Symbicort 80mcg/4.5mcg Inhaler 2, puffs, Inhalation, 2 times a day, # 10.2 Gm, Refills 3, Tot. Refills 3, Maintenance, 03/23/24 15:29:00 EDT, Aerosol, Route to Pharmacy Electronically, [id number], [facility] #[id number], 160, cm, 03/23/24 14:45:00 EDT... Start Date: 03/23/24 Stop Date: 07/21/24 Status: Ordered Synthroid 0.112 mg oral tablet 0.112, mg, 1, tablet, By Mouth, Daily, 0, 0, 03/11/06 10:10:58, Print SNOW Number, [id number], Constant Indicator Start Date: 03/11/06 Status: Ordered [...] Team Personnel Name: Balaji Mercado MD Position: [facility] Outreach Member Role: PCP Address: Address: [address] [place] [address] Internal Medicine [address] Name: Rosalina Fong RN Position: [facility] SN RN Member Role: Primary Care Nurse Name: Isabel Maria RN Position: [facility] Office Staff Member Role: Primary Care Nurse Name: Mandi Sarmiento Position: [facility] Outreach Member Role: Lifetime Consulting Physician Care Team Related Persons Name: FAUSTINA MARTINFER Address: [address] [address] Name: LUIS HARRELL Address: [address] [address]
--- OUTSIDE RECORDS SUMMARY | 2024-04-08 11:31 | XMS_ITS | Continuity of Care Document ---
Author Organization [facility] ter Address [address] [place] [id number]- Care Team Providers Care [employer] Name Role Phone Balaji Mercado MD Primary Care Physician [phone] Encounter [facility] Date(s): 03/31/23 - 03/31/[address] [id number] Discharge Disposition: A-D/C Home Attending Physician: Malachi Busch MD Admitting Physician: Malachi Busch MD Referring Physician: Malachi Busch MD Allergies, Adverse Reactions, Alerts Substance Reaction Severity [...] 0, 0, 03/11/06 10:10:58, Print SNOW Number, [id number], Constant Indicator Start Date: 03/11/06 Status: Ordered [...] St atus Informant Easy bruisability Confirmed Active Vital Signs Most recent to oldest [Reference Range]: 1 2 3 Height 160 cm (03/31/23 10:37 AM) Oxygen Saturation [94-100 %] 100 % (03/31/23 12:07 PM) 100 % (03/31/23 11:47 AM) 100 % (03/31/23 10:37 AM) Pulse Rate [55-90 bpm] 93 bpm *H* (03/31/23 10:37 AM) Blood Pressure [90-138/55-84 mm Hg] 154/84mm Hg *H* (03/31/23 12:07 PM) 119/66mm Hg (03/31/23 11:47 AM) 174/102mm Hg *H* (03/31/23 10:37 AM) Respiratory Rate [16-30 br/min] 15 br/min *L* (03/31/23 12:07 PM) 18 br/min (03/31/23 11:47 AM) 15 br/min *L* (03/31/23 10:37 AM) Temperature [96.8-100.4 DegF] 99.2 DegF (03/31/23 10:37 AM) Liters per Minute 5 L/min (03/31/23 11:47 AM) Mode of Delivery (Oxygen) Room air (03/31/23 12:07 PM) Simple face mask (03/31/23 11:47 AM) Room air (03/31/23 10:37 AM) Blood pressure sites Arm, left (03/31/23 12:07 PM) Arm, left (03/31/23 11:47 AM) Arm, left (03/31/23 10:37 AM) Temperature Route Temporal (03/31/23 10:37 AM) Dry Weight 60.5 kg (03/31/23 10:37 AM) Dry Weight Obtained Via Patient/family s tated (03/31/23 10:37 AM) Social History Social History Type Response Smoking Status Never smoker entered on: 02/05/17 Sex Note * Lory Thompson RN: PERFORM Event Display: Discharge/Transfer Note Hospital Authored Date: [id number] Nursing Discharge Note Entered On: 03/31/2023 11:56 EDT Performed On: 03/31/2023 11:55 EDT by Lory Thompson RN Nursing Discharge Note 2 Discharge Time : 03/31/2023 12:20 EDT Lory Thompson RN - 03/31/2023 12:29 EDT Discharge Level of Care at Discharge : Home/Halfway/Foster Care Patient Left Unit Via : Wheelchair Patient Accompanied Off Unit with : Responsible adult DC Instructions Provided & Signed by Pt : Yes Patient Understands D/C Instructions : Yes Patient Instructions Discharge Signed : Yes Did Pt have Specialty Bed or Wound Vac : No Lory Thompson RN - 03/31/2023 11:55 EDT * Lory Thompson RN: PERFORM Event Display: Patient Education/Instruction Authored Date: [id number] Inpatient Adult Discharge Instructions [address] [id number] Name: NAOMI MARTIN : 1945 Visit: 03/31/2023 10:05:00 Current Date: 03/31/2023 11:56 Account: [id number] Inpatient Adult Discharge Instructions We would like to thank you for allowing us to assist you with your healthcare needs. The following includes patient education materials and information regarding your injury/illness. Our entire staffstrives to provide an excellent experience for our patients and their families. PLEASE ENSURE YOU FOLLOW-UP PER THE INSTRUCTIONS BELOW! ?? YOUR OPINION IS IMPORTANT TO US! Please complete the survey you may receive by mail or email. Your feedback will be used to make improvements to the healthcare experiences of our patients and their families. Surveys are administered by [employer]. ?? If further treatment with your primary care physician or another doctor is recommended, it is important for you to keep the appointment. Call your primary care physician or return to the Emergency Department immediately if your condition worsens, fails to improve, or new symptoms develop. If you need to find a doctor, you can call [facility] for a referral at [phone] or toll free at [phone] or log in to [email or web address].. ?? You can view and manage your care through the patient portal or by using a health care magan of your choosing. [employer] is a website that allows you to securely view your medical information including your hospital discharge summary, office visit summaries, medications and follow-up visits. You can also request appointments, renew medications, and request access to your medical information using a health care magan of your choosing, or just ask a question. You can enroll at [email or web address] or register during your next office visit. You have been discharged from [facility], Patient Care Unit: ENDO. If you have any questions regarding these instructions after you leave, please call us and we will be happy to assist you. [facility] Your Care Team Attending Physician Jo-Ann CURRIE, Malachi Carpio Consulting Providers Nino CURRIE, Scott Discharging Providers Jo-Ann CURRIE, Malachi Carpio Reason for Admission SCREEN Tests Performed Below is a partial list of the tests performed during your hospitalization. You may have had other tests and procedures not included in this list. Please discuss all test results with your provider. Primary Care Provider Balaji Mercado MD Advance Directive Health Care Proxy on File Yes - Health Care Proxy Discharge Vitals Temperature: 99.2 DegF Height: 160 cm Pulse Rate:??93 bpm??High ?? Respiratory Rate: 18 br/min ?? Systolic Blood Pressure: 119 mm Hg ?? Diastolic Blood Pressure: 66 mm Hg ?? Oxygen Saturation: 100 % ?? Studies Pending All tests and labs ordered during this hospital stay have been completed unless listed below. Please discuss all pending results with your provider listed above in these instructions. ?? No incomplete studies found What to do next Instructions From Your Doctor Discharge Orders You Need to Schedule the Following Appointments Follow Up with??As Needed Discharge Medications NAOMI MARTIN :1945 Visit Date:03/31/2023 Medications: Please continue your medications until treatment is completed or stopped by your provider. Medications not listed below should be discontinued. Discuss any questions related to medications with your provider. What How Much When Instructions Next Dose Unchanged Acetaminophen (acetaminophen 325 mg oral tablet) 650 Milligram Oral Every 6 hours Unchanged Al Hydroxide/ Mg Hydroxide/ Simethicone (Maalox Plus Liquid) 30 Milliliter Oral Every 4 hours as needed for Nausea & Vomiting Unchanged Aspirin (Aspirin Tablet) 325 Milligram Oral Twice a day Unchanged Celecoxib (CeleBREX 200 mg oral capsule) 1 capsule Oral Daily Unchanged Cholecalciferol (Vitamin D3 1000 intl units oral tablet) 1 tab(s) Oral Daily Unchanged Cyclobenzaprine (cyclobenzaprine 5 mg oral tablet) 1 tab(s) Oral 3 times a day Unchanged Desonide Topical (Desonide 0.05% Topical) 1 magan Topically Daily at Bedtime Unchanged Docusate (docusate sodium 100 mg oral capsule) 1 capsule Oral Twice a day Unchanged Fluticasone (fluticasone 50 mcg inhalation powder) 50 Microgram Inhalation Daily at Bedtime Unchanged Hydrochlorothiazide (hydrochlorothiazide 12.5 mg oral capsule) 1 capsule Oral Daily Unchanged Hydromorphone (HYDROmorphone 2 mg oral tablet) 2 Milligram Oral Every 4 hours as needed for Pain , Mild Unchanged Hydromorphone (HYDROmorphone 4 mg oral tablet) 4 Milligram Oral Every 4 hours as needed for Pain , Moderate Unchanged Levothyroxine (Synthroid 0.112 mg oral tablet) 1 tab(s) Oral Daily Unchanged Lisinopril (lisinopril 20 mg oral tablet) 1 tab(s) Oral Daily Unchanged Loratadine (Claritin 10 mg oral tablet) 1 tab(s) Oral Daily at Bedtime Unchanged Metronidazole Topical (metroNIDAZOLE 0.75% topical cream) 1 magan Topically Daily in the morning Unchanged Milk of Magnesia (MOM Liquid) 30 Milliliter Oral Daily as needed for Constipation Unchanged Ocular Lubricant (Systane ophthalmic solution) 1 Drops Both eyes Daily at Bedtime as needed for for dry eyes Unchanged Polyethylene Glycol 3350 (MiraLax Powder) 17 gram Oral Daily Unchanged Pt.'s Own Meds (omeprazole) 40 Milligram Oral Daily Unchanged Senna (senna 187 mg oral tablet) 1 tab(s) Oral Daily at Bedtime Test Results Below is a partial list of the most recent Laboratory test results done prior to this discharge. You may have had other tests and procedures not included in this list. Please discuss all test resultswith your provider. Allergies (NKA means No Known Allergies) Daypro??(rash) Flonase 0.05 mg/inh spray Zithromax Z-Braulio azithromycin??(dizziness) cortisone??(rash) Problems Active Problems??(1) Easy bruisability?? Education Materials Below is the list of Educational Leaflet Providered with your Discharge Instructions. Surgery Medical Daystay Surgical Overnight Discharge Instructions?? Hemorrhoids Discharge Instructions?? Diverticulosis Discharge Instructions?? Valuables and Belongings I fully understand and agree that [facility] accepts no responsibility for all my personal property including clothing, toilet articles, radios, jewelry, dentures, hearing aids, rings, money, or any other property that is in my possession or is brought to me after admission. I understand certain valuables may be placed in a hospital safe for a short period of time. I understand that the hospital is not liable for loss or damage due to accident, fire, or other natural occurrence while said property is in the safe. I accept full responsibility for any personal property that I keep with me, and will not hold the hospital responsible in case of loss or disappearance. I acknowledge that i have been encouraged to send valuables and belongings home. ? Other Discharge Information ? Case Management Discharge Plan?? Discharge Plan?? Discharge Level of Care at Discharge: Home/Halfway/Foster Care ?? Pulmonary Rehab Status?? Pulmonary Rehab Discharge Status?? Respiratory Rate: 18 br/min ? Common Emergency Awareness Tips IS IT A STROKE? Act FAST and Check for these signs: FACE Does the face look uneven? ARM Does one arm drift down? SPEECH Does their speech sound strange? TIME Call at any sign of stroke ?? Heart Attack Signs Chest discomfort: Most heart attacks involve discomfort in the center of the chest and lasts more than a few minutes, or goes away and comes back. It can feel like uncomfortable pressure, squeezing, fullness or pain. Discomfort in upper body: Symptoms can include pain or discomfort in one or both arms, back, neck, jaw or stomach. Shortness of breath: With or without discomfort. Other signs: Breaking out in a cold sweat, nausea, or lightheaded. Remember, MINUTES DO MATTER. If you experience any of these heart attack warning signs, call to get immediate medical attention! ?? Smoking can increase your chances of developing chronic health problems and can cause harmful effects to other family members in your house. If you smoke, you are strongly encouraged to quit. Please call [facility] Link at [phone] or [phone]) or log in to [email or web address] for referrals to smoking cessation programs. ?? 479 Suicide & Crisis Lifeline is available 26/04 if you or someone you know needs to find a reason to keep living. By calling 328 you'll be connected to a skilled, trained counselor at a crisis center in your area. INPATIENT DISCHARGE INSTRUCTIONS SIGNATURE PAGE NAOMI MARTIN Location:[facility] Registration Date and Time:03/31/2023 10:05 EDT Primary Care Physician: Balaji Mercado MD, Attending Physician: Jo-Ann CURRIE, Malachi Carpio, I NAOMI MARTIN, have received the above patient education materials/instructions and have verbalized understanding. If ambulance or transport services are being used I further acknowledge being given a choice of service. ?? If you need to contact me, please call me at this number: . Patient/Foot Press Operator Name: Patient/Foot Press Operator Signature: Relationship to Patient: Witness Name/Signature: Date: * Lory Thompson RN: PERFORM Event Display: Patient Education Leaflets Authored Date: [id number] Surgery Medical Daystay Surgical Overnight Discharge Instructions ?? 295 Medical Daystay/Surgical Overnight Discharge Instructions ? Since your coordination and judgment may be altered by medication and/or anesthesia, a responsible adult must drive you home from the hospital. ? If you have received medication for pain or sedation while under our care, you should not drive, operate machinery, drink alcohol, or sign any legal documents for 24 hours.?? You should have someone with you at home tonight. ? Remain at home the day of discharge.?? You may be up and about unless otherwise instructed by your physician. ? You may resume your daily prescription medication schedule.?? Any depressant medication should be avoided for 24 hours unless otherwise instructed by your surgeon or anesthesiologist. ? Call your physician for a follow-up appointment.? If you experience unusual or severe pain not relied by your pain medication, excessive bleedingor drainage, persistent nausea and vomiting, excessive swelling or redness, foul odor from incisionsite or fever over 100.6F, you need to call your physician. ? A follow-up phone call by a nurse will be made the day after your procedure.?? If you have stayed with us over night, you will not be receiving a follow-up phone call. ? Nausea and vomiting are a common side effect of prescription pain medication.?? We recommend that pills are not taken on an empty stomach.?? While taking any prescription pain medication you should not drive or drink alcohol. ? * Lory Thompson RN: PERFORM Event Display: Patient Education Leaflets Authored Date: [id number] Hemorrhoids Discharge Instructions ?? 672 ??Hemorrhoids Discharge Instructions ??You must carefully read the Consumer Information Use and Disclaimer below in order to understand and correctly use this information?? About this topic Hemorrhoids are swollen veins in the rectum. Your rectum is where stool leaves your body. You may be able to see or feel your hemorrhoids outside of your body, but some hemorrhoids are inside of yourrectum and cannot be seen. Hemorrhoids can cause itching, pain, and bleeding. Being constipated or having hard stools can make your hemorrhoids worse.?? What care is needed at home? Ask your doctor what you need to do when you go home. Make sure??you ask questions if you do not understand what the doctor says. This??way you will know what you need to do. ??? Soak your bottomin a few inches of warm water for 10 to 15 minutes??at a time. You can do this 2 to 3 times each day. Do not add soap,??bubble bath, or anything to the water. ??? Use ozyi-ank-fkfbfrn medicines to treat your hemorrhoids. These??include ointments and creams to help with pain and swelling. You can??also use a product like witch errol to help dry out the skin in the area. ??? To help with constipation: ??? Use stool softeners when needed. ??? Eat high-fiber foods. These include whole grains, fruits, and??vegetables. ??? Drink plenty of water and other fluids each day. This helps to??keep your stools soft. ??? Set a regular schedule to try and have a bowel movement. Do??not ignore the urge to go to the bathroom. Don???t hold it in. ??? Give yourself plenty of time to have a bowel movement, but do not linger on the toilet either, by sitting and reading for a long time. ??? Do mild exercise each day like taking a walk. ??? Avoid heavy lifting or straining while the hemorrhoid is healing. ?? What follow-up care is needed? If your problem does not get better, other care may be needed. Your doctor may ask you to make visits to the office to check on your progress. Be sure to keep these visits.?? What drugs may be needed? The doctor may order drugs to: ??? Help with pain and swelling ??? Ease itching ??? Soften stools ?? Will physical activity be limited? Working out can help with digestion. It might help keep you from having hard stools. Ask your doctor about the best kind of exercise for you. ?? What problems could happen? You may have very bad bleeding. ??? Sometimes, treatments do not work. Some hemorrhoids are very??large. You might need surgery for either of these. ?? When do I need to call the doctor? You have a lot of bleeding from your rectum. ??? Your bowel movement looks like tar. ??? You are not able to pass stool because of pain from your??hemorrhoids. ??? Your pain gets worse and is nothelped by eexq-gdz-anyxbxx??medicines, warm water, or your home care. ??? You have a fever of 100.4??F (38??C) or higher. ?? Teach Back: Helping You Understand The Teach Back Method helps you understand the information we are giving you. After you talk with the staff, tell them in your own words what you learned. This helps to make sure the staff has described each thing clearly. It also helps to explain things that may have been confusing. Before going home, make sure you can do these: ??? I can tell you about my condition. ??? I can tell you what may help ease my pain. ??? I can tell you what I will do if I have blood in my rectum. Where can I learn more?[employer]https://familydoctor.or g/condition/hemorrhoids/National Digestive Disease Information Clearinghousehttps://www.niddk.nih.go v/health-information/digestive-diseases/hemorrhoids/definition-factsLast Reviewed Wdml9333-60-54Dehkeghl Information Use and Disclaimer:This generalized information is a limited summary of diagnosis,treatment, and/or medication information. It is not meant to be comprehensive and should be used asa tool to help the user understand and/or assess potential diagnostic and treatment options. It does NOT include all information about conditions, treatments, medications, side effects, or risks thatmay apply to a specific patient. It is not intended to be medical advice or a substitute for the medical advice, diagnosis, or treatment of a health care provider based on the health care provider's examination and assessment of a patient???s specific and unique circumstances. Patients must speak with a health care provider for complete information about their health, medical questions, and treatment options, including any risks or benefits regarding use of medications. This information does not endorse any treatments or medications as safe, effective, or approved for treating a specific patient. [employer] and its affiliates disclaim any warranty or liability relating to this information or the use thereof. The use of this information is governed by the Terms of Use, available at??htt ps://www.[employer].Myrl/en/know/lhfdkcfr-oeddfejqrwpvt-lnxnyUrhr Updated 11/26/21? * Lory Thompson RN: PERFORM Event Display: Patient Education Leaflets Authored Date: [id number] Diverticulosis Discharge Instructions ?? 680 Diverticulosis Discharge Instructions ??You must carefully read the Consumer Information Use and Disclaimer below in order to understand and correctly use this information?About this topicDiverticulosis is a problem of the large bowel or colon. The wall of the bowel becomes weak and pushes outward. They form balloon-like pouches called diverticula or tics. When you have hard stool, you strain to have a bowel movement. This raises the pressure in the bowel and causes pouches or bulges to form. Most often, they do not cause a problem. If they become infected, you have diverticulitis. If you have both bleeding and infection, it is diverticular disease.??What care is needed at home? Ask your doctor what you need to do when you go home. Make sure??you ask questions if you do not understand what the doctor says. ??? Eat more whole grains, vegetables, and fruits. ??? Do not wait to have a bowel movement. Go as soon as you have the??urge. ??? Drink 8 to 10 glasses of water each day. Talk to your doctor if you are??drinking less fluids due to a health problem. ??? Be active. Walk,garden, or do something active for 30 minutes or more on most days of the week. ??What follow-up care is needed?Your doctor may ask you to make visits to the office to check on your progress. Be sure to keep these visits.??What drugs may be needed?Most often with diverticulosis you will not need to take any drugs.??Will physical activity be limited?When you are in pain, you may need to rest in bed. To ease the pain, use a heat compress on your belly. This should last only for a few days.??What changes to diet are needed?Talk to your doctor about any changes you need to make to your diet.? You do not need to avoid seeds, nuts, corn, or other similar foods. ??? You will need to eat food rich in fiber and drink more water. o Eat 5 or more servings of fresh fruits and vegetables every day. o Eat 6 or more servings of whole-wheat grain breads and??cereals. ??? Try toget 25 to 30 grams of fiber every day. Read the labels to??learn how much fiber is in foods. ??? Donot drink coffee, tea, or beer, wine, and mixed drinks (alcohol). ??What problems could happen?You may develop diverticulitis, which may cause:? Pockets or pouches in your bowel may be infected or filled with pus. ??? Hole or tear in your bowel ??? Part of your bowel to become narrow ??? You to need surgery ??What can be done to prevent this health problem?The best way to keep from having diverticulosis is to keep your bowel movements soft and normal. To keep more pouches from forming:? Talk with your doctor about adding an rxeb-sji-zbtmytj (OTC) fiber??product to keep your stools soft. ??? Limithow much pain drugs you take. Overuse of some pain drugs can??cause hard stools; talk with your doctor. ??? When do I need to call the doctor? Signs of infection. These include a fever of 100.4??F (38??C) or higher,??chills. ??? Mild pain or cramping in the lower part of the belly ??? A feelingof bloating in the belly ??? Belly pain that gets worse ??? Blood in your stool ??? Upset stomach or throwing up ??? Stools get too loose or too hard ??? Long-term hard stools ??Teach Back: Helping You UnderstandThe Teach Back Method helps you understand the information we are giving you. After you talk with the staff, tell them in your own words what you learned. This helps to make sure the staff has described each thing clearly. It also helps to explain things that mayhave been confusing. Before going home, make sure you are able to do these:? I can tell you abo ut my condition. ??? I can tell you what changes I need to make with my diet or drugs. ??? I can tell you what I will do if I have pain or cramping in my lower belly??or I have more belly pain. ??Where can I learn more???FamilyDoctor.orghttp://familydoctor.org/familydoctor/en/diseases-conditio ns/div erticular-disease.htmlNHShttps://www.nhs.uk/conditions/hrxedmluhsmc-imcfvch-eba- diverticulitis/LastReviewed Oxob6067-36-61Yiqassvv Information Use and Disclaimer:This generalized information is a limited summary of diagnosis, treatment, and/or medication information. It is not meant to be comprehensive and should be used as a tool to help the user understand and/or assess potential diagnostic and treatment options. It does NOT include all information about conditions, treatments, medications, side effects, or risks that may apply to a specific patient. It is not intended to be medical adviceor a substitute for the medical advice, diagnosis, or treatment of a health care provider based on the health care provider's examination and assessment of a patient???s specific and unique circumstances. Patients must speak with a health care provider for complete information about their health, medical questions, and treatment options, including any risks or benefits regarding use of medications. This information does not endorse any treatments or medications as safe, effective, or approved for treating a specific patient. [employer]. and its affiliates disclaim any warranty or liabilityrelating to this information or the use thereof. The use of this information is governed by the Terms of Use, available at??[email or web address] Updat ed 11/26/21? Patient Care team information Care Team Personnel Name: Balaji Mercado MD Position: [facility] Outreach Member Role: PCP Address: Address: [address] [place] [address] [place] [address]- Name: Rosalina Fong RN Position: [facility] RN Member Role: Primary Care Nurse Name: Isabel Maria RN Position: [facility] RN Member Role: Primary Care Nurse Care Team Related Persons Name: ROBERT MARTIN Address: home [address] [place] [address] Name: LUIS HARRELL Address: [address] [place] [address]
--- OUTSIDE RECORDS SUMMARY | 2024-04-08 11:31 | XMS_ITS | Continuity of Care Document ---
Author Organization [facility] ter Address [address] [place] [address]- Care Team Providers Care Stylist Assistant Name Role Phone Balaji Mercado MD Primary Care Physician Encounter [facility] Date(s): 07/28/23 - 09/16/[address] [address]- Attending Physician: Susy Rivera MD Admitting Physician: Susy Rivera MD Referring Physician: Susy Rivera MD Allergies, Adverse Reactions, Alerts Substance Reaction Severity Status azithromycin dizziness Active cortisone rash Active Zithromax Z-Braulio Active Daypro rash Active Flonase 0.05 mg/inh [...] 0, 0, 03/11/06 10:10:58, Print SNOW Number, [id number], Constant Indicator Start Date: 03/11/06 Status: Ordered [...] Team Personnel Name: Balaji Mercado MD Position: [facility] Outreach Member Role: PCP Address: Address: [address] [place] [address] Internal Medicine [place], [place] [address] Name: Rosalina Fong RN Position: S SN RN Member Role: Primary Care Nurse Name: Isabel Maria RN Position: S RN Member Role: Primary Care Nurse Care Team Related Persons Name: RBOERT MARTIN Address: home [address] [place] [address] Name: LUIS HARRELL Address: [address] [address]
--- OUTSIDE RECORDS SUMMARY | 2024-04-08 11:31 | XMS_ITS | Continuity of Care Document ---
Author Organization [facility] Address [address] [place] [address]- Care Team Providers Care Credit Representative Name Role Phone Balaji Mercado MD Primary Care Physician Encounter [facility] Date(s): 03/26/23 - 04/25/23 [facility] [address] [place] [address]- [place] Allergies, Adverse Reactions, Alerts Substance Reaction [...] 0, 0, 03/11/06 10:10:58, Print SNOW Number, [id number], Constant Indicator Start Date: 03/11/06 Status: Ordered [...] Team Personnel Name: Balaji Mercado MD Position: [facility] Outreach Member Role: PCP Address: Address: [address] [place] [address] Internal Medicine [address] Name: Rosalina Fong RN Position: [facility] RN Member Role: Primary Care Nurse Name: Isabel Maria RN Position: [facility] RN Member Role: Primary Care Nurse Care Team Related Persons Name: ROBERT MARTIN Address: home [address] [place] [address] Name: LUIS HARRELL Address: [address] [place] [address]
--- OUTSIDE RECORDS SUMMARY | 2024-04-08 11:31 | XMS_ITS | Continuity of Care Document ---
Author Organization [facility] Address [address] [place] [address]- Care Team Providers Care Web Applications Programmer Name Role Phone Balaji Mercado MD Primary Care Physician Encounter [facility] Date(s): 03/29/23 - 04/28/23 [facility] [address] [place] [address]- [place] Allergies, Adverse Reactions, Alerts Substance Reaction [...] 0, 0, 03/11/06 10:10:58, Print SNOW Number, [id number], Constant Indicator Start Date: 03/11/06 Status: Ordered [...] Team Personnel Name: Balaji Mercado MD Position: [facility] Outreach Member Role: PCP Address: Address: [address] [place] [address] Internal Medicine [address] Name: Rosalina Fong RN Position: [facility] RN Member Role: Primary Care Nurse Name: Isabel Maria RN Position: [facility] RN Member Role: Primary Care Nurse Care Team Related Persons Name: ROBERT MARTIN Address: [address] [place] [address] Name: LUIS HARRELL Address: [address] [place] [address]
--- OUTSIDE RECORDS SUMMARY | 2024-04-08 11:31 | XMS_ITS | Continuity of Care Document ---
Author Organization [facility] Address [address] [place] [address] ve [address] [place] [address]- Care Team Providers Care Marble Cleaner Name Role Phone Balaji Mercado MD Primary Care Physician [phone] Encounter [facility] Date(s): 02/22/24 - 02/29/[address] [place], [place] [address] Attending Physician: Ellen Gonsales MD Referring Physician: Balaji Mercado MD Allergies, Adverse Reactions, Alerts Substance Reaction Severity Status azithromycin dizziness Active cortisone rash Active Daypro rash Active Flonase 0.05 mg/inh spray Ac tive Zithromax Z-Braulio Active Medications acetaminophen 325 mg oral tablet 650 mg, By Mouth, Every 6 hours, Refills 0, Maintenance, 06/02/17 7:26:36 Start Date: 06/02/17 Status: Ordered albuterol (OP) 0 Refills, Maintenance, 2 Start Date: 02/22/24 Status: Ordered [place] Saline 0.65% nasal gel 1 sprays, 4 times a day, 0 Refills, Maintenance, 02/22/24 14:58:00 EDT, Partial fill upon patient request if the prescription is for a schedule II opioid drug. Start Date: 02/22/24 Status: Ordered CeleBREX 200 mg oral capsule 1 capsule = 200 mg, By Mouth, Daily, # 30 capsule, 0 Refills, Maintenance, 05/31/17 2:11:30, Capsule Start Date: 05/31/17 Status: Ordered cyclobenzaprine 5 mg oral tablet [...] 02/05/17 10:26:10 Start Date: 02/05/17 Status: Ordered levothyroxine 112 mcg (0.112 mg) [...] 02/05/17 10:24:23 Start Date: 02/05/17 Status: Ordered metroNIDAZOLE 0.75% topical cream 1 application, Topically, Daily in AM, # 45 Gm, 0 Refills, Maintenance, 05/31/17 2:10:28, Cream Start Date: 05/31/17 Status: Ordered Synthroid 0.112 mg oral tablet 0.112, mg, 1, tablet, By Mouth, Daily, 0, 0, 03/11/06 10:10:58, Print SNOW Number, [id number], Constant Indicator Start Date: 03/11/06 Status: Ordered [...] Easy bruisability Confirmed Active Hemorrhoids Confirmed Active Vital Signs Most recent to oldest [Reference Range]: 1 Height 160 cm (02/22/24 2:52 PM) Weight 56.8 kg (02/22/24 2:52 PM) Pulse Rate [55-90 bpm] 107 bpm *H* (02/22/24 2:52 PM) Body Mass Index [18.5-24.99 kg/m2] 22.19 kg/m2 (02/22/24 2:52 PM) Blood Pressure [90-138/55-84 mm Hg] 186/ 82mm Hg *H* (02/22/24 2:52 PM) Respiratory Rate [16-30 br/min] 17 br/mi n (02/22/24 2:52 PM) Temperature [96.8-100.4 DegF] 98.1 DegF (02/22/24 2:52 PM) Temperature Route Temporal (02/22/24 2:52 PM) Social History Social History Type Response Smoking Status Never smoker entered on: 02/05/17 Sex Patient Care team information Care Team Personnel Name: Balaji Mercado MD Position: [facility] Outreach Member Role: PCP Address: Address: [address] [place] [address] Internal Medicine [address] Name: Rosalina Fong RN Position: [facility] SN RN Member Role: Primary Care Nurse Name: Isabel Maria RN Position: [facility] Office Staff Member Role: Primary Care Nurse Name: Mandi Sarmiento Position: [facility] Outreach Member Role: Lifetime Consulting Physician Care Team Related Persons Name: RICHMONDJASONROBERT Address: [address] [address] Name: LUIS HARRELL Address: [address] [address]
--- OUTSIDE RECORDS SUMMARY | 2024-04-08 11:31 | XMS_ITS | Continuity of Care Document ---
Author Organization [facility] Address [address] [place] [address] Dr [address] [place] [address]- Care Team Providers Care Planning Intern Name Role Phone Balaji Mercado MD Primary Care Physician Encounter [facility] [place] Date(s): 03/03/24 - 04/02/[address] [place], [place] [address] Allergies, Adverse Reactions, Alerts Substance Reaction Severity [...] EDT, Aerosol Start Date: 03/23/24 Status: Ordered [place] Saline 0.65% nasal gel 1 sprays, 4 [...] 15:29:00 EDT, Aerosol, Route to Pharmacy Electronically, [id number], [facility] #[id number], 160, cm, 03/23/24 14:45:00 EDT... Start Date: 03/23/24 Stop Date: 07/21/24 Status: Ordered Synthroid 0.112 mg oral tablet 0.112, mg, 1, tablet, By Mouth, Daily, 0, 0, 03/11/06 10:10:58, Print SNOW Number, [id number], Constant Indicator Start Date: 03/11/06 Status: Ordered [...] Team Personnel Name: Balaji Mercado MD Position: [facility] Outreach Member Role: PCP Address: Address: [address] [place] [address] Internal Medicine [address] Name: Rosalina Fong RN Position: [facility] SN RN Member Role: Primary Care Nurse Name: Isabel Maria RN Position: [facility] Office Staff Member Role: Primary Care Nurse Name: aMndi Sarmiento Position: [facility] Outreach Member Role: Lifetime Consulting Physician Care Team Related Persons Name: FAUSTINA MARTINFER Address: [address] [address] Name: LUIS HARRELL Address: [address] [address]
--- OUTSIDE RECORDS SUMMARY | 2024-04-08 11:31 | XMS_ITS | Continuity of Care Document ---
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 Hemorrhoids(Discharge Diagnosis) - 11/29/23 Attending Physician: Dru CURRIE, Ellen Baker Referring Physician: Susy Rivera MD Allergies, Adverse [...] 0, 0, 03/11/06 10:10:58, Print SNOW Number, [id number], Constant Indicator Start Date: 03/11/06 Status: Ordered [...] Easy bruisability Confirmed Active Hemorrhoids Confirmed Active Diagnosis Diagnosis Type Effective Dates Health Status Clinical Service Informant Recto-vaginal fistula Discharge Diagnosis 11/29/23 Hemorrhoids Discharge Diagnosis 11/29/23 Vital Signs Most recent to oldest [Reference Range]: 1 Height 160 cm (11/29/23 1:59 PM) Weight 59.9 kg (11/29/23 1:59 PM) Pulse Rate [55-90 bpm] 195 bpm *H* (11/29/23 1:59 PM) Body Mass Index [18.5-24.99 kg/m2] 23.4 kg/m2 (11/29/23 1:59 PM) Systolic Blood Pressure [90-138 mm Hg] 1 03 mm Hg (11/29/23 1:59 PM) Respiratory Rate [16-30 br/min] 70 br/mi n *H* (11/29/23 1:59 PM) Temperature [96.8-100.4 DegF] 98 DegF (11/29/23 1:59 PM) Blood pressure sites Arm, right (11/29/23 1:59 PM) Temperature Route Temporal (11/29/23 1:59 PM) Social History Social History Type Response Smoking Status Never smoker entered on: 02/05/17 Sex Patient Care team information Care Team Personnel Name: Balaji Mercado MD Position: [facility] Outreach Member Role: PCP Address: Address: [address] [place] [address] Internal Medicine [address] Name: Rosalina Fong RN Position: [facility] SN RN Member Role: Primary Care Nurse Name: Isabel Maria RN Position: [facility] SN RN Member Role: Primary Care Nurse Name: Mandi Sarmiento Position: [facility] Outreach Member Role: Lifetime Consulting Physician Care Team Related Persons Name: ROBERT MARTIN Address: [address] [address] Name: LUIS HARRELL Address: [address] [address]
--- OUTSIDE RECORDS SUMMARY | 2024-04-08 11:31 | XMS_ITS | Continuity of Care Document ---
Author Organization [facility] Address [address] [place] [address] D[address] [place] [address]- Care Team Providers Care Test Developer Name Role Phone Balaji Mercado MD Primary Care Physician [phone] Encounter [facility] Date(s): 01/04/24 - 02/03/24 [facility] [address] [place], [place] [address] Allergies, Adverse Reactions, Alerts Substance Reaction Severity [...] 0, 0, 03/11/06 10:10:58, Print SNOW Number, [id number], Constant Indicator Start Date: 03/11/06 Status: Ordered [...] Team Personnel Name: Balaji Mercado MD Position: [facility] Outreach Member Role: PCP Address: Address: [address] [place] [address] Internal Medicine [address] Name: Rosalina Fong RN Position: [facility] SN RN Member Role: Primary Care Nurse Name: Isabel Maria RN Position: [facility] [place] Office Staff Member Role: Primary Care Nurse Name: Mandi Sarmiento Position: [facility] Outreach Member Role: Lifetime Consulting Physician Care Team Related Persons Name: ROBERT MARTIN Address: home [address] [place] [address] Name: LUIS HARRELL Address: [address] [address]
--- OUTSIDE RECORDS SUMMARY | 2024-04-08 11:31 | XMS_ITS | Continuity of Care Document ---
Author Organization [facility] Address [address] [place] [address] ve [address] [place] [address]- Care Team Providers Care Test Manager Name Role Phone Balaji Mercado MD Primary Care Physician Encounter [facility] Date(s): 02/23/24 - 03/24/[address] [place], [place] [address] Allergies, Adverse Reactions, Alerts Substance Reaction Severity Status azithromycin dizziness Active cortisone rash Active Flonase 0.05 mg/inh spray Ac tive Zithromax Z-Braulio Active Daypro rash Active Medications acetaminophen 325 mg oral tablet [...] EDT, Aerosol Start Date: 03/23/24 Status: Ordered [place] Saline 0.65% nasal gel 1 sprays, 4 [...] 15:29:00 EDT, Aerosol, Route to Pharmacy Electronically, [id number], [facility] #[id number], 160, cm, 03/23/24 14:45:00 EDT... Start Date: 03/23/24 Stop Date: 07/21/24 Status: Ordered Synthroid 0.112 mg oral tablet 0.112, mg, 1, tablet, By Mouth, Daily, 0, 0, 03/11/06 10:10:58, Print SNOW Number, [id number], Constant Indicator Start Date: 03/11/06 Status: Ordered [...] Team Personnel Name: Balaji Mercado MD Position: [facility] Outreach Member Role: PCP Address: Address: [address] [place] [address] Internal Medicine [address] Name: Rosalina Fong RN Position: [facility] SN RN Member Role: Primary Care Nurse Name: Isabel Maria RN Position: [facility] [place] Office Staff Member Role: Primary Care Nurse Name: Mandi Sarmiento Position: [facility] Outreach Member Role: Lifetime Consulting Physician Care Team Related Persons Name: VERONICA ROBERT Address: home [address] [place] [address] Name: LUIS HARRELL Address: [address] [address]
--- OUTSIDE RECORDS SUMMARY | 2024-04-08 11:31 | XMS_ITS | Continuity of Care Document ---
Author Organization [facility] Address [address] [place] [address]- Care Team Providers Care Electric Vehicle Electrician Name Role Phone Balaji Mercado MD Primary Care Physician [place] [facility] 02/16/23 - 03/18/23 [facility] [address] [place] [address]- [place] Allergies, Adverse Reactions, Alerts Substance Reaction [...] each, 0 Refills, Maintenance, 09/14/22 13:05:00 EST, [facility] #[id number], ok to sub for any gallon prep, [...] 0, 0, 03/11/06 10:10:58, Print SNOW Number, [id number], Constant Indicator Start Date: 03/11/06 Status: Ordered [...] Team Personnel Name: Balaji Mercado MD [facility] Outreach Member Role: PCP Address: Address: [address] [place] [address] Internal Medicine [place], [place] [address] Name: Rosalina Fong RN Position: S SN RN Member Role: Primary Care Nurse Name: Isabel Maria RN Position: [facility] RN Member Role: Primary Care Nurse Care Team Related Persons Name: ROBERT MARTIN Address: [address] [place] [address] Name: LUIS HARRELL Address: [address] [place] [address]
--- OUTSIDE RECORDS SUMMARY | 2024-04-08 11:31 | XMS_ITS | Continuity of Care Document ---
Author Organization [facility] Address [address] [place] [address]- Care Team Providers Care Space Systems Operations Superintendent Name Role Phone Balaji Mercado MD Primary Care Physician Encounter [facility] Date(s): 02/01/23 - 03/03/23 [facility] [address] [place] [address]- [place] Allergies, Adverse Reactions, Alerts Substance Reaction [...] each, 0 Refills, Maintenance, 09/14/22 13:05:00 EST, [facility] #[id number], ok to sub for any gallon prep, [...] 0, 0, 03/11/06 10:10:58, Print SNOW Number, [id number], Constant Indicator Start Date: 03/11/06 Status: Ordered [...] CENTER Outreach Member Role: PCP Address: Address: [address] [place] [address] Internal Medicine [place], [place] [address] Name: Rosalina Fong RN Position: S SN RN Member Role: Primary Care Nurse Name: Isabel Maria RN Position: [facility] RN Member Role: Primary Care Nurse Care Team Related Persons Name: ROBERT MARTIN Address: [address] [place] [address] Name: LUIS HARRELL Address: [address] [place] [address]
[2024-04-08 11:33] LABS: B Type Natriuretic Peptide 50 pg/mL (<100)
[2024-04-08 11:36] LABS: Troponin-I High Sensitivity 8.5 ng/L (<3.5-17.0)
--- NOTE | 2024-04-08 11:40 | PC.NURSE ---
a&ox4. vss and up to date. nsr/sinus tachy on the monitor - HR between 95-110bpm. pt presents to the ED s/ worsening dyspnea on exertion/productive cough x 2 days. pt recently admitted to copd exacerbation 2 months ago. pt admitted for 3 days. pt also verbalizing increase in LE bilaterally. 2+ pitting edema noted in LE bilaterally. sob/wob noted. pt positioned upright to promote patent airway. )2% on RA wnl. respirations even/labored. pt receiving breathing treatment via RT. 20gIV placed in the left AC - labs obtained sent/to lab. plan of care ongoing. call giraldo placed within reach.
--- NOTE | 2024-04-08 11:55 | PC.NURSE ---
pt verbalizing increased sob s/p receiving breathing treatment via RT. on 97% on RA. sob/wob noted. pt placed on 2L via NC for supplemental oxygen to promote comfort. pt verbalizing slight relief. wob decreased at this time.
--- NOTE | 2024-04-08 13:26 | PM.IMHP ---
History of Present Illness Date of Service: 04/08/24 Attending physician on admission: Kadeem Calix Chief Complaint: sob, wheezing, cough 79-year-old female with history of osteopenia, hypothyroidism, hyperlipidemia, hypertension, rheumatoid arthritis on hydroxychloroquine, and rectovaginal fistula presents to the ED earlier today for evaluation of shortness of breath and wheezing ongoing for 2 days. She also reports weakness, lightheadedness, headache and productive cough with yellow/brown sputum production. Also endorses orthopnea that started last night. She also reports several episodes of epistaxis that occurred 3 days ago lasting up to 20 minutes but has not had recurrence. She denies fevers, chills, sore throat, nasal congestion, abdominal pain, nausea, vomiting, diarrhea, syncope, chest pain.. She has had recurrent episodes of acute bronchospasm and has not been definitively diagnosed with COPD but did have CTA of the chest performed at our facility 02/2024 which showed diffuse emphysematous changes. She did follow-up with pulmonology through [facility] and was prescribed Spiriva and recommended to follow-up. She had an echo performed on 04/03 at [facility] which showed normal LV systolic function and grade 1 diastolic dysfunction without any significant valvular disease. Has second hand smoke exposure from childhood. 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 No leukocytosis. Renal function baseline, electrolytes normal the exception of what appears to be a chronic hyponatremia of 130 and chloride 90. Troponin within normal limits. BNP 50. Chest x-ray shows blunting of the costophrenic angles possibly reflecting small bilateral pleural effusions but otherwise clear lungs. In the ED, received IV lasix, methylprednisolone, duone, and doxy without much improvement. Review of Systems Review of Systems: Yes all other systems are reviewed and are negative [facility] Medical History Osteopenia Hypothyroid HLD (hyperlipidemia) HTN (hypertension) Rheumatoid arthritis Surgical History S/P total left hip arthroplasty S/P total right hip arthroplasty Social History Household Members: Family Housing: House Housing Other:: 2 floors Do you presently have visiting nurse or other home services: No Patient Tobacco Use Status: Never used Tobacco e-Cigarette/Vaping Use: Never Used Advance Directives: No Advance Directives Information Provided: No Do you have a plan to hurt others: No Plan service: No Meds Allergies Allergy/AdvReac Type Severity Reaction Status Date / Time oxaprozin [Daypro] Allergy Unknown Rash Verified 04/08/24 10:38 alendronate sodium Allergy Unknown Verified 04/08/24 10:38 amlodipine Allergy Swelling Verified 04/08/24 10:38 amoxicillin Allergy Diarrhea Verified 04/08/24 10:38 azithromycin Allergy Rash Verified 04/08/24 10:38 carvedilol Allergy Joint Pain Verified 04/08/24 10:38 hydrochlorothiazide Allergy Unknown Verified 04/08/24 10:38 labetalol Allergy Swelling Verified 04/08/24 10:38 nitrofurantoin Allergy Gastrointestinal Verified 04/08/24 10:38 Upset Sulfa (Sulfonamide Allergy Gastrointestinal Verified 04/08/24 10:38 Antibiotics) Upset sulfamethoxazole Allergy Gastrointestinal Verified 04/08/24 10:38 [From Upset Sulfamethoxazole-Trimethoprim] trimethoprim Allergy Gastrointestinal Verified 04/08/24 10:38 [From Upset Sulfamethoxazole-Trimethoprim] Caltrate 600 Allergy Unknown Unknown Uncoded 03/01/24 06:43 Flonase Allergy Unknown Unknown Uncoded 03/01/24 06:43 Active Medications: Current Medications Acetaminophen (Acetaminophen 325 Mg Tablet) 650 mg PO Q6H PRN PRN Reason: Pain, Mild (Pain Scale 1-3), fever or headache Albuterol/Ipratropium (Albuterol/Iprat 2.5/0.5mg 3 Ml Ampul.Neb) 3 ml INHALE RQ4H WHILE AWAKE JAYDA Calcium Carbonate (Calcium Carbonate 750 Mg Tab.Chew) 750 mg PO Q4H PRN PRN Reason: Heartburn Enoxaparin Sodium (Enoxaparin Sodium 40 Mg/0.4 Ml Syringe) 40 mg SUBCUT Q24H JAYDA Guaifenesin/Codeine Phosphate (Guaifen/Codeine Sf 200/20/10ml 10 Ml Liquid) 5 ml PO Q4H JAYDA Magnesium Hydroxide (Milk Of Magnesia 30 Ml Oral.Susp) 30 ml PO DAILY PRN PRN Reason: Constipation Melatonin (Melatonin 3 Mg Tablet) 6 mg PO BEDTIME PRN PRN Reason: Insomnia Methylprednisolone Sodium Succinate (Methylprednisolone Sod Succ 40 Mg/Ml Vial) 40 mg IVPUSH Q12H JAYDA Sodium Chloride (0.9 % Sodium Chloride Flush 3 Ml Syringe) 3 ml IVFLUSH QSHIFT JAYDA Home Medications ?Medication ?Instructions ?Recorded ?Confirmed ?Last Taken ?Type betamethasone dipropionate 0.05 % 1 appl topical BID PRN Rash 09/09/23 04/08/24 Unknown History topical cream loratadine 10 mg tablet 10 mg PO BEDTIME 09/09/23 04/08/24 Unknown History metronidazole 0.75 % topical cream 1 appl topical BID 09/09/23 04/08/24 Unknown History olmesartan 40 mg tablet 40 mg PO DAILY 09/09/23 04/08/24 04/08/24 History Lactobacillus rhamnosus GG 10 1 cap PO BID 03/01/24 04/08/24 Unknown History billion cell capsule (Culturelle) albuterol sulfate 90 mcg/actuation 2 puff inhalation Q6H PRN wheezing 03/01/24 04/08/24 04/08/24 History aerosol inhaler celecoxib 200 mg capsule (Celebrex) 200 mg PO BID 03/01/24 04/08/24 Unknown History cholecalciferol (vitamin D3) 25 25 mcg PO DAILY 03/01/24 04/08/24 Unknown History mcg (1,000 unit) tablet (Vitamin D3) clobetasol 0.05 % topical cream 1 appl topical DAILY PRN Rash 03/01/24 04/08/24 Unknown History cocoa butter-zinc oxide 76 %-10 % 1 supp HI BEDTIME 03/01/24 04/08/24 Unknown History rectal suppository (Calmol-4) fluticasone propionate 50 2 spray intranasal DAILY 03/01/24 04/08/24 Unknown History mcg/actuation nasal spray,suspension hydroxychloroquine 200 mg tablet 200 mg PO Q OTHER DAY 03/01/24 04/08/24 04/07/24 History hydroxychloroquine 200 mg tablet 400 mg PO Q OTHER DAY 03/01/24 04/08/24 02/28/24 History levothyroxine 112 mcg tablet 112 mcg PO SUMOTUWETHFR 03/01/24 04/08/24 Unknown History albuterol sulfate 2.5 mg/3 mL 2.5 mg inhalation Q6H PRN 04/08/24 04/08/24 Unknown History (0.083 %) solution for nebulization Shortness Of Breath Or Wheezing budesonide-formoterol HFA 80 2 puff inhalation BID 04/08/24 04/08/24 04/06/24 History mcg-4.5 mcg/actuation aerosol inhaler (Symbicort) furosemide 20 mg tablet 20 mg PO DAILY 04/08/24 04/08/24 04/08/24 History multivitamin 2 tab PO DAILY 04/08/24 04/08/24 Unknown History mupirocin 2 % topical ointment 1 appl topical BID-TID PRN 04/08/24 04/08/24 Unknown History infection sodium chloride-aloe vera nasal 1 spray intranasal BID PRN Dry 04/08/24 04/08/24 Unknown History spray ([place] Saline Gel nasal spray) Nasal Passages Physical Exam Vital Signs and Narrative: Vital Signs: Last Vital Signs Pulse 94 04/08/24 11:33 Resp 18 04/08/24 11:33 BP 145/73 H 04/08/24 11:33 Pulse Ox 95 04/08/24 11:33 O2 Del Method Room Air 04/08/24 11:33 BMI result Body Mass Index 23.8 Constitutional - Awake and Alert, No apparent distress Eyes - PERRLA, EOMI Cardiovascular - S1S2, RRR, No edema Respiratory - Normal lung expansion, Normal respiratory effort, No respiratory distress, diffuse expiratory wheezing Gastrointestinal - NT / ND; +BS; No rebound or guarding Extremities - no calf tenderness bilaterally, no swelling Skin - Warm/Dry Neurological - Alert & oriented x3 Psychological - Appropriate affect Results Labs 04/08/24 11:08 04/08/24 11:08 Labs: Laboratory Results - last 24 hr 04/08/24 04/08/24 11:06 11:08 MCV 86.9 MCH 30.0 MCHC 34.6 RDW 12.2 Plt Count 449 H MPV 8.3 L Immature Gran % (Auto) 0.5 H Neut % (Auto) 83.3 H Lymph % (Auto) 6.1 L Martin % (Auto) 3.7 Eos % (Auto) 5.5 H Baso % (Auto) 0.9 Lymph # (Auto) 0.5 L Martin # (Auto) 0.3 Eos # (Auto) 0.4 Baso # (Auto) 0.1 Abs Immat Gran (auto) 0.04 H Absolute Neuts (auto) 6.7 Absolute Nucleated RBC 0.000 Nucleated RBC % (auto) 0.0 PT 12.3 INR 1.0 Anion Gap 15 Estim Creat Clear Calc 49.6 Estimated GFR > 60 Random Glucose 151 H Lactic Acid 1.0 Calcium 9.7 Magnesium 2.0 Total Bilirubin 0.4 AST 25 ALT 31 Alkaline Phosphatase 255 H Troponin I High Sens 8.5 B-Natriuretic Peptide 50 Total Protein 7.6 Albumin 4.4 Assessment and Plan (1) Acute bronchospasm: Status: Acute Plan 79-year-old female with history of osteopenia, hypothyroidism, hyperlipidemia, hypertension, rheumatoid arthritis on hydroxychloroquine, and rectovaginal fistula admitted for further management of acute bronchospasm #Acute bronchospasm -no hypoxia, no sepsis -?underlying COPD with exacerbation with prior CTA chest showing emphysema -?underlying ILD given significant work exposure to chemicals, dust -IV methylprednisolone 40mg bid -duonebs q4h while awake -iv doxy (initiated 04/08) -guaifenesin ac -RPP -cotninue maintenance inhalers -outpt follow up with pulm, should have PFT #Grade 1 diastolic dysfunction -cxr with slight blunting of costophrenic angles, however BNP WNL and just had echo 04/03 with normal LV systolic fx and grade I diastolic dysfx -Given 1 dose IV lasix in ED. Continue PO lasix #Chronic hyponatremia -discontinued hctz -serum osm wnl and urine osm/lytes low last admission -fluid restrict to 1.5L #RA -continue hydroxychloroquine #HTN -continue lasix, nifedipine, olmesartan #hypothyroidism -continue levothyroxine dvt prophylaxis- lovenox full code pt requires inpt stay at least 2 midnights for management of acute bronchospasm likely undiagnosed COPD exacerbation with diffuse wheezing and mild resiratory distress requiring iv steroids, scheduled nebs and close monitoring of respiratory status to monitor for and prevent decompensation Quality Stroke Does the patient have a stroke diagnosis?: No VTE Prior VTE?: No VTE Risk Level:: Medical - moderate - high VTE Device Contraindication: Treatment Not Indicated VTE Drug Contraindication: N/A - Med Ordered
--- NOTE | 2024-04-08 13:43 | PHA.MEDREC ---
Pharmacy Consult ? Medication Reconciliation Pharmacy has completed the medication reconciliation. spoke with patient and family at bedside to verify medications. Patient is no longer taking HCTZ and omeprazole. She started symbicort on 03/23 but stopped using it yesterday because she developed red bumps on her back and legs and thought it could be from that. She stated her doctor advised her to stop using flonase since she was having nose bleeds but still uses it because it helps her breathe. She is able to have someone bring in her culturelle. She does not take levothyroxine on Saturdays. She last took 200mg of hydroxychloroquine yesterday. She took furosemide, nifedipine, olmesartan, and albuterol inhaler this morning.
[2024-04-08] MEDS: Albuterol/Iprat 2.5/0.5MG 3 ML AMPUL.NEB INHALE ×2 (14:09→18:49)
[2024-04-08] MEDS: guaiFEN/Codeine SF 200/20/10ML 10 ML LIQUID 5 ML PO ×2 (14:43→21:45)
[2024-04-08] MEDS: Enoxaparin Sodium 40 MG/0.4 ML SYRINGE SUBCUT (14:44)
--- NOTE | 2024-04-08 14:45 | PC.NURSE ---
pt medicated per provider order. pt continues to rest in no apparent distress. pt taken off of 2L via NC and back on RA at this time d/t decrease in sob/wob. respirations remain even/unlabored. pt waiting for bed assignment at this time. family remains bedside. plan of care ongoing. call giraldo placed within reach.
[2024-04-08 15:14] LABS: Adenovirus PCR Not Detected (Not Detect.); Bordetella parapertussis PCR Not Detected (Not Detect.); Bordetella pertussis PCR Not Detected (Not Detect.); Chlamydia pneumoniae PCR Not Detected (Not Detect.); Coronavirus 229E PCR Not Detected (Not Detect.); Coronavirus HKU1 PCR Not Detected (Not Detect.); Coronavirus NL63 PCR Not Detected (Not Detect.); Coronavirus OC43 PCR Not Detected (Not Detect.); Human metapneumovirus PCR Not Detected (Not Detect.); Influenza A PCR Not Detected (Not Detect.); Influenza B PCR Not Detected (Not Detect.); Mycoplasma pneumoniae PCR Not Detected (Not Detect.); Parainfluenza 1 PCR Not Detected (Not Detect.); Parainfluenza 2 PCR Not Detected (Not Detect.); Parainfluenza 3 PCR Not Detected (Not Detect.); Parainfluenza 4 PCR Not Detected (Not Detect.); RSV PCR Not Detected (Not Detect.); Rhino/Enterovirus PCR Not Detected (Not Detect.)
[2024-04-08 15:15] LABS: SARS-CoV-2 PCR Not Detected (Not Detect.)
[2024-04-08] MEDS: 0.9 % Sodium Chloride Flush 3 ML SYRINGE IVFLUSH ×2 (17:00→21:51)
[2024-04-08] MEDS: traMADoL HCL 50 MG TABLET PO (21:45)
[2024-04-08] MEDS: methylPREDNISolone Sod Succ 40 MG/ML VIAL IVPUSH (21:45)
[2024-04-09] VITALS (8 sets, daily range): BP systolic 125–165; BP diastolic 60–85; PULSE 81–106; RESP 16–20; TEMP 36.4–36.8; O2SAT 93–98
[2024-04-09] MEDS: guaiFEN/Codeine SF 200/20/10ML 10 ML LIQUID 5 ML PO ×6 (02:17→20:43)
[2024-04-09 06:42] LABS: MANUAL DIFF FLAG NO
[2024-04-09 06:54] LABS: Basophils Percent Auto 0.2 % (0-2); Eosinophils Percent Auto 0.1 % (0-4); Hematocrit 30.7 % (37.0-47.0); Hemoglobin 10.5 g/dl (12.0-16.0); Imm Gran Abs Auto 0.04 X10*3/uL (0.00-0.03); Imm Gran Pct Auto 0.5 % (0.0-0.4); Lymphocytes Absolute Auto 0.8 X10*3/uL (1.2-4.9); Lymphocytes Percent Auto 9.4 % (20-40); Mean Corpuscular HGB Conc 34.2 g/dl (31.0-35.0); Mean Corpuscular Hemoglobin 30.3 pg (27.0-33.0); Mean Corpuscular Volume 88.5 fL (80.0-98.0); Monocytes Absolute Auto 0.4 X10*3/uL (0.1-1.2); Monocytes Percent Auto 5.1 % (2-11); Neutrophils Absolute Auto 7.1 x10*3/uL (2.0-8.3); Neutrophils Percent Auto 84.7 % (45-73); Platelet Count 437 X10*3/uL (160-400); Red Blood Count 3.47 X10*6/uL (4.20-5.50); Red Cell Distribution Width 12.4 % (11.0-16.0); White Blood Count 8.4 X10*3/uL (4.8-10.8)
[2024-04-09 07:03] LABS: Anion Gap 13 (12-20); Blood Urea Nitrogen 14 mg/dL (9-16); Calcium 9.4 mg/dL (8.4-10.2); Carbon Dioxide 29 mmol/L (22-29); Chloride 93 mmol/L (96-108); Estimated Glomerular Filt Rate > 60; Glucose Random 145 mg/dL (60-115); Potassium 4.6 mmol/L (3.3-5.1); Sodium 130 mmol/L (135-145)
[2024-04-09] MEDS: Furosemide 20 MG TABLET PO (08:19)
[2024-04-09] MEDS: Celecoxib 200 MG CAPSULE PO ×2 (08:19→20:45)
[2024-04-09] MEDS: Multivitamin TABLET 2 TAB PO (08:19)
[2024-04-09] MEDS: Valsartan 160 MG TABLET PO (08:20)
[2024-04-09] MEDS: Cholecalciferol (Vitamin D3) 25 MCG TABLET PO (08:20)
[2024-04-09] MEDS: Doxycycline Hyclate 100 MG in 0.9 % Sodium Chloride 250 ML 250 MG IV (08:20)
[2024-04-09] MEDS: Hydroxychloroquine Sulfate 200 MG TABLET PO (08:20)
[2024-04-09] MEDS: 0.9 % Sodium Chloride Flush 3 ML SYRINGE IVFLUSH ×3 (08:24→20:51)
[2024-04-09] MEDS: Levothyroxine Sodium 112 MCG TABLET PO (08:29)
[2024-04-09] MEDS: NIFEdipine ER 30 MG TAB.ER.24 60 MG PO (08:35)
[2024-04-09] MEDS: methylPREDNISolone Sod Succ 40 MG/ML VIAL IVPUSH ×2 (08:35→20:45)
--- NOTE | 2024-04-09 08:53 | P.PNIM_ITS ---
Subjective Subjective Date of Service: 04/09/24 Interval History: dyspnea/wheezing improved no fever Review of Systems Review of Systems: Yes all other systems are reviewed and are negative Physical Exam 2 Vital Signs: Vital Signs: Last Vital Signs Temp 97.9 F 04/09/24 07:32 Pulse 81 04/09/24 07:32 Resp 16 04/09/24 07:32 BP 165/85 H 04/09/24 07:32 Pulse Ox 94 04/09/24 07:32 O2 Del Method Room Air 04/09/24 07:32 BMI result Body Mass Index 23.7 Gen: in no acute distress HEENT: sclera anicteric, moist mucus membranes Neck: supple Lungs: soft expiratory wheezes Heart: regular rate and rhythm, no murmurs Abd: soft, non-tender, non-distended Ext: no edema Skin: warm/well-perfused Neuro: alert and oriented x3, no focal findings Psych: appropriate affect Objective Data Active Medications Acetaminophen (Acetaminophen 325 Mg Tablet) 650 mg PO Q6H PRN PRN Reason: Pain, Mild (Pain Scale 1-3), fever or headache Albuterol/Ipratropium (Albuterol/Iprat 2.5/0.5mg 3 Ml Ampul.Neb) 3 ml INHALE RQ4H WHILE AWAKE [facility] Last Admin: 04/08/24 18:49 Dose: 3 ml Documented By: PIPER Calcium Carbonate (Calcium Carbonate 750 Mg Tab.Chew) 750 mg PO Q4H PRN PRN Reason: Heartburn Celecoxib (Celecoxib 200 Mg Capsule) 200 mg PO BID [facility] Last Admin: 04/09/24 08:19 Dose: 200 mg Documented By: LUCINA Enoxaparin Sodium (Enoxaparin Sodium 40 Mg/0.4 Ml Syringe) 40 mg SUBCUT Q24H [facility] Last Admin: 04/08/24 14:44 Dose: 40 mg Documented By: YESENIA Fluticasone Propionate (Fluticasone Propionate Nasal 16 Gm Lamont) 2 spray NOSTRIL-B DAILY [facility] Fluticasone/Vilanterol (Fluticasone/Vilanterol 100/25 Blst.W.Dev) 1 puff INHALE RDAILY [facility] Furosemide (Furosemide 20 Mg Tablet) 20 mg PO DAILY [facility]; Protocol Last Admin: 04/09/24 08:19 Dose: 20 mg Documented By: LUCINA Guaifenesin/Codeine Phosphate (Guaifen/Codeine Sf 200/20/10ml 10 Ml Liquid) 5 ml PO Q4H [facility] Last Admin: 04/09/24 08:19 Dose: 5 ml Documented By: LUCINA Hydroxychloroquine Sulfate (Hydroxychloroquine Sulfate 200 Mg Tablet) 400 mg PO Q48H [facility] Hydroxychloroquine Sulfate (Hydroxychloroquine Sulfate 200 Mg Tablet) 200 mg PO Q48H [facility] Last Admin: 04/09/24 08:20 Dose: 200 mg Documented By: LUCINA Doxycycline Hyclate 100 mg/ (Sodium Chloride) 250 mls @ 166.67 mls/hr IV Q12H [facility] Last Admin: 04/09/24 08:20 Dose: 250 mls/hr Documented By: LUCINA Levothyroxine Sodium (Levothyroxine Sodium 112 Mcg Tablet) 112 mcg PO [id number]@0600 [facility] Last Admin: 04/09/24 08:29 Dose: 112 mcg Documented By: LUCINA Loratadine (Loratadine 10 Mg Tablet) 10 mg PO BEDTIME [facility] Magnesium Hydroxide (Milk Of Magnesia 30 Ml Oral.Susp) 30 ml PO DAILY PRN PRN Reason: Constipation Melatonin (Melatonin 3 Mg Tablet) 6 mg PO BEDTIME PRN PRN Reason: Insomnia Methylprednisolone Sodium Succinate (Methylprednisolone Sod Succ 40 Mg/Ml Vial) 40 mg IVPUSH Q12H [facility] Last Admin: 04/09/24 08:35 Dose: 40 mg Documented By: LUCINA Morphine Sulfate (Morphine Sulfate 2 Mg/Ml Cartridge) 2 mg IVPUSH Q4H PRN; Protocol PRN Reason: respiratory distress Multivitamins/Vitamin C (Multivitamin Tablet) 2 tab PO DAILY [facility] Last Admin: 04/09/24 08:19 Dose: 2 tab Documented By: LUCINA Nifedipine (Nifedipine Er 30 Mg Tab.Er.24) 60 mg PO DAILY [facility]; Protocol Last Admin: 04/09/24 08:35 Dose: 60 mg Documented By: LUCINA Sodium Chloride (0.9 % Sodium Chloride Flush 3 Ml Syringe) 3 ml IVFLUSH QSHIFT [facility] Last Admin: 04/09/24 08:24 Dose: 3 ml Documented By: LUCINA Valsartan (Valsartan 160 Mg Tablet) 160 mg PO DAILY [facility] Last Admin: 04/09/24 08:20 Dose: 160 mg Documented By: LUCINA Vitamin D (Cholecalciferol (Vitamin D3) 25 Mcg Tablet) 25 mcg PO DAILY [facility] Last Admin: 04/09/24 08:20 Dose: 25 mcg Documented By: LUCINA Labs 04/09/24 05:51 04/09/24 05:51 Labs: Laboratory Results - last 24 hr 04/08/24 04/08/24 04/08/24 11:06 11:08 14:14 MCV 86.9 MCH 30.0 MCHC 34.6 RDW 12.2 Plt Count 449 H MPV 8.3 L Immature Gran % (Auto) 0.5 H Neut % (Auto) 83.3 H Lymph % (Auto) 6.1 L [place] % (Auto) 3.7 Eos % (Auto) 5.5 H Baso % (Auto) 0.9 Lymph # (Auto) 0.5 L [place] # (Auto) 0.3 Eos # (Auto) 0.4 Baso # (Auto) 0.1 Abs Immat Gran (auto) 0.04 H Absolute Neuts (auto) 6.7 Absolute Nucleated RBC 0.000 Nucleated RBC % (auto) 0.0 PT 12.3 INR 1.0 Anion Gap 15 Estim Creat Clear Calc 49.6 Estimated GFR > 60 Random Glucose 151 H Lactic Acid 1.0 Calcium 9.7 Magnesium 2.0 Total Bilirubin 0.4 AST 25 ALT 31 Alkaline Phosphatase 255 H Troponin I High Sens 8.5 B-Natriuretic Peptide 50 Total Protein 7.6 Albumin 4.4 Respiratory Panel Bach See Note Adenovirus (Rapid PCR) Not Detected B.pert (TEM-PCR) Not Detected B.parapertussis DNA PCR Not Detected C. pneumoniae DNA (PCR) Not Detected Coronavirus OC43 (PCR) Not Detected Coronavirus HKU1 (PCR) Not Detected Coronavirus 229E (PCR) Not Detected Coronavirus NL63 (PCR) Not Detected Human Metapneumovir PCR Not Detected Influenza A (RT-PCR) Not Detected Influenza B (RT-PCR) Not Detected M. pneumoniae (PCR) Not Detected Parainfluenza 1 (PCR) Not Detected Parainfluenza 2 (PCR) Not Detected Parainfluenza 3 (PCR) Not Detected Parainfluenza 4 (PCR) Not Detected RSV (PCR) Not Detected Entero/Rhino (PCR) Not Detected SARS-CoV-2 RNA (RT-PCR) Not Detected 04/09/24 05:51 MCV 88.5 MCH 30.3 MCHC 34.2 RDW 12.4 Plt Count 437 H MPV 9.0 L Immature Gran % (Auto) 0.5 H Neut % (Auto) 84.7 H Lymph % (Auto) 9.4 L [place] % (Auto) 5.1 Eos % (Auto) 0.1 Baso % (Auto) 0.2 Lymph # (Auto) 0.8 L [place] # (Auto) 0.4 Eos # (Auto) 0.0 Baso # (Auto) 0.0 Abs Immat Gran (auto) 0.04 H Absolute Neuts (auto) 7.1 Absolute Nucleated RBC 0.000 Nucleated RBC % (auto) 0.0 PT INR Anion Gap 13 Estim Creat Clear Calc 54.0 Estimated GFR > 60 Random Glucose 145 H Lactic Acid Calcium 9.4 Magnesium Total Bilirubin AST ALT Alkaline Phosphatase Troponin I High Sens B-Natriuretic Peptide Total Protein Albumin Respiratory Panel Bach Adenovirus (Rapid PCR) B.pert (TEM-PCR) B.parapertussis DNA PCR C. pneumoniae DNA (PCR) Coronavirus OC43 (PCR) Coronavirus HKU1 (PCR) Coronavirus 229E (PCR) Coronavirus NL63 (PCR) Human Metapneumovir PCR Influenza A (RT-PCR) Influenza B (RT-PCR) M. pneumoniae (PCR) Parainfluenza 1 (PCR) Parainfluenza 2 (PCR) Parainfluenza 3 (PCR) Parainfluenza 4 (PCR) RSV (PCR) Entero/Rhino (PCR) SARS-CoV-2 RNA (RT-PCR) Assessment and Plan (1) Acute bronchospasm: Status: Acute Assessment and Plan: d2 79yo F with osteopenia, hypothyroidism, hyperlipidemia, hypertension, rheumatoid arthritis on hydroxychloroquine, and rectovaginal fistula admitted for further management of acute bronchospasm. Recently found to have emphysema on imaging and has had out[place] consult [place] [facility] [place] suspected COPD exacerbation - continue IV methylprednisolone, doxycycline, standing Duonebs, home controller inhaler - respiratory pathogen panel negative - needs formal PFTs through [facility] Pulm upon discharge grade 1 diastolic dysfunction - continue PO furosemide chronic hypoNa, mild - d/c HCTZ; fluid-restrict to 1.5L RA - continue hydroxychloroquine + celecoxib HTN - continue olmesartan [substituting valsartan] + nifedipine, d/c HCTZ hypothyroidism - continue LT4, check TSH VTE ppx - LMWH dispo - likely home in next 1-2d In my clinical judgment, the patient requires continued inpatient hospitalization for the following reasons: COPD Total time managing care of this patient today: 35 minutes. Quality Stroke Does the patient have a stroke diagnosis?: No VTE Prior VTE?: No VTE Risk Level:: Medical - moderate - high VTE Device Contraindication: Treatment Not Indicated VTE Drug Contraindication: N/A - Med Ordered
[2024-04-09] MEDS: Albuterol/Iprat 2.5/0.5MG 3 ML AMPUL.NEB INHALE ×4 (08:56→19:19)
[2024-04-09 09:46] LABS: Thyroid Stimulating Hormone 0.16 uIU/mL (0.32-4.0)
[2024-04-09] MEDS: Fluticasone/Vilanterol 100/25 BLST.W.DEV 1 PUFF INHALE (10:57)
[2024-04-09] MEDS: Enoxaparin Sodium 40 MG/0.4 ML SYRINGE SUBCUT (12:46)
[2024-04-09] MEDS: Acetaminophen 325 MG TABLET 650 MG PO (12:48)
--- NOTE | 2024-04-09 15:49 | MHC.CM.PN ---
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 PT IS INDEPENDENT WITH CARE AND USES A NEBULIZER FOR DME HCP ON FILE PCP: [facility] DELIVERED DCP: HOME NO SERVICES VIA FAMILY TRANSPORT
[2024-04-09] MEDS: Loratadine 10 MG TABLET PO (20:45)
[2024-04-09] MEDS: Doxycycline Hyclate 100 MG in 0.9 % Sodium Chloride 250 ML 166.7 MG IV (20:48)
[2024-04-10] MEDS: guaiFEN/Codeine SF 200/20/10ML 10 ML LIQUID 5 ML PO ×3 (00:30→09:06)
[2024-04-10 04:00] VITALS: BP 168/78; PULSE 80; RESP 16; TEMP 36; O2SAT 96
[2024-04-10] MEDS: Levothyroxine Sodium 112 MCG TABLET PO (04:48)
[2024-04-10 05:51] LABS: Hematocrit 30.8 % (37.0-47.0); Hemoglobin 10.8 g/dl (12.0-16.0); Mean Corpuscular HGB Conc 35.1 g/dl (31.0-35.0); Mean Corpuscular Hemoglobin 30.8 pg (27.0-33.0); Mean Corpuscular Volume 87.7 fL (80.0-98.0); Mean Platelet Volume 8.7 fL (9.4-12.3); Platelet Count 422 X10*3/uL (160-400); Red Blood Count 3.51 X10*6/uL (4.20-5.50); Red Cell Distribution Width 12.5 % (11.0-16.0); White Blood Count 9.4 X10*3/uL (4.8-10.8)
[2024-04-10 06:02] LABS: Anion Gap 12 (12-20); Blood Urea Nitrogen 16 mg/dL (9-16); Calcium 9.3 mg/dL (8.4-10.2); Carbon Dioxide 28 mmol/L (22-29); Chloride 93 mmol/L (96-108); Creatinine Clr Calc Pharmacy 55.6; Estimated Glomerular Filt Rate > 60; Glucose Random 134 mg/dL (60-115); Potassium 4.3 mmol/L (3.3-5.1); Sodium 129 mmol/L (135-145)
[2024-04-10 07:49] VITALS: BP 150/80; PULSE 79; RESP 16; TEMP 36.7; O2SAT 96
[2024-04-10] MEDS: Albuterol/Iprat 2.5/0.5MG 3 ML AMPUL.NEB INHALE (08:39)
[2024-04-10 08:42] VITALS: PULSE 93; RESP 16; O2SAT 99
[2024-04-10] MEDS: Fluticasone/Vilanterol 100/25 BLST.W.DEV 1 PUFF INHALE (08:43)
--- NOTE | 2024-04-10 09:03 | MHC.SL.SWA ---
Speech Pathologist Impression: Oral phase dysphagia Dysphasia Diet Status: No changes Liquid Consistency and Strategies for Safe Swallow: Liquid Intake Recommendation: Thin Liquid Intake Strategies: Small Sips Solid Food Consistency: Dietary Recommendations: Regular Additional Modifications to Solid Foods: Recommend CONTINUE on REGULAR texture diet with THIN liquids, pills to be administered WHOLE with LIQUID. Strategies are recommended to ease mastication: take small bites, chew food well, alternate bites with sips of liquid, avoid foods which are overly hard or sticky. Strategies discussed w/ patient verbalizing understanding, stating, This is what I do anyway. Oral Medication Intake: Whole with Liquid Please contact the pharmacy regarding appropriate crushable or liquid drug formulations that are available whenever modified delivery is recommended. Compensatory Strategies and Precautions to be Taken for Safe Swallow: Sitting Upright (90 deg) Small Bites and Sips Alternate Liquids/Solids Rate of Ingestion Change Avoid Specific Foods Supervision While Eating and Drinking for Safe Swallow: Intermittent Supervision Foods to Avoid: Hard, difficult to chew solids Swallowing Recommended Treatments: Recommendation for Speech: NA:Typical Evaluation Comment: Please re-refer if we can be of further assistance or with any changes. Frequency/Duration: Date Range for Service Req: Timeline to reassess: Loin Puller Clinican/Clinical Fellow: No Supervisory Statement: I have reviewed and agree with the student/clinical fellow's documentation: N/A Speech Language Pathologist: Elvia Winter M.A., CCC-SCRAPER HAND
[2024-04-10] MEDS: Doxycycline Hyclate 100 MG in 0.9 % Sodium Chloride 250 ML 166.66 MG IV (09:06)
[2024-04-10] MEDS: methylPREDNISolone Sod Succ 40 MG/ML VIAL IVPUSH (09:06)
[2024-04-10 09:07] VITALS: BP 150/80
[2024-04-10] MEDS: Cholecalciferol (Vitamin D3) 25 MCG TABLET PO (09:07)
[2024-04-10] MEDS: Valsartan 160 MG TABLET PO (09:07)
[2024-04-10] MEDS: Celecoxib 200 MG CAPSULE PO (09:07)
[2024-04-10] MEDS: Furosemide 20 MG TABLET PO (09:07)
[2024-04-10] MEDS: NIFEdipine ER 30 MG TAB.ER.24 60 MG PO (09:07)
[2024-04-10] MEDS: Multivitamin TABLET 2 TAB PO (09:07)
[2024-04-10] MEDS: 0.9 % Sodium Chloride Flush 3 ML SYRINGE IVFLUSH (09:08)
[2024-04-10] MEDS: Hydroxychloroquine Sulfate 200 MG TABLET 400 MG PO (09:08)
--- NOTE | 2024-04-10 10:49 | MHC.CM.PN ---
DP: PT HAS BEEN MEDICALLY CLEARED FOR DC HOME, NO SERVICES. DAUGHTER WILL TRANSPORT.
--- NOTE | 2024-04-10 11:44 | PM.DS ---
DS: Providers Provider Date of Service: 04/11/24 Date of admission: 04/08/24 13:17 Primary care physician: Balaji Mercado MD DS: Diagnosis Discharge Diagnosis (1) Acute bronchospasm: Status: Acute DS: Summary Hospital Course Hospital Course: History of presenting illness: Date of Service: 04/08/24 Attending physician on admission: Kadeem Calix Chief Complaint: sob, wheezing, cough 79-year-old female with history of osteopenia, hypothyroidism, hyperlipidemia, hypertension, rheumatoid arthritis on hydroxychloroquine, and rectovaginal fistula presents to the ED earlier today for evaluation of shortness of breath and wheezing ongoing for 2 days. She also reports weakness, lightheadedness, headache and productive cough with yellow/brown sputum production. Also endorses orthopnea that started last night. She also reports several episodes of epistaxis that occurred 3 days ago lasting up to 20 minutes but has not had recurrence. She denies fevers, chills, sore throat, nasal congestion, abdominal pain, nausea, vomiting, diarrhea, syncope, chest pain.. She has had recurrent episodes of acute bronchospasm and has not been definitively diagnosed with COPD but did have CTA of the chest performed at our facility 02/2024 which showed diffuse emphysematous changes. She did follow-up with pulmonology through [facility] and was prescribed Spiriva and recommended to follow-up. She [place] [facility] [place] showed normal LV systolic function and grade 1 diastolic dysfunction without any significant valvular disease. Has second hand smoke exposure from childhood. 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 Since arrival, vitals stable, no fevers or hypoxia. No leukocytosis. Renal function baseline, electrolytes normal the exception of what appears to be a chronic hyponatremia of 130 and chloride 90. Troponin within normal limits. BNP 50. Chest x-ray shows blunting of the costophrenic angles possibly reflecting small bilateral pleural effusions but otherwise clear lungs. In the ED, received IV lasix, methylprednisolone, duone, and doxy without much improvement. Hospital course: 79yo F with osteopenia, hypothyroidism, hyperlipidemia, hypertension, rheumatoid arthritis on hydroxychloroquine, and rectovaginal fistula admitted for further management of acute bronchospasm. Recently found to have emphysema on imaging and has had outpt consult with [facility] Pulmonology, patient admitted to medical floor with suspected COPD exacerbation treated with IV steroids, doxycycline scheduled and as needed updraft treatment Patient responded well to above treatment, lungs are clear on examination, respiratory viral pathogen is negative, she is being discharged home with recommendation to have formal PFTS through [facility] pulmonology, she is given prescription of prednisone to be used only with recurrent episodes of shortness of breath and chest tightness, there was no evidence of a acute CHF exacerbation she is continued on Lasix dose reduced to every other day, she continued to have mild persistent hyponatremia with sodium 129-131 range recommended to follow fluid restriction 1.5 L and to discontinue hydrochlorothiazide recommend outpatient follow-up with PCP. In regard to chronic rheumatoid arthritis recommend to continue hydroxychloroquine and Celebrex. In regard to hypertension recommend to continue all missed Jj and nifedipine. hypothyroidism TSH 0.16 dose of levothyroxine reduced from 110 mcg to 100 mcg Wednesday and Fridays recommend repeat TSH in 6 weeks Time Attestation Discharge Coordination Time (in mins): 40 Quality: Safe Use of Opioids Does Pt have an Active Cancer Diagnosis on the Problem List?: No Quality: Stroke Does the patient have a stroke diagnosis?: No Physical Exam Vital Signs: Vital Signs: Last Vital Signs Temp 98.0 F 04/10/24 07:49 Pulse 93 04/10/24 08:42 Resp 16 04/10/24 08:42 BP 150/80 H 04/10/24 09:07 Pulse Ox 96 04/10/24 07:49 O2 Del Method Room Air 04/10/24 07:49 BMI result Body Mass Index 23.7 Const: Other: Gen: Awake alert x3, in no acute distress HEENT: sclera anicteric, moist mucus membranes Neck: supple Lungs: Coarse breath sounds, no wheeze, no crackles Heart: regular rate and rhythm, no murmurs Abd: soft, non-tender, non-distended Ext: no edema Skin: warm/well-perfused Neuro: alert and oriented x3, no focal findings Psych: appropriate affect DS: Data Data Completed and Pending Labs on day of discharge: Laboratory Results - last 24 hr 04/10/24 05:24 WBC 9.4 RBC 3.51 L Hgb 10.8 L Hct 30.8 L MCV 87.7 MCH 30.8 MCHC 35.1 H RDW 12.5 Plt Count 422 H MPV 8.7 L Absolute Nucleated RBC 0.000 Nucleated RBC % (auto) 0.0 Sodium 129 L Potassium 4.3 Chloride 93 L Carbon Dioxide 28 Anion Gap 12 BUN 16 Creatinine 0.67 Estim Creat Clear Calc 55.6 Estimated GFR > 60 Random Glucose 134 H Calcium 9.3 Preliminary micro results at discharge 04/08/24 11:12 Blood Culture - Preliminary Blood - Venous No growth after 24 hours. 04/08/24 11:08 Blood Culture - Preliminary Blood - Venous No growth after 24 hours. Discharge Plan Discharge Anticipated Discharge Date/Time: 04/10/24 09:08 Patient Disposition: Home, Self-Care Discharge Diagnosis: Acute bronchospasm Grade 1 diastolic dysfunction Chronic hyponatremia Referrals: Balaji Mercado MD [Primary Care Provider] - 1 Week Discharge Medications: New levothyroxine 100 mcg tablet 100 mcg PO DAILY Qty: 30 0RF Rx Instructions: Take 1 tablet daily by mouth sun/wed/wed/wed//wed prednisone 10 mg tablet 10 mg PO DAILY Qty: 30 0RF Continued celecoxib [Celebrex] 200 mg capsule 200 mg PO BID hydroxychloroquine 200 mg tablet 200 mg PO DAILY albuterol sulfate 90 mcg/actuation HFA aerosol inhaler 2 puff inhalation Q6H PRN (Reason: wheezing) fluticasone propionate 50 mcg/actuation spray,suspension 2 spray intranasal DAILY Culturelle 10 billion cell Capsule 1 cap PO BID cholecalciferol (vitamin D3) [Vitamin D3] 25 mcg (1,000 unit) Tablet 25 mcg PO DAILY Calmol-4 76-10 % Suppository 1 supp AL BEDTIME clobetasol 0.05 % cream 1 appl topical DAILY PRN (Reason: Rash) hydroxychloroquine 200 mg Tablet 200 mg PO Q OTHER DAY Rx Instructions: takes in PM nifedipine 30 mg Tablet Extended Release 24hr 60 mg PO DAILY Qty: 180 0RF Protocol: Hold for SBP< HOLD for SBP < : 90 multivitamin Tablet 2 tab PO DAILY albuterol sulfate 2.5 mg /3 mL (0.083 %) solution for nebulization 2.5 mg inhalation Q6H PRN (Reason: Shortness Of Breath Or Wheezing) mupirocin 2 % ointment 1 appl topical BID-TID PRN (Reason: infection) [place] Saline Gel [place],Non-Aerosol 1 spray INTRANASAL BID PRN (Reason: Dry Nasal Passages) budesonide-formoterol [Symbicort] 80-4.5 mcg/actuation HFA aerosol inhaler 2 puff INHALATION BID betamethasone dipropionate 0.05 % cream 1 appl topical BID PRN (Reason: Rash) metronidazole 0.75 % cream 1 appl topical BID loratadine 10 mg tablet 10 mg PO BEDTIME olmesartan 40 mg tablet 40 mg PO DAILY Changed furosemide 20 mg tablet 20 mg PO QTUTHSA Qty: 30 0RF Discontinued levothyroxine 112 mcg tablet 112 mcg PO SUMOTUWETHFR Discharge Orders: Discharge Order (Routine); Ordered 04/10/24 Ordered By: Magui Gaxiola Diet: Advance to usual diet Activity on Discharge: As tolerated Stand Alone Forms: Patient Portal Discharge page Print Language: Malay Other Ambulatory Orders: Basic Metabolic Panel (Routine) Timeframe: [id number] Facility: [facility] - Location: Laboratory Ordered By: Magui Gaxiola Care Plan Goals: Follow-up with pulmonology at [facility] call for appointment. Continue fluid restriction 1500 mL per day Take Lasix 20 mg every other day Prednisone 10 mg tablets dispensed, use prednisone with symptoms of shortness of breath,and call MD start with prednisone 40 mg daily x3 days, prednisone 30 mg daily x3 days, 20 mg daily x3 days than 10mg daily x 3 days Check BMP on Check TSH in 6 weeks Saline sprays as needed/use humidifier Health Concerns: Hyponatremia/intermittent leg edema/rheumatoid arthritis continue all home medications Plan of Treatment: Outpatient follow-up with primary care physician call for appointment/outpatient follow-up with pulmonology [facility] call for appointment Assessment: As above Lasix Discharge Date/Time: 04/10/24 13:21
== END 2024-04-10 13:21 | disposition home or self-care (01) | DRG 202 ==
LOC: HO.ED 12:43 → HO.EDOVER 13:27 → HO.S3 17:43
PROVIDERS: Family Medicine; Physician Assistant; Admitting Provider Physician Assistant; Emergency Provider Emergency Medicine; PCP Internal Medicine; Visit Provider Hospitalist
DX: J98.01 Acute bronchospasm (principal); E87.1 Hypo-osmolality and hyponatremia; J43.9 Emphysema, unspecified; M06.9 Rheumatoid arthritis, unspecified; E03.9 Hypothyroidism, unspecified; Z20.822 Contact with and (suspected) exposure to COVID-19; Z79.51 Long term (current) use of inhaled steroids; Z79.890 Hormone replacement therapy; Z79.899 Other long term (current) drug therapy
CPT/HCPCS: 36415; 71045; 80048; 80053; 83605; 83735; 83880; 84443; 84484; 85025; 85027; 85610; 87040; 87633; 92610; 93005; 94640; 99285; J1650; J1940; J2919; J3475

== ENCOUNTER → 2024-04-08 10:25 | Outpatient (BNV) | payer MEDICARE, SELFPAY | PROVIDERS: Admitting Provider Physician Assistant; Emergency Provider Emergency Medicine; PCP Internal Medicine; Visit Provider Internal Medicine | DX: R07.9 Chest pain, unspecified (principal); R00.0 Tachycardia, unspecified; R94.31 Abnormal electrocardiogram [ECG] [EKG] | CPT/HCPCS: 93010 ==

== ENCOUNTER → 2024-04-08 13:17 | Outpatient (BNV) | payer MEDICARE, SELFPAY | PROVIDERS: Admitting Provider Physician Assistant; Emergency Provider Emergency Medicine; PCP Internal Medicine; Visit Provider Physician Assistant | DX: J98.01 Acute bronchospasm (principal) | CPT/HCPCS: 99223; 99232; 99239 ==

== ENCOUNTER 2024-06-17 10:22 | Outpatient (REF) | payer MEDICARE, SELFPAY ==
[2024-06-17 11:38] LABS: Anion Gap 14 (12-20); Blood Urea Nitrogen 25 mg/dL (9-16); Carbon Dioxide 25 mmol/L (22-29); Chloride 102 mmol/L (96-108); Estimated Glomerular Filt Rate > 60; Glucose Random 98 mg/dL (60-115); Potassium 4.7 mmol/L (3.3-5.1); Sodium 136 mmol/L (135-145)
== END 2024-06-17 10:23 | disposition home or self-care (01) ==
LOC: HO.LAB 10:22
PROVIDERS: PCP Internal Medicine; Visit Provider Internal Medicine
DX: E87.1 Hypo-osmolality and hyponatremia (principal)
CPT/HCPCS: 36415; 80048

== ENCOUNTER 2024-09-05 13:22 | Outpatient (REF) | payer MEDICARE, SELFPAY ==
--- NOTE | ~2024-09-05 | MM_ITS ---
EXAMINATION: MM SCREENING DIGITAL BREAST TOMOSYNTHESIS, BILATERAL CLINICAL INFORMATION: Screening. Asymptomatic. COMPARISON: Mammography: Comparison is made with available priors TECHNIQUE: Digital breast mammography with tomosynthesis is performed in both the craniocaudal and mediolateral oblique views along with computer-aided detection (CAD). FINDINGS: The breasts are heterogeneously dense, which may obscure small masses (ACR BI-RADS breast composition Category c). There are no significant masses, abnormal calcifications, or other abnormalities. MM/MM tomosynthesis screening BI IMPRESSION: No mammographic evidence of malignancy. ASSESSMENT: BI-RADS BI-RADS 1 - Negative RECOMMENDATION: Routine annual mammography screening. 1 year F/U This examination should not preclude the clinical evaluation of a suspicious palpable abnormality. This patient's information was entered into a reminder system with a target due date for their next mammogram. Electronically signed by: Tiny Sanderson DO 09/11/2024 05:47 PM EL
--- OUTSIDE RECORDS SUMMARY | 2024-09-12 14:25 | XMS_ITS | Continuity of Care Document ---
Author Organization [facility] ter Address [address] [place] [id number]- Care Team Providers Care Green Building Architect Name Role Phone Balaji Mercado MD Primary Care Physician Encounter [facility] ACCT R [id number] Date(s): 07/17/24 - 08/25/[address] [address]- Attending Physician: Mer Hines MD Admitting Physician: Mer Hines MD Referring Physician: Mer Hines MD Encounter Type: Pre-Outpt Allergies, Adverse Reactions, Alerts Substance Criticality Severity Reaction Reaction Severity Status azithromycin dizziness Active cortisone rash Active Flonase 0.05 mg/inh spray Active Zithromax Z-Braulio Acti ve Daypro rash Active Medications acetaminophen 325 mg oral tablet 650 mg, By Mouth, Every 6 hours, Refills 0, Maintenance, 06/02/17 7:26:36 AM EDT Start Date: 06/02/17 Status: Ordered Repeat number: 1 albuterol 0.083% inhalation solution 75 mL, 0 Refill(s), INHALE 3 ML BY NEBULIZATION EVERY 6 HOURS NEEDED, 0 Refills, 03/23/24 2:47:00PM EDT, Partial fill upon patient request if the prescription is for a schedule II opioid drug. Start Date: 03/23/24 Status: Ordered Repeat number: 1 albuterol CFC free 90 mcg/inh inhalation aerosol 2, puffs, Inhalation, Every 6 hours, PRN, # 18 Gm, Refills 0, Maintenance, 03/23/24 2:50:00 PM EDT, Aerosol Start Date: 03/23/24 Status: Ordered Quantity: 18.0 Unit: g Repeat number: 1 [place] Saline 0.65% nasal gel 1 sprays, 4 times a day, 0 Refills, Maintenance, 02/22/24 2:58:00 PM EDT, Partial fill upon patient request if the prescription is for a schedule II opioid drug. Start Date: 02/22/24 Status: Ordered Repeat number: 1 Betamethasone Dipropionate 0.05% Lotion See Instructions, Apply 1 application, 2 times a day as needed., 0 Refills, Maintenance, 03/23/24 2:51:00 PM EDT, Partial fill upon patient request if the prescription is for a schedule II opioid drug. Start Date: 03/23/24 Status: Ordered Repeat number: 1 CeleBREX 200 mg oral capsule 1 capsule = 200 mg, By Mouth, Daily, # 30 capsule, 0 Refills, Maintenance, 05/31/17 2:11:30 AM EDT, Capsule Start Date: 05/31/17 Status: Ordered Quantity: 30.0 Unit: capsule Repeat number: 1 clobetasol 0.05% topical ointment See Instructions, Apply 1 application topically daily as needed., 0 Refills, Maintenance, 03/23/24 3:07:00 PM EDT, Partial fill upon patient request if the prescription is for a schedule II opioid drug. Start Date: 03/23/24 Status: Ordered Repeat number: 1 Culturelle Pro-well 3-in-1 oral capsule 1 capsule, By Mouth, Daily, # 30 capsule, 0 Refills, Maintenance, 03/23/24 3:04:00 PM EDT, Capsule, Partial fill upon patient request if the prescription is for a schedule II opioid drug. Start Date: 03/23/24 Status: Ordered Quantity: 30.0 Unit: capsule Repeat number: 1 cyclobenzaprine 5 mg oral tablet 1 tablet = 5 mg, By Mouth, 3 times a day, 0 Refills, Maintenance, 02/05/17 10:26:27 AM EDT Start Date: 02/05/17 Status: Ordered Repeat number: 1 Desonide 0.05% Topical 1 application, Topically, Daily at bedtime, 0 Refills, Maintenance, Cream Start Date: 05/31/17 Status: Ordered Repeat number: 1 fluticasone 50 mcg inhalation powder = 50 mcg, Inhalation, Daily at bedtime, 0 Refills, Maintenance, 02/05/17 10:24:49 AM EDT Start Date: 02/05/17 Status: Ordered Repeat number: 1 furosemide 20 mg oral tablet 15 each, 0 Refill(s), Refills 0, 03/23/24 2:47:00 PM EDT, Partial fill upon patient request if the prescription is for a schedule II opioid drug. Start Date: 03/23/24 Status: Ordered Repeat number: 1 Hemorrhoidal 0.25% rectal suppository See Instructions, Place 1 suppository rectally every morning., 0 Refills, Maintenance, 03/23/24 2:55:00 PM EDT, Partial fill upon patient request if the prescription is for a schedule II opioid drug. Start Date: 03/23/24 Status: Ordered Repeat number: 1 hydrochlorothiazide 12.5 mg oral capsule 1 capsule = 12.5 mg, By Mouth, Daily, 0 Refills, Maintenance, 02/05/17 10:26:10 AM EDT Start Date: 02/05/17 Status: Ordered Repeat number: 1 hydroxychloroquine 200 mg oral tablet 180 tablet, 0 Refill(s), Refills 0, 03/23/24 3:02:00 PM EDT, Partial fill upon patient request if the prescription is for a schedule II opioid drug. Start Date: 03/23/24 Status: Ordered Repeat number: 1 levothyroxine 0.088 mg oral tablet 0 Refills, Maintenance, 06/29/24 3:05:00 PM EDT, Partial fill upon patient request if the prescription is for a schedule II opioid drug. Start Date: 06/29/24 Status: Ordered Repeat number: 1 levothyroxine 112 mcg (0.112 mg) oral capsule 1 capsule = 112 mcg, By Mouth, Daily, # 30 tablet, 0 Refills, Maintenance, 02/22/24 3:04:00 PM EDT, Capsule, Partial fill upon patient request if the prescription is for a schedule II opioid drug. Start Date: 02/22/24 Status: Ordered Quantity: 30.0 Unit: tablet Repeat number: 1 lisinopril 20 mg oral tablet 20 mg, 1, tablet, By Mouth, Daily, Refills 0, Maintenance, 02/05/17 10:24:23 AM EDT Start Date: 02/05/17 Status: Ordered Repeat number: 1 loratadine 10 mg oral tablet 10 mg, 1, tablet, By Mouth, Daily, # 30 tablet, Refills 0, Maintenance, 03/23/24 3:08:00 PM EDT, Partial fill upon patient request if the prescription is for a schedule II opioid drug. Start Date: 03/23/24 Status: Ordered Quantity: 30.0 Unit: tablet Repeat number: 1 metroNIDAZOLE 0.75% topical cream 1 application, Topically, Daily in AM, # 45 Gm, 0 Refills, Maintenance, 05/31/17 2:10:28 AM EDT, Cream Start Date: 05/31/17 Status: Ordered Quantity: 45.0 Unit: g Repeat number: 1 multivitamin Multiple Vitamins oral capsule 2 capsules, By Mouth, Daily, # 30 capsule, 0 Refills, Maintenance, 03/23/24 3:09:00 PM EDT, Capsule,Partial fill upon patient request if the prescription is for a schedule II opioid drug. Start Date: 03/23/24 Status: Ordered Quantity: 30.0 Unit: capsule Repeat number: 1 mupirocin 2% topical ointment 1 application, Topically, 2 times a day, apply to affected skin, # 30 Gm, 0 Refills, Maintenance, 03/23/24 3:09:00 PM EDT, Ointment, Partial fill upon patient request if the prescription is for a schedule II opioid drug. Start Date: 03/23/24 Stop Date: 04/06/24 Status: Ordered Quantity: 30.0 Unit: g Repeat number: 1 NIFEdipine 30 mg oral tablet, extended release 30 Unknown, Oral, 0 Refill(s), Take 30 mg by mouth 2 (two) times a day., Refills 0, 03/02/24 8:00:00PM EDT, Partial fill upon patient request if the prescription is for a schedule II opioid drug. Start Date: 03/02/24 Status: Ordered Repeat number: 1 olmesartan 40 mg oral tablet 90 tablet, 0 Refill(s), 0 Refills, 03/23/24 3:01:00 PM EDT, Partial fill upon patient request if theprescription is for a schedule II opioid drug. Start Date: 03/23/24 Status: Ordered Repeat number: 1 omeprazole 20 mg oral enteric coated capsule 30 each, 0 Refill(s), TAKE 1 CAPSULE BY MOUTH DAILY AT 6.30 AM, 0 Refills, 03/23/24 3:01:00 PM EDT, Partial fill upon patient request if the prescription is for a schedule II opioid drug. Start Date: 03/23/24 Status: Ordered Repeat number: 1 Symbicort 80mcg/4.5mcg Inhaler 2, puffs, Inhalation, 2 times a day, # 3 each, Refills 3, Tot. Refills 3, Maintenance, 08/17/24 5:17:00 PM EST, Route to Pharmacy Electronically, [id number], [facility], asthma j45.9, 158, cm, 06/29/24 14:58:00 EDT, Height, 60.5, kg, 03/31/23 10:37:00 EDT, Dry Weight Start Date: 08/17/24 Stop Date: 08/12/25 Status: Ordered Quantity: 3.0 Unit: each Repeat number: 4 Synthroid 0.112 mg oral tablet 0.112 mg, 1, tablet, By Mouth, Daily, 0 Refills Start Date: 03/11/06 Status: Ordered Repeat number: 1 Systane ophthalmic solution 1 drops, Eyes, Both, Daily at bedtime, PRN for dry eyes, # 5 mL, 0 Refills, Maintenance, 05/31/17 2:10:49 AM EDT, Solution Start Date: 05/31/17 Status: Ordered Quantity: 5.0 Unit: mL Repeat number: 1 Vitamin D3 1000 intl units oral tablet 1 tablet = 1,000 International_Units, By Mouth, Daily, 0 Refills, Maintenance, 02/05/17 10:27:43 AM EDT Start Date: 02/05/17 Status: Ordered Repeat number: 1 Problem List Condition Confirmation Course Effective Dates Status Health St atus Informant Easy bruisability Confirmed Active Hemorrhoids Confirmed Active Social History Social History Type Response Smoking Status Never smoker entered on: 02/05/17 Sex Sex Representation Female (finding) Patient Care team information Care Team Personnel Name: Balaji Mercado MD Position: [facility] Outreach Member Role: PCP Address: [address] [place] [address] Internal Medicine [address] Telecom: Name: Rosalina Fong RN Position: [facility] SN RN Member Role: Primary Care Nurse Name: Crow WERNER, Isabel Baker Position: [facility] ELENA Office Staff Member Role: Primary Care Nurse Name: Mandi Sarmiento Position: [facility] Outreach Member Role: Lifetime Consulting Physician Name: Mer Hines MD Position: [facility] Physician - Pulm/Critical Care Med Service: Pulmonology Member Role: Referring Physician Address: [address] [place] [address] Telecom: Care Team Related Persons Name: ROBERT MARTIN Name: LUIS HARRELL Insurance Providers Guarantor name: NAOMI FRAGOSOJASON Health Plan Information #: 1 Payer: [facility] Member Number: [id number] Policy Number: NA Group Number: [id number] Health Plan Information #: 2 Payer: [facility] Member Number: [id number] Policy Number: NA Group Number: NA
--- OUTSIDE RECORDS SUMMARY | 2024-09-12 14:25 | XMS_ITS | Continuity of Care Document ---
Author Organization [facility] Address [address] [address]- Care Team Providers Care Director Family Name Role Phone Balaji Mercado MD Primary Care Physician [phone] Encounter [facility] Date(s): 08/07/24 - 09/06/24 [facility] [address] [place] [address]- Encounter Type: Triage Allergies, Adverse Reactions, Alerts Substance Criticality Severity Reaction Reaction Severity Status azithromycin dizziness Active cortisone rash Active Zithromax Z-Braulio Acti ve Daypro rash Active Flonase 0.05 mg/inh spray Active Medications acetaminophen 325 mg oral tablet [...] Quantity: 18.0 Unit: g Repeat number: 1 [place] Saline 0.65% nasal gel 1 sprays, 4 [...] 2, puffs, Inhalation, 2 times a day, for 90 days, # 3 each, Refills 3, Tot. Refills 3, Hard Stop 08/12/25 5:17:00 PM EST, 08/17/24 5:17:00 PM EST, Route to Pharmacy Electronically, [id number], [facility], asthma j45.9, 158, cm, 06/29/24 14:58:00 EDT, Height, 60.5, kg, 03/31/23 10:37:00 EDT, Dry Weight Start Date: 08/17/24 Stop Date: 08/12/25 Status: Ordered Quantity: 3.0 Unit: each Repeat number: 4 Symbicort 80mcg/4.5mcg Inhaler 2, puffs, Inhalation, 2 times a day, j45.40, # 3 each, Refills 3, Tot. Refills 3, Maintenance, 08/12/25 5:17:00 PM EST, Route to Pharmacy Electronically, [id number], [facility], asthma j45.9, 158, cm, 06/29/24 14:58:00 EDT, Height, 60.5, kg, 03/31/23 10:37:00 EDT, Dry Weight Start Date: 08/12/25 Status: Ordered Quantity: 3.0 Unit: [...] Team Personnel Name: Balaji Mercado MD Position: [facility] Outreach Member Role: PCP Address: [address] [place] [address] Internal Medicine [place], [place] [address] Telecom: Name: Rosalina Fong RN Position: [facility] SN RN Member Role: Primary Care Nurse Name: Isabel Maria RN Position: [facility] [place]NA Office Staff Member Role: Primary Care Nurse Name: Mandi Sarmiento Position: [facility] Outreach Member Role: Lifetime Consulting Physician Care Team Related Persons Name: ROBERT MARTIN Name: LUIS HARRELL Insurance Providers Guarantor name: NAOMI VERONICA Health Plan Information #: 1 Payer: [facility] Member Number: NA Policy Number: NA Group Number: NA
--- OUTSIDE RECORDS SUMMARY | 2024-09-12 14:26 | XMS_ITS | Data Portability ---
Author Organization [place] - [facility], Allergy Address [address] [place] [address] Care Team Providers Care Heel Padder Name Role Phone TONNY DASH Primary Care Provider [phone] Assessment No assessment recorded. Plan of Treatment Reminders Order Date Submit Date Provider Last Modified By Organization Details Last Modified Time Details Appointments None recorded. Lab None recorded. Referral None recorded. Procedures None recorded. Surgeries None recorded. Imaging None recorded. Medication Orders mupirocin 2 % topical ointment 2023 024 [employer] [facility] #[id number], [address] [place], [place], [id number], 4 15:04:31 Patient TargetsNo targets recorded. Patient InstructionsNo instructions recorded. Reason for Referral None Reported. 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; Note: Date Diagnosed : 1 12:02 PM (D10.1) Not Available [facility] 4 03:32:13 Nasal congestion 65495007 Active 2020 Nasal congestio n; Note: Date Diagnosed : 1 12:02 PM (R09.81) Not Available [facility] 4 03:32:13 Perforation of nasal septum 09571572 Active 2023 ELLIE GREEN MD [address] [place] [address], [facility] [place], [address] , [facility] 4 15:02:28 Ulcerative rhinitis 73805101 Active 2023 ELLIE GREEN MD [address] [address], [place], [address] , [facility] 4 15:03:23 Problem Notes None recorded. Procedures Surgical History Date Name Laterality Status Provider Name and Address Organization Details Recorded Time 08/30/2024 NasalEndos copy_DP completed ELLIE GREEN MD [address] [address], [place], [address], [facility] 08/30/2024 15:02:55 Imaging Results None recorded. Procedure Notes None recorded. Medical Equipment None Reported. Allergies Allergen ID Allergen Name Allergen Category Reaction Reaction Severity Criticality Documentation Date Start Date Code Code System Note Provider Name and Address Organization Details Recorded Time 156934 oxaprozin medicatio n Not available Not available Not available 08/30/2024 14106 RxNorm [place] sagastume [facility] 14:55:54 805896 azithromy noman medicatio n Not available Not available Not available 08/30/2024 46297 RxNorm [place] sagastume [facility] 4 14:56:06 413745 alendrona te sodium medicatio n Not available Not available Not available 08/30/2024 48936 2 RxNorm [place] sagastume [facility] 4 14:56:15 230185 nitrofura ntoin medicatio n Not available Not available Not available 08/30/2024 7454 RxNorm [place] sagastume [facility] 4 14:56:32 450119 Substance with sulfonami de structure and antibacte rial mechanism of action (substanc e) medicatio n Not available Not available Not available 08/30/2024 82566 8003 SNOMED [place] sagastume [facility] 4 14:56:49 Medications Name Sig Start Date Stop Date Status Note LastModified by Organization Details LastModified Time nifedipin e ER 30 mg tablet,ex tended release 24 hr TAKE 2 TABLETS BY MOUTH DAILY active Not Available Not Available No t Available carvedilo l 6.25 mg tablet active Medicati on ID: [id number] B rand Name: carvedil ol Send Method: E-Prescr ibed Sub s Allowed: subs OK Medic ationGen ericName : carvedil ol Not Available Not Available Not Available prednison e 10 mg tablet TAKE 5 TABLETS FOR 2 DAYS. THEN TAKE 4 TABLETS FOR 2 DAYS. THEN TAKE 3 TABLETS FOR 2 DAYS. THEN TAKE 2 TABLETS FOR 2 DAYS. THEN TAKE 1 TABLET 08/30 completed Not Available Not Available Not Available albuterol sulfate 2.5 mg/3 mL (0.083 %) solution for nebulizat ion INHALE 3ML VIA NEBULIZE R EVERY 6 HOURS NEEDED active Not Available Not Available No t Available lisinopri l 20 mg tablet active Medicati on ID: [id number] B rand Name: lisinopr il Send Method: E-Prescr ibed Sub s Allowed: subs OK Medic ationGen ericName : lisinopr il Not Available Not Available Not Available prednison e 20 mg tablet TAKE 2 TABLETS BY MOUTH DAILY 08/30 completed Not Available Not Available Not Available prednison e 5 mg tablet 08/30 completed Not Available Not Available Not Available clobetaso l 0.05 % topical cream 08/30 completed Not Available Not Available Not Available amlodipin e 2.5 mg tablet active Medicati on ID: [id number] B rand Name: amlodipi ne Send Method: E-Prescr ibed Sub s Allowed: subs OK Medic ationGen ericName : amlodipi ne Not Available Not Available Not Available amoxicill in 500 mg tablet TAKE 4 TABLETS ONE HOUR BEFORE DENTAL APPOINTM ENT 08/30 completed Not Available Not Available Not Available Celebrex 200 mg capsule active Not Available Not Available Not Available levothyro xine 100 mcg tablet 08/30 completed Not Available Not Available Not Available oxycodone -acetamin ophen 5 mg-325 mg tablet 08/30 completed Not Available Not Available Not Available levothyro xine 88 mcg tablet active Not Available Not Available Not Available benzonata te 100 mg capsule active Not Available Not Available Not Available doxycycli ne monohydra te 100 mg capsule TAKE 1 CAPSULE BY MOUTH EVERY 12 HOURS 08/30 completed Not Available Not Available Not Available metronida zole 0.75 % topical cream 08/30 completed Not Available Not Available Not Available omeprazol e 20 mg capsule,d elayed release TAKE 1 CAPSULE BY MOUTH DAILY AT 6.30 AM active Not Available Not Available No t Available codeine 10 mg-guaife nesin 100 mg/5 mL oral liquid TAKE 5 TO 10 ML BY MOUTH EVERY 6 HOURS NEEDED FOR COUGH 08/30 completed Not Available Not Available Not Available mupirocin 2 % topical ointment APPLY A SMALL AMOUNT TO THE AFFECTED AREA BY TOPICAL ROUTE 3 TIMES PER DAY active Not Available Not Available No t Available furosemid e 20 mg tablet active Not Available Not Available Not Available hydroxych loroquine 200 mg tablet active Not Available Not Available Not Available labetalol 100 mg tablet active Medicati on ID: [id number] B rand Name: labetalo l Send Method: E-Prescr ibed Sub s Allowed: subs OK Medic ationGen ericName : labetalo l Not Available Not Available Not Available albuterol sulfate HFA 90 mcg/actua tion aerosol inhaler INHALE 2 PUFFS INTO THE LUNGS EVERY 6 HOURS NEEDED FOR WHEEZING 08/30 completed Not Available Not Available Not Available fluticaso ne propionat e 50 mcg/actua tion nasal spray,david penon active Medicati on ID: [id number] B rand Name: fluticas one propiona te Send Method: E-Prescr ibed Sub s Allowed: subs OK Medic ationGen ericName : fluticas one propiona te Not Available Not Available Not Available levothyro xine 112 mcg tablet 08/30 completed Not Available Not Available Not Available oxycodone 5 mg tablet TAKE 1 TAB ORALLY EVERY 6 HOURS NEEDED FOR PAIN. INSURANC E ? 08/30 completed Not Available Not Available Not Available olmesarta n 40 mg tablet active Not Available Not Available Not Available hydrochlo rothiazid e 12.5 mg tablet 08/30 completed Not Available Not Available Not Available Symbicort 80 mcg-4.5 mcg/actua tion HFA aerosol inhaler INHALE 2 PUFFS BY MOUTH TWICE DAILY active Not Available Not Available No t Available OptiChamb er Rena [facility] with Large Mask USE WITH INHALER active Not Available Not Available No t Available Vitals Date Recorded Body height Body mass index (BMI) Body weight Provider Name and Address Organization Details Last Updated DateTime 08/30/2024 157.48 cm 21 kg/m2 87179.12 g Alberta Denny [place] - [facility] 08/30/2024 14:38:22 Social History None recorded. Functional Status None recorded. Mental Status None recorded. Family History Nothing Reported. Medical History No medical history recorded. Gynecological HistoryNo gynecological history recorded. Obstetrics History GPAL:G 0 P 0 0 0 0 Past Encounters Encounter ID Performer Location Encounter Start Date Encounter Closed Date Diagnosis/Indication Diagnosis SNOMED-CT Code Diagnosis ICD10 Code [id number] ELLIE GREEN MD [facility] [address] [address] 08/30/2024 14:24:38 08/30/2024 15:05:46 Perforation of nasal septum 03652537 J34.89 Nasal congestion 5680437 0 R09.81 Ulcerative rhinitis 3666 9007 J34.81 Health Concerns Section Related Observation LastModified by Organization Detai ls LastModified Time None Recorded Concern Status LastModified by Organization Details LastModified Time None Recorded Advance Directives Directive None Recorded Payers Encounter Date Sequence Insurance Name Policy Number Policy Rios Covered Member ID Rios Member ID Guarantor Name 08/30/2024 1 [facility] [id number] 1 Samantha Lr [id number] Samantha Lr Notes Date Note Type Note Provider Name and Address Organization Details Recorded Time 08/30/2024 text/html Hx of epistaxis. More recently it is less often. She has scabs in her nose. When she blows her nose nothing comes out. She feels her nose gets clogged and she can't blow the mucus out. She has stopped flonase since April. She reports to digitally manipulating her nose often with her fingernail. ELLIE GREEN MD [address] [place] [address], [phone], [facility] - [facility] 08/30/2024 15:04:28 OBGyn Episode No OBEpisode recorded.
--- OUTSIDE RECORDS SUMMARY | 2024-09-12 14:26 | XMS_ITS | Continuity of Care Document ---
Author Organization [place] - [facility], [facility] Address [address] [place] [phone] Care Team Providers Care Meat Packager Name Role Phone TONNY DASH Primary Care Provider Assessment No assessment recorded. Plan of Treatment Reminders Order Date Submit Date Provider Last Modified By Organization Details Last Modified Time Details Appointments None recorded. Lab None recorded. Referral None recorded. Procedures None recorded. Surgeries None recorded. Imaging None recorded. Medication Orders mupirocin 2 % topical ointment 2023 024 [facility][id number], [address] [place], [place], [id number], 15:04:31 Patient TargetsNo targets recorded. Patient InstructionsNo instructions recorded. Reason for Referral None Reported. Problems Name Problem SNOMED Code Status Onset Date Resolution Date Notes Provider Name and Address Organization Details Recorded Time Benign neoplasm of tongue 19549231 Active 2020 Benign neoplasm of tongue; Note: Date Diagnosed : 1 12:02 PM (D10.1) Not Available [facility] 4 03:32:13 Nasal congestion 20609289 Active 2020 Nasal congestio n; Note: Date Diagnosed : 1 12:02 PM (R09.81) Not Available [facility] 4 03:32:13 Perforation of nasal septum 27909401 Active 2023 ELLIE GREEN MD [address] [place] [address], [facility] [place], [address] , [facility] - [facility] 4 15:02:28 Ulcerative rhinitis 09105636 Active 2023 ELLIE GREEN MD [address] [address], [place], [address] , [facility] 4 15:03:23 Problem Notes None recorded. Procedures Surgical History Date Name Laterality Status Provider Name and Address Organization Details Recorded Time 08/30/2024 NasalEndos copy_DP completed ELLIE GREEN MD [address] [address], [place], [address], [facility] 08/30/2024 15:02:55 Imaging Results None recorded. Procedure Notes None recorded. Medical Equipment None Reported. Allergies Allergen ID Allergen Name Allergen Category Reaction Reaction Severity Criticality Documentation Date Start Date Code Code System Note Provider Name and Address Organization Details Recorded Time 462804 oxaprozin medicatio n Not available Not available Not available 08/30/2024 13676 RxNorm Alberta sagastume [facility] 14:55:54 684386 azithromy noman medicatio n Not available Not available Not available 08/30/2024 75759 RxNorm Alberta Denisha sagastume [facility] 4 14:56:06 007436 alendrona te sodium medicatio n Not available Not available Not available 08/30/2024 06449 2 RxNorm Alberta sagastume [facility] 4 14:56:15 415473 nitrofura ntoin medicatio n Not available Not available Not available 08/30/2024 7454 RxNorm Alberta sagastume [facility] 4 14:56:32 998799 Substance with sulfonami de structure and antibacte rial mechanism of action (substanc e) medicatio n Not available Not available Not available 08/30/2024 14897 8003 SNOMED Alberta sagastume [facility] 4 14:56:49 Medications Name Sig Start Date Stop Date Status Note LastModified by Organization Details LastModified Time nifedipin e ER 30 mg tablet,ex tended release 24 hr TAKE 2 TABLETS BY MOUTH DAILY active Not Available Not Available No t Available carvedilo l 6.25 mg tablet active Medicati on ID: [id number] B rand Name: carvedil ol Send Method: [...] 20 mg tablet active Medicati on ID: [id number] B rand Name: lisinopr il Send Method: E-Prescr ibed Sub s Allowed: subs OK [facility] lisinopr il Not Available Not [...] 2.5 mg tablet active Medicati on ID: [id number] B rand Name: amlodipi ne Send Method: E-Prescr ibed Sub s Allowed: subs OK [facility] : amlodipi ne Not Available Not [...] 100 mg tablet active Medicati on ID: [id number] B rand Name: labetalo l Send Method: E-Prescr ibed Sub s Allowed: subs OK Medic ationGen ericName : labetalo l Not Available Not Available Not Available albuterol sulfate HFA 90 mcg/actua tion aerosol inhaler INHALE 2 PUFFS INTO THE LUNGS EVERY 6 HOURS NEEDED FOR WHEEZING 08/30 completed Not Available Not Available Not Available fluticaso ne propionat e 50 mcg/actua tion nasal spray,david pension active Medicati on ID: [id number] B rand Name: fluticas one propiona te [...] Available No t Available OptiChamb er Rena [facility] with Large Mask USE WITH INHALER active Not Available Not Available No t Available Vitals Date Recorded Body height Body mass index (BMI) Body weight Provider Name and Address Organization Details Last Updated DateTime 08/30/2024 157.48 cm 21 kg/m2 25986.12 g Alberta Denny [place] - [facility] 08/30/2024 14:38:22 Social History None recorded. Functional Status None recorded. Mental Status None recorded. Family History Nothing Reported. Medical History No medical history recorded. Gynecological HistoryNo gynecological history recorded. Obstetrics History GPAL:G 0 P 0 0 0 0 Past Encounters Encounter ID Performer Location Encounter Start Date Encounter Closed Date Diagnosis/Indication Diagnosis SNOMED-CT Code Diagnosis ICD10 Code [id number] ELLIE GREEN MD [facility] [address] [address] 08/30/2024 14:24:38 08/30/2024 15:05:46 Perforation of nasal septum 35468536 J34.89 Nasal congestion 7778696 0 R09.81 Ulcerative rhinitis 3666 9007 J34.81 Health Concerns Section Related Observation LastModified by Organization Detai ls LastModified Time None Recorded Concern Status LastModified by Organization Details LastModified Time None Recorded Payers Encounter Date Sequence Insurance Name Policy Number Policy Rios Covered Member ID Rios Member ID Guarantor Name 08/30/2024 1 [facility] [id number] 1 Samantha Lr [id number] Samantha Lr Notes Date Note Type Note [...] often with her fingernail. ELLIE GREEN MD [address] [place] [address], [phone], [facility] - [facility] 08/30/2024 15:04:28 OBGyn Episode No OBEpisode recorded.
== END 2024-09-05 13:23 | disposition home or self-care (01) ==
LOC: HO.MAMMO 13:22
PROVIDERS: PCP Internal Medicine; Visit Provider Internal Medicine
DX: Z12.31 Encounter for screening mammogram for malignant neoplasm of breast (principal)
CPT/HCPCS: 77063; 77067

== ENCOUNTER → 2024-09-05 13:30 | Outpatient (BNV) | payer MEDICARE, SELFPAY | PROVIDERS: PCP Internal Medicine; Visit Provider Internal Medicine | DX: Z12.31 Encounter for screening mammogram for malignant neoplasm of breast (principal) | CPT/HCPCS: 77063; 77067 ==

== ENCOUNTER 2025-09-07 13:23 | Outpatient (REF) | payer MEDICARE, SELFPAY ==
--- NOTE | ~2025-09-07 | MM_ITS ---
EXAMINATION: MM SCREENING DIGITAL BREAST TOMOSYNTHESIS, BILATERAL CLINICAL INFORMATION: Screening. Asymptomatic. COMPARISON: Mammography: Comparison is made with available priors TECHNIQUE: Digital breast mammography with tomosynthesis is performed in both the craniocaudal and mediolateral oblique views along with computer-aided detection (CAD). FINDINGS: The breasts are heterogeneously dense, which may obscure small masses. There are no significant masses, abnormal calcifications, or other abnormalities. MM/MM tomosynthesis screening BI IMPRESSION: No mammographic evidence of malignancy. ASSESSMENT: BI-RADS Category 1: Negative RECOMMENDATION: Routine annual mammography screening. 1 year F/U This examination should not preclude the clinical evaluation of a suspicious palpable abnormality. This patient's information was entered into a reminder system with a target due date for their next mammogram. Electronically signed by: Tiny Sanderson DO 09/10/2025 12:53 PM EL
--- OUTSIDE RECORDS SUMMARY | 2025-09-07 17:31 | XMS_ITS | Encounter Summary ---
Author Organization [facility] Address [address] [place] [address] Phone Care Team Providers Care Live In Caregiver Name Role Phone Balaji Mercado MD Unavailable [phone] NP Unavailable [phone] Balaji Mercado MD Primary Care Provider [phone] Maurice Santiago MD Unavailable [phone] Mustapha Gan MD Unavailable [phone] Cuba Bello MD Unavailable [phone] Encounter Details Date Type Department Care Team (Late st Contact Info) Description 01/25/2023 Procedure Pass [facility], Ct Scan - [address] [address] Social History Tobacco Use Types Packs/Day Years Used Date Smoking Tobacco: Never Smokeless Tobacco: Never Alcohol Use Standard Drinks/Week Comments Yes 0 (1 standard drink = 0.6 oz pure alcohol) 1-2 drinks during special events Education Answer Date Recorded Are you interested in more education? Not on guy e 01/29/2023 Are you concerned about learning? Not on file 01/29/2023 No 01/29/2023 No 01/29/2023 Comments No Sex and Gender Information Value Date Recorded Sex Assigned at Not on file Legal Sex Female 10:07 PM EDT Gender Identity Not on file Sexual Orientation Not on file Occupation Industry Job Start Date Job End Date Retired, craft fair hobby Not on file Not on file No t on file documented as of this encounter Functional Status * Calculated C-SSRS Risk Score (Lifetime/Recent) Answer Date of Assessment Author No Risk Indicated 01/25/2023 11:36 AM EDT Nelli Oliva, ALPHONSO * Rush Suicide Severity Rating Scale (Screener/Recent Self-Report) Question Answer Date of Assessment Author 1. Wish to be (Past 1 Month) No 023 11:36 AM EDT Nelli Oliva, RN 2. Non-Specific Active Suici lex Thoughts (Past 1 Month) No 01/25/2023 11:36 AM EDT Re Oliva RN 6. Suicidal Behavior (Lifetime) No 11:36 AM EDT Nelli Oliva, ALPHONSO documented as of this encounter Plan of Treatment Upcoming Encounters Date Type Department Care Team (Late st Contact Info) Description 01/30/2026 3:00 PM EDT Office Visit [facility] Internal Medicine [address] [place] [address] Balaji Mercado MD [address] [place] [address] [email or web address] documented as of this encounter Visit Diagnoses Not on filedocumented in this encounter Additional Health Concerns Infection Onset Date Last Indicated Resolved Time CoV-Risk 02/04/2024 02/04/2024 02/15/2024 1:22 AM EDT CDiff-Risk 03/06/2024 03/06/2024 03/13/2024 1:25 AM EDT Assessment Noted Time PHQ-2 Depression Total Score: 0 09/18/20 21 2:38 PM EST documented as of this encounter Care Teams Live In Caregiver Relationship Specialty Start Date End Date Balaji Mercado MD [address] [place] [address] PCP - General Internal Medicine 08/09/17 Balaji Mercado MD [address] [place] [address] [email or web address] Historical LMR Provider 07/24/17 09/08/[address] NP [address] [place] [phone] Historical LMR Provider 07/24/17 09/08/23 Maurice Santiago MD [address] [place] [phone] Rheumatology 06/06/20 Mustapha Gan MD [address] [place] [address] Dr Abdi [address] [place] [address] Orthopedic Surgery 09/09/23 Cuba Bello MD [address] [place] [address] Dr Abdi [address] [place] [address] [email or web address] Otolaryngology 02/21/24 documented as of this encounter Additional Source Comments The information contained in this document represents components of the legal health record. It is not the complete legal health record.[facility]
--- OUTSIDE RECORDS SUMMARY | 2025-09-07 17:31 | XMS_ITS | Clinical Summary ---
Author Organization [facility] Address [address] [place] [phone] Phone Care Team Providers Care Quality Systems Specialist Name Role Phone Balaji Mercado MD Primary Care Provider [phone] Maurice Santiago MD Unavailable Mustapha Gan MD Unavailable [phone] Cuba Bello MD Unavailable [phone] Allergies Active Allergy Reactions Criticality Noted Date Comments Alendronate Other (See Comments) 06/06/2020 Knees Became painful and swollen . Had to take prednisone Amlodipine Other (See Comments) 08/30/2021 Leg edema Amoxicillin-Pot Clavulanate Diarrhea 08/12/2021 Azithromycin Rash Low 08/09/2017 Sulfamethoxazole-Trimethop rim GI Upset,Headaches,Jai sea and/or Vomiting 07/20/2021 Nosebleeds,TONGUE SORE Carvedilol Joint Pain Low 08/30/2021 Hydrochlorothiazide Hyponatremia 08/30/2021 Labetalol Swelling 08/30/2021 Lip swelling Nitrofurantoin Monohyd/M-Cryst GI Upset 07/14/2021 Oxaprozin Rash Low 08/09/2017 Sulfa (Sulfonamide Antibiotics) 08/12/2021 Dizziness, GI upset, diarrhea, weakness Medications celecoxib (CELEBREX) 200 MG capsule Take 200 mg by mouth 2 (two) times a day. Active loratadine (CLARITIN) 10 mg tablet Take 10 mg by mouth daily. Active hydrOXYchloroQUI NE (PLAQUENIL) 200 mg tablet alternating days from 1 (200 MG) daily to 2 (400 MG) daily Active multivitamins capsule Take 2 capsules by mouth daily. One a day petite brand Active cholecalciferol (VITAMIN D3) 1,000 unit tablet Take 1,000 Units by mouth daily. Active metroNIDAZOLE (METROCREAM) 0.75 % cream Apply 1 Application topically 2 (two) times a day. To face Active Lactobacillus rhamnosus GG (CULTURELLE ORAL) Take 1 capsule by mouth daily. Active betamethasone dipropionate 0.05 % ointment Apply 1 application. topically 2 (two) times a day as needed. 2 Active ID-clobetasol propionate (20-577) 0.05 % topical ointment Apply 1 Application topically daily as needed. 3 Active mupirocin (BACTROBAN) 2 % ointment Apply 1 Application topically 2 (two) times a day as needed. To LE 3 Active cocoa butter/zinc oxide (CALMOL-4 RE[address]) Place 1 suppository rectally every evening. Active inhaler spacing device (AEROCHAMBER,JOAQUIN ATHERITE) SpcrIndications: Persistent cough Inhale 1 each into the lungs every 6 (six) hours as needed. 1 each 4 Active sodium chloride/aloe vera (AYR SALINE GEL NASL) 2 (two) times a day. 4 Active albuterol 2.5 mg /3 mL (0.083 %) nebulizer solutionIndicati ons:Bronchospasm USE 1 VIAL VIA NEBULIZER EVERY 6 HOURS NEEDED 720 mL 1 4 Active SYMBICORT 160-4.5 mcg/actuation inhaler Inhale 2 puffs into the lungs 2 (two) times a day. 4 Active albuterol 90 mcg/actuation inhaler Inhale 2 puffs into the lungs 2 (two) times a day. Up to every 6 hours as needed 4 Active L. rhamnosus GG/inulin (CULTURELLE DIGESTIVE HEALTH ORAL) Take 1 capsule by mouth daily. 4 Active levothyroxine (SYNTHROID, LEVOTHROID) 88 MCG tabletIndication s:Hypothyroidism , unspecified type One tablet each am except take 2 tablets on every Wednesday. Take on empty stomach 100 tablet 3 5 Active olmesartan (BENICAR) 40 mg tabletIndication s:Benign essential hypertension TAKE 1 TABLET BY MOUTH DAILY 90 tablet 3 5 Active NIFEdipine (PROCARDIA XL) 30 MG 24 hr tabletIndication s:Benign essential hypertension Take 1 tablet (30 mg total) by mouth 2 (two) times a day. 180 tablet 3 5 Active furosemide (LASIX) 20 MG tablet Take 1 tablet (20 mg total) by mouth 3 (three) times a week. 36 tablet 3 5 Active loperamide (IMODIUM) 2 mg capsule Take 2 mg by mouth 2 (two) times a day. 5 Active Active Problems Problem Noted Date Diagnosed Date Impacted cerumen of left ear 05/01/2025 Assessment & Plan (05/01/2025 3:48 PM EDT): On examination patient noted to have a left-sided ear cerumen impaction, unable to visualize tympanic membrane. She notes fullness in her ear but denies any difficulty hearing. Discussed management including [id number] Debrox drops to soften and remove the wax. Advised to use a mixture of hydroperoxide and water with a bulb syringe to help clear up her ear. Patient is interested in trying the Debrox but is not interested in the lavage at this time. Fatigue 04/20/2025 Assessment & Plan (04/20/2025 3:53 PM EDT): She notes a recent onset of dizziness that did not occur postsurgery. This appears to be mostly positional where she just has to slow herself down. Given that she just had surgery 2 weeks ago, will obtain a CBC to assess for anemia, BMP to assess for electrolyte abnormalities, and TSH given that she is currently on levothyroxine. Her blood pressure was slightly decreased in the office today but she was asymptomatic. It very well could be that she has positional orthostasis due to decreased appetite, advised patient on adequate calorie intake and hydration. Bronchospasm 04/24/2024 Assessment & Plan (04/24/2024 4:42 PM EDT): Most likely related to COPD exacerbation. CTA of the chest performed in February 2024 which showed diffuse emphysematous changes. CXR negative. Recent admission to the hospital for copd exacerbation placed on nebs, steroids, and doxy with improvement. . Patient still noted to have wheezing on physical exam today. -Prednisone 40mg x 5 days -continue nebs q6h prn -continue symibicort bid -f/u with Pulm -PFTs ordered for [facility] Hyponatremia 04/24/2024 Assessment & Plan (05/01/2025 3:47 PM EDT): She was last seen in the office on 04/20/2025 for a follow-up from a hospitalization due to robotic low anterior resection with colorectal anastomosis and a diverting loop ileostomy with vaginal cuff repair performed by Dr. Dru Sharp on 03/30/2025. At our visit she had noted significant fatigue for which lab work was ordered. Significant hyponatremia was noted at 126 and hyperkalemia was noted at 5.7. Likely in the setting of fluid loss from the ileostomy, however patient was advised to go to the ER for fluid repletion. However, at the ER she did not receive an IV and was ultimately discharged home with no intervention. She got lab work done prior to the visit today but results have not come in yet. She notes continued fatigue. She has a follow-up with her surgeon on 05/04/2025 for which she is also getting lab work done through them. She has been trying to maintain her fluid status. Ultimately, other than the fatigue she is asymptomatic. Discussed in depth how hyponatremia works, along with the pathophysiology of repletion and preventing rapid correction and cerebral edema. Patient notes understanding. Assessment & Plan (04/24/2024 4:44 PM EDT): Patient noted to have hyponatremia in the hospital ranging from 129-131. She has been off the HCTZ and has been on Lasix daily for LE edema. Lasix changed to 3 x weekly She was placed on a 1.5L fluid restriction LE 1+ edema - BMP drawn today, await results -continue fluid restriction of 1.5L until results from BMP Shortness of breath 03/16/2024 Overview (05/25/2024): Echo done 04/03/24 at [facility] [place] systolic function is normal. EF 63%, no obvious valvular pathology noted on ECHO PFT sched for 06/08/24 2pm Assessment & Plan (03/16/2024 8:07 PM EDT): She was recently in the hospital for sob and underwent a CT angiogram that showed a ground glass nodule in the right upper lobe 1.5cm in size. They found emphysema and diffuse airway wall thickening. She was seen in f/u in the office and continued on a prednisone taper -She states she has used the nebulizer but when she tapered off the prednisone her wheezing became worse. Patient noted to have wheezing and 2+ LE pitting edema -She has a scheduled Pulm appt on 03/23 -continue nebulizer treatments -start Prednisone 20mg po daily x 5 days -Lasix 20mg daily -continue prilosec while on prednisone -echo -[facility] Wheezes 02/16/2024 Assessment & Plan (02/16/2024 3:09 PM EDT): Cause of this wheezing is unclear. Discussed with Dr. Mercado and she has not hx of this. Her CXR from 02/09 was clear and resp swabs were negative. She has no hx of heart failure and no murmur heard on exam, or other physical evidence of heart failure. I am Rxing a 10 day prednisone taper and she will see Dr. Mercado Wednesday in f/u. If she feels worse she is to call [facility], or go to the ER Colovaginal fistula 02/16/2024 Assessment & Plan (04/20/2025 3:52 PM EDT): Patient with a history of a colovaginal fistula status post robotic low anterior resection with colorectal anastomosis and diverting loop ileostomy with a vaginal cuff repair performed by Dr. Gonsales and Dr. Sharp on 03/30/2025. Overall she is doing well, has followed with gynecology who reports no concerns. Has an upcoming appointment with colorectal surgery on 05/04/2025. Assessment & Plan (02/16/2024 3:14 PM EDT): She tells me she has a fistula, potentially two. She is working with surgery to try to establish a plan to correct this. Persistent cough 02/10/2024 Assessment & Plan (02/16/2024 3:08 PM EDT): Cause of this wheezing is unclear. Discussed with Dr. Mercado and she has not hx of this. Her CXR from 02/09 was clear and resp swabs were negative. She has no hx of heart failure and no murmur heard on exam, or other physical evidence of heart failure. I am Rxing a 10 day prednisone taper and she will see Dr. Mercado Wednesday in f/u. If she feels worse she is to call [facility], or go to the ER Assessment & Plan (02/10/2024 4:41 PM EDT): Ongoing cough after acute sinusitis. Impaired sinus drainage. Continue humidifier. Consider Boogie Micro-Mist OR warm water gargle. Continue honey. Stay hydrated. Continue Claritin, Flonase. IF the Robitussin with codeine is making no difference--move to just regular Robitussin (guaifenesin) or plain Mucinex. This is just to thin mucous so it's easier to drain. Today and over the weekend please try albuterol inhaler. I am prescribing it for the wheezing you are having. If any worsening symptoms or concerns please f/u with office. Vaginal discharge 10/23/2021 Assessment & Plan (07/18/2022 5:26 PM EDT): Persistent symptoms for almost a year with no clear etiology. She elects to trial Vagifem. We discussed that use of vaginal estradiol is safe and does not significantly impact systemic hormonal levels. I do not see a wet mount in her history thus this could be considered if no improvement. Rx sent to pharmacy, she will follow up if discharge does not improve. History of endometrial cancer 10/23/2021 Overview (03/11/2023): [facility] size worker/onc (size worker was Dr Moreira) Acute cystitis without hematuria 07/18/2021 Assessment & Plan (07/18/2021 1:54 PM EDT): Urinalysis came back positive for elevated white cell count and urine severely so. There is no flank pain no signs of pyelonephritis but perhaps a simple cystitis. Treatment with antibiotics indicated, await culture and sensitivity and empirically start Augmentin 500 mg twice daily take with food. Patient had bad experience with Macrodantin before, then bad experience with Bactrim. Patient has tolerated amoxicillin in the past hence this choice. Aphthous ulcer of mouth 07/18/2021 Assessment & Plan (07/18/2021 1:53 PM EDT): The lesions in the mouth were scrutinized for thrush but there were a few on the tongue that looks familiar for aphthous ulcers, perhaps ulcers to harsher were but there was no signs of secondary infection. We will continue to monitor. There was not enough pain to suggest or prescribe lidocaine. Acquired hypothyroidism 02/08/2018 Allergic rhinitis 02/08/2018 Bruising 02/08/2018 Hyperlipidemia 02/08/2018 Assessment & Plan (07/18/2021 1:52 PM EDT): On 112 mcg of Levoxyl and no signs of clinical hypo or hyperthyroidism. Dr. Santiago had obtained a TSH as a favor to us and it came back at 0.7 within normal limits. Therefore no changes to the levothyroxine. Patient was explained this. Rheumatoid arthritis 02/08/2018 Overview (06/07/2024): [facility]- last OV 05/18/24 r/t 4m on plaquenil Assessment & Plan (02/16/2024 5:11 PM EDT): She is advisied to hold the Celebrex while taking the prednisone Chronic right-sided low back pain with right-nitza ed sciatica 08/11/2017 Pure hypercholesterolemia 08/11/2017 Benign essential hypertension 08/11/2017 Assessment & Plan (02/16/2024 3:05 PM EDT): B/p severely elevated at the beginning of the visit. It did come down some. Would enc her to take once back home and rested. I will ask Nsg to angela her later today/ tomorrow to check what her reading are. We are going to hold her HCTZ at pres due to her hyponatremia. She will cont olmesartan 40mg po qd. She will see Dr. Mercado on Wednesday in follow up Assessment & Plan (02/10/2024 4:42 PM EDT): BP elevated. Continue to avoid systemic decongestants. Will continue to monitor with PCP. Assessment & Plan (07/18/2021 1:51 PM EDT): Second blood pressure is better than the first but still requires attention. Hence patient will come back and see Dr. Mercado as scheduled end of next week. Stay off of the hydrochlorothiazide and follow-up with the sodium level either Wednesday or Wednesday. Low-sodium diet reinforced especially hidden salt. Resolved Problems Problem Noted Date Diagnosed Date Resolved Date Hyponatremia 07/18/2021 04/24/2024 Assessment & Plan (02/16/2024 5:10 PM EDT): She had labs done 02/09 that revealed a sodium of 124. She developed this in the past back in 11/05 with HCTZ, but, had been stable on a lower dose. We are drawing a repeat today STAT. For now, Will ask her to HOLD her HCTZ. ADDENDUM stat level was 131, pt and Dr. Mercado notified Assessment & Plan (07/18/2021 1:55 PM EDT): Hyponatremia noted again on exam but the patient had just stopped the hydrochlorothiazide. So lets allow the patient a few days of being off of it over the weekend and Wednesday and then come back either Wednesday or Wednesday for nonfasting sodium level. We should then see this go up over time possibly into the low 130s. If still persisting low then consider renal consult. Encounters Date Type Department Care Team Description 07/30/2025 4:30 PM EDT Office Visit [facility] [address] [facility] [place] [address] Balaji Mercado MD Routine general medical examination at a health care facility (Primary Dx); Need for prophylactic vaccination and inoculation against influenza; Benign essential hypertension; Pure hypercholesterolemia; Rheumatoid arthritis involving multiple sites with positive rheumatoid factor; Primary osteoarthritis involving multiple joints; Hypothyroidism, unspecified type 06/29/2025 Orders Only [facility] [address] [place] [address] Balaji Mercado MD 06/22/2025 3:30 PM EDT Office Visit [facility] Internal [facility] [address] [facility] [place] [address] Balaji Mercado MD Benign essential hypertension (Primary Dx); Hypothyroidism, unspecified type 06/22/2025 Orders Only [facility] [address] [facility] [place] [address] ProviderJoe MD 06/20/2025 Orders Only [facility] [address] [place] [address] Provider, MD Joe from Last 3 Months Immunizations Immunization Administration Dates Next Due COVID-19 (Pre-07/26) Moderna Vaccine, mRNA, PF 0 01/02/2021,12/05/2020 Pneumococcal conjugate PCV13 06/24/2016 Pneumococcal polysaccharide PPSV23 06/06/2020, Td (adult) 5 Lf Tetanus Toxoid, PF, Adsorbed 10/2001 Td (adult),2 Lf Tetanus Toxoid, PF, Adsorbed Tdap 04/21/2012 Family History Medical History Relation Comments Hypertension Brother 1 Rheumatoid arthritis Brother 1 Hypertension Brother 2 Aneurysm Father brain Hypertension Father Stroke Father Rheumatoid arthritis Maternal Uncle Lymphoma Mother Throat cancer Mother Hypertension Sister Relation Status Comments Brother 1 Brother 2 Father (Age 53) Maternal Uncle Mother (Age 53) Sister suspecting auto immune disease, still getting worked up-noted 05/26/24 Social History Tobacco Use Types Packs/Day Years Used Date Smoking Tobacco: Never Smokeless Tobacco: Never Tobacco Cessation:Counseling Given: Not Answered Alcohol Use Standard Drinks/Week Comments Not Currently 0 (1 standard drink = 0.6 oz pure alcohol) 1-2 drinks during special events but rare Education Answer Date Recorded Are you interested in more education? Not on guy e 01/29/2023 Are you concerned about learning? Not on file 01/29/2023 No 01/29/2023 No 01/29/2023 Digital Access Answer Date Recorded No 02/24/2023 No 02/24/2023 Reliable internet access at home? Not on file 02/24/2023 Device with a working camera? Not on file Intimate Partner Violence Answer Date R ecorded Denied Basic Needs Not on file 07/29/2025 In the past 12 months have y ou been in a relationship with a person who hurts, threatens, or tries to control you? No 07/29/2025 Worried food would run out Not on file 07/29 In the past 12 months have y ou been in a relationship with a person who hurts, threatens, or tries to control you? No 07/29/2025 Comments No Sex and Gender Information Value Date Recorded Sex Assigned at Not on file Legal Sex Female 10:07 PM EDT Gender Identity Not on file Sexual Orientation Not on file Occupation Industry Job Start Date Job End Date Retired, craft fair hobby Not on file Not on file No t on file Last Filed Vital Signs Vital Sign Reading Time Taken Comments Blood Pressure 138/68 07/30/2025 5:17 PM EDT Pulse 76 07/30/2025 4:57 PM EDT Temperature 36.2 C (97.1 F) 07/30/2025 4:57 PM EDT Respiratory Rate 13 07/30/2025 4:57 PM EDT Oxygen Saturation 98% 07/30/2025 4:57 PM EDT Inhaled Oxygen Concentration - - Weight 50.7 kg (111 lb 12.8 oz) 07/30/2025 4:57 PM EDT Height 157 cm (5' 1.81 ) 07/30/2025 4:57 PM EDT Body Mass Index 20.57 07/30/2025 4:57 PM EDT Plan of Treatment Upcoming Encounters Date Type Department Care Team (Late st Contact Info) Description 01/30/2026 3:00 PM EDT Office Visit [facility] [address] [place] [address] Balaji Mercado MD [address] [place] [address] [email or web address] Health Maintenance Due Date Last Done Comments ZOSTER VACCINES (1 of 2) 1997 RSV VACCINE (1 - 1-dose 75+ series) 2022 FOLLOW UP BONE DENSITY TESTING 08/06/2024 08/06/2022, 10/26/2019, 10/17/2015, Additional history exists INFLUENZA VACCINE (#1) 2025 COVID-19 VACCINE ( season) 2025 07/15/2024, 07/17/2023, 09/04/2022, Additional history exists BLOOD PRESSURE 01/28/2026 07/30/2025 TSH LEVEL 04/20/2026 04/20/2025, 10/04, 07/18/2024, Additional history exists CREATININE LEVEL 06/11/2026 06/11/2025, , 05/01/2025, Additional history exists POTASSIUM LEVEL 06/11/2026 06/11/2025, 04/04, 04/20/2025, Additional history exists DEPRESSION SCREENING 07/29/2026 07/29/2025 LIPID PANEL 11/26/2028 11/26/2023, 06/05, 07/06/2018, Additional history exists Adult Td,Tdap Booster 07/21/2029 07/21/2019 , 04/21/2012, 09/03/2002 PNEUMOCOCCAL VACCINES (50+ years) Completed 06/06/2020, 06/24/2016, 08/05/2012 HEPATITIS C SCREENING Completed 06/25/2020 OSTEOPOROSIS SCREENING INITIAL (ONE-TIME) Completed 08/06/2022, 10/26/2019, 10/17/2015, Additional history exists SMOKING STATUS SCREENING (Once After 26 Yrs) Completed 07/30/2025 HEPATITIS A VACCINES Aged Out No long er eligible based on patient's age to complete this topic HIB VACCINES Aged Out No longer eligi ble based on patient's age to complete this topic MENINGOCOCCAL VACCINES (ACWY) Aged Out No longer eligible based on patient's age to complete this topic MENINGOCOCCAL VACCINES (B) Aged Out N o longer eligible based on patient's age to complete this topic Medical Devices Not on file Procedures Procedure Name Priority Date/Time Associated Diagnosis Comments OUTSIDE LAB Routine 06/11/2025 1:32 PM EDT OUTSIDE POTASSIUM LEVEL Routine 06/11/2025 OUTSIDE SERUM CREATININE LEVEL Routine 06/11/2025 TSH WITH REFLEX Routine 04/20/2025 3:17 PM EDT Hypothyroidism, unspecified type LIPID PANEL Routine 11/26/2023 2:32 PM EST Impaired fasting glucose HM DEXA SCAN Routine 08/06/2022 HEPATITIS C ANTIBODY, QUALITATIVE Routine 06/25/2020 10:06 AM EDT Need for hepatitis C screening test from Last 3 Months or Most Recently Relevant to Health Maintenance Results * Outside Lab (06/11/2025 1:32 PM EDT) Historical Provider MD LAB BLOOD BKR ORDERABLES Final Result * (ABNORMAL) Outside Potassium Level (06/11/2025) Potassium level - External 5.2(A) 3.4 - 5.0 mmol/L Historical Provider MD LAB BLOOD ORDERABLES Milagro l Result * Outside Serum Creatinine Level (06/11/2025) Creatinine, serum - External 0.9 0.8 - 1.3 mg/dL Historical Provider MD LAB BLOOD ORDERABLES Milagro l Result * TSH with reflex (04/20/2025 3:17 PM EDT) TSH 0.88 0.27 - 4.20 uIU/mL [facility] Blood 04/20/2025 3:17 PM EDT 04/20/2025 3:22 PM EDT Balaji Mercado MD LAB BLOOD BKR ORDERABLES Milagro godinez Result Performing Organization Address [facility] Co de Phone Number [address] [address] * (ABNORMAL) Lipid panel (11/26/2023 2:32 PM EST) HDL 81 mg/dL [facility] Comment: Interpretation <40 mg/dL: Low HDL cholesterol (major risk factor for CHD) Greater than or equal to 60 mg/dL: High HDL cholesterol ( negative risk factor for CHD) HDL - cholesterol is affected by a number of factors, e.g. smoking, excerise, hormones, sex and age. CHOLESTEROL 219 0 - 240 mg/dL [facility] TRIGLYCERIDES 72 30 - 160 mg/dL [facility] LDL 124 50 - 129 mg/dL [facility] Comment: LDL levels in terms of risk for coronary heart disease: <100 mg/dL: Optimal 100-129 mg/dL: Near or above optimal 130-159 mg/dL: Borderline high 160-189 mg/dL: High >190 mg/dL: Very High CARDIAC RISK RATIO 2.7(L) 3.3 - 4.4 C [facility] Blood 11/26/2023 2:32 PM EST 11/26/2023 2:36 PM EST Balaji Mercado MD LAB BLOOD BKR ORDERABLES Milagro godinez Result Performing Organization Address [facility] Co de Phone Number [address] [address] * HM DEXA SCAN (08/06/2022) Historical Provider HEALTH MAINTENANCE Edited Result - Final * Hepatitis C antibody, qualitative (06/25/2020 10:06 AM EDT) HCV NON-REACTIV E NON-REACTI VE [facility] Blood 06/25/2020 10:0 6 AM EDT 06/25/2020 10:14 AM EDT us Balaji Mercado MD LAB BLOOD BKR ORDERABLES Milagro godinez Result [facility] [address] [place] [address] from Last 3 Months or Most Recently Relevant to Health Maintenance Insurance [employer] [place] [employer] HMO REPLACEMENT MEDIC[facility] PART A & [facility] MEDICARE HMO REPLACEMENT MEDICARE PART A & B [facility] MEDICARE HMO REPLACEMENT [facility] MEDICARE HMO REPLACEMENT [facility] MEDICARE HMO REPLACEMENT MEDICARE PART A & B [facility] MEDICARE HMO REPLACEMENT [facility] MEDICARE HMO REPLACEMENT MEDICARE PART A & [place] [id number] [facility] MEDICARE HMO REPLACEMENT MEDICARE PART A & B [facility] MEDICARE HMO REPLACEMENT MEDICARE PART A & [facility] Care Teams Quality Systems Specialist Relationship Specialty Start Date End Date Balaji Mercado MD [address] [place] [phone] [email or web address] PCP - General Internal Medicine 08/09/17 Maurice Santiago MD [address] [place] [phone] Rheumatology 06/06/20 Mustapha Gan MD [address] [place] [address] [place] [id number] Orthopedic Surgery 09/09/23 Cuba Bello MD [address] [place] [address] [place] [address] [email or web address] Otolaryngology 02/21/24 Additional Source Comments The information contained in this document represents components of the legal health record. It is not the complete legal health record.[facility] [facility]
--- OUTSIDE RECORDS SUMMARY | 2025-09-07 17:31 | XMS_ITS | Data Portability ---
Author Organization [place] - [facility], Allergy Address [address] [place] [phone] Care Team Providers Care Vice President Diversity Name Role Phone TONNY DASH Primary Care Provider Assessment No assessment recorded. Plan of Treatment Reminders Order Date Submit Date Provider Last Modified By Organization Details Last Modified Time Details Appointments None recorded. Lab None recorded. Referral None recorded. Procedures None recorded. Surgeries None recorded. Imaging None recorded. Medication Orders mupirocin 2 % topical ointment 2023 024 [id number], [address] [place], [place], [phone], 15:04:31 Patient TargetsNo targets recorded. Patient InstructionsNo instructions recorded. Reason for Referral None Reported. 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,[place] [address], [place], [address] , [place] - [facility] 4 15:02:28 Ulcerative rhinitis 58991424 Active 2023 ELLIE GREEN MD [address] [address], [place], [address] , [facility] 4 15:03:23 Problem Notes None recorded. Procedures Surgical History Date Name Laterality Status Provider Name and Address Organization Details Recorded Time 08/30/2024 NasalEndos copy_DP completed ELLIE GREEN MD [address] [address], [place], [phone], [facility] 08/30/2024 15:02:55 Imaging Results None recorded. Procedure Notes None recorded. Medical Equipment None Reported. Allergies Allergen ID Allergen Name Allergen Category Reaction Reaction Severity Criticality Documentation Date Start Date Code Code System Note Provider Name and Address Organization Details Recorded Time 858605 oxaprozin medicatio n Not available Not available Not available 08/30/2024 66962 RxNorm Alberta sagastume [facility] 14:55:54 897043 azithromy noman medicatio n Not available Not available Not available 08/30/2024 10515 RxNorm Alberta Denisha sagastume [facility] 14:56:06 904312 alendrona te sodium medicatio n Not available Not available Not available 08/30/2024 25730 2 RxNorm Alberta sagastume [facility] 14:56:15 683781 nitrofura ntoin medicatio n Not available Not available Not available 08/30/2024 7454 RxNorm Alberta sagastume [facility] 4 14:56:32 710707 Substance with sulfonami de structure and antibacte rial mechanism of action (substanc e) medicatio n Not available Not available Not available 08/30/2024 10448 8003 SNOMED Alberta sagastume [facility] 4 14:56:49 Medications Name Sig Start Date Stop Date Status Note LastModified by Organization Details LastModified Time nifedipin e ER 30 mg tablet,ex tended release 24 hr TAKE 2 TABLETS BY MOUTH DAILY active Not Available Not Available No t Available carvedilo l 6.25 mg tablet active Medicati on ID: [id number] B rand Name: carvedil ol Send Method: [...] 20 mg tablet active Medicati on ID: 550696 B rand Name: lisinopr il Send Method: [...] 2.5 mg tablet active Medicati on ID: 284619 B rand Name: amlodipi ne Send Method: E-Prescr ibed Sub s Allowed: subs OK [facility] amlodipi ne Not Available [...] 100 mg tablet active Medicati on ID: [id number] B rand Name: labetalo l Send Method: E-Prescr ibed Sub s Allowed: subs OK Medic ationGen ericName : labetalo l Not Available Not Available Not Available albuterol sulfate HFA 90 mcg/actua tion aerosol inhaler INHALE 2 PUFFS INTO THE LUNGS EVERY 6 HOURS NEEDED FOR WHEEZING 08/30 completed Not Available Not Available Not Available fluticaso ne propionat e 50 mcg/actua tion nasal spray,[facility] active Medicati on ID: [id number] B rand Name: fluticas one propiona te [...] Available No t Available [facility] with Large Mask USE WITH INHALER active Not Available Not Available No t Available Vitals Date Recorded Body height Body mass index (BMI) Body weight Provider Name and Address Organization Details Last Updated DateTime 08/30/2024 157.48 cm 21 kg/m2 02520.12 g Alberta Denny [place] - [facility] 08/30/2024 14:38:22 Social History None recorded. Functional Status None recorded. Mental Status None recorded. Family History Nothing Reported. Medical History No medical history recorded. Gynecological HistoryNo gynecological history recorded. Obstetrics History GPAL:G 0 P 0 0 0 0 Past Encounters Encounter ID Performer Location Encounter Start Date Encounter Closed Date Diagnosis/Indication Diagnosis SNOMED-CT Code Diagnosis ICD10 Code Diagnosis IMO Codes Diagnosis Note [id number] LELIE GREEN MD [facility] [address] [address] 08/30/2024 14:24:38 08/30/2024 15:05:46 Perforation of nasal septum 55385175 J34.89 small. likely from digitally manipulati ng her nose. I recommend saline spray and 2 weeks of mupirocin. I discussed off label use. Nasal congestion 8755735 0 R09.81 see above Ulcerative rhinitis 3666 9007 J34.81 see above Health Concerns Section Related Observation LastModified by Organization Detai ls LastModified Time None Recorded Concern Status LastModified by Organization Details LastModified Time None Recorded Advance Directives Directive None Recorded Payers Insurance Date Sequence Insurance Name Policy Number Policy Rios Covered Member ID Rios Member ID Guarantor Name 08/30/2024 1 [facility] [place] [place] [id number] 1 Samantha Lr [id number] Samantha Lr Notes Date Note Type Note Provider Name and Address Organization Details Recorded Time 08/30/2024 text/html ROS as noted in the HPI Hx of epistaxis. More recently it is less often. She has scabs in her nose. When she blows her nose nothing comes out. She feels her nose gets clogged and she can't blow the mucus out. She has stopped flonase since April. She reports to digitally manipulating her nose often with her fingernail. ELLIE RGEEN MD [address] [place] [address], [phone], [facility] - [facility] 08/30/2024 15:04:28 OBGyn Episode No OBEpisode recorded.
== END 2025-09-07 13:24 | disposition home or self-care (01) ==
LOC: HO.MAMMO 13:23
PROVIDERS: PCP Internal Medicine; Visit Provider Internal Medicine
DX: Z12.31 Encounter for screening mammogram for malignant neoplasm of breast (principal)
CPT/HCPCS: 77063; 77067

== ENCOUNTER → 2025-09-07 13:30 | Outpatient (BNV) | payer MEDICARE, SELFPAY | PROVIDERS: PCP Internal Medicine; Visit Provider Internal Medicine | DX: Z12.31 Encounter for screening mammogram for malignant neoplasm of breast (principal) | CPT/HCPCS: 77063; 77067 ==